=== PATIENT | male | born 1930 | race Caucasian/White ===

== ENCOUNTER → 2016-04-15 | Outpatient (CLI) | payer MEDICARE, OTHER ==
[2016-04-15 10:26] LABS: HEMATOCRIT 35.2 % (37.9-51.0); HEMOGLOBIN 11.2 g/dL (13.5-17.0); HGB HCT DIFFERENCE -1.6; MEAN CORPUSCULAR HEMOGLOBIN 28.8 pg (27.0-33.4); MEAN CORPUSCULAR HGB CONC 31.8 g/dL (32.0-36.0); MEAN CORPUSCULAR VOLUME 91 fl (80-97); RED BLOOD COUNT 3.88 10^6/uL (4.35-5.55); RED CELL DISTRIBUTION WIDTH 13.8 % (11.5-14.0); WHITE BLOOD COUNT 13.1 10^3/uL (4.0-10.5)
[2016-04-15 10:35] LABS: APPEARANCE,URINE CLEAR; BILIRUBIN,URINE NEGATIVE (NEGATIVE); GLUCOSE, URINE NEGATIVE (NEGATIVE); KETONES,URINE NEGATIVE (NEGATIVE); LEUKOCYTE ESTERASE,URINE NEGATIVE (NEGATIVE); NITRITE,URINE NEGATIVE (NEGATIVE); PROTEIN,URINE NEGATIVE (NEGATIVE); URINE SPECIFIC GRAVITY 1.011; UROBILINOGEN,URINE NEGATIVE mg/dL (<2.0)
[2016-04-15 10:51] LABS: ANION GAP 14 (5-19); BLOOD UREA NITROGEN 26 mg/dL (7-20); CALCIUM 9.6 mg/dL (8.4-10.2); CARBON DIOXIDE 25 mmol/L (22-30); CHLORIDE 102 mmol/L (98-107); CREATININE RESULT 1.75 mg/dL (0.52-1.25); GLUCOSE 142 mg/dL (75-110); POTASSIUM 4.8 mmol/L (3.6-5.0); SODIUM 140.7 mmol/L (137-145)
== END ==
LOC: OD 09:36
PROVIDERS: ATTEND Internal Medicine Nephrology
DX: N18.3 Chronic kidney disease, stage 3 (moderate) (principal); E11.9 Type 2 diabetes mellitus without complications; I50.9 Heart failure, unspecified
CPT/HCPCS: 36415; 80048; 81001; 85027

== ENCOUNTER 2016-06-12 20:57 | Inpatient (IN) | payer MEDICARE, OTHER ==
[2016-06-12] MEDS ORDERED: IPRATROPIUM/ALBUTEROL 0.5-2.5 MG/3 ML AMPUL NEB ONE ×2 (21:36→21:39)
[2016-06-12] MEDS ORDERED: ALBUTEROL SULFATE 0.083% NEB 2.5 MG/3 ML AMPUL NEB ONE ×2 (21:36→21:39)
[2016-06-12] MEDS ORDERED: METHYLPREDNISOLONE INJ 125 MG/2 ML SDV IV ONE (21:37)
--- NOTE | 2016-06-12 21:39 | ER Document Report ---
ED Respiratory Problem - General Chief Complaint: Shortness Of Breath Stated Complaint: WEAKNESS Time seen by provider: 21:37 Mode of Arrival: Medic Information source: Patient TRAVEL OUTSIDE OF THE [place] IN LAST 30 DAYS: No - HPI Patient complains to provider of: Chest pain, COPD, Cough, Short of breath Onset: Other - 3-4 days Duration: Worse/persistent Quality of pain: Achy Severity: Moderate Context: Hx CHF, Hx COPD Short of Breath: Severe Chest pain/discomfort: Tightness Cough: Productive Sputum amount: Small Sputum color: [place] tinged, White Sputum consistency: Mucoid Associated symptoms: Chest pain/discomfort, Congestion, Cough, Difficulty breathing, Wheezing Similar symptoms previously: Yes Recently seen / treated by doctor: No Notes: Patient is an 86-year-old male presenting to the emergency room complaining of productive cough 3-4 days with difficulty breathing and chest pain, he reports the cough is productive of whitish colored phlegm which is blood-tinged at times , he denies a fever, no sick contacts, no recent traveling, patient denies being hospitalized recently, has not been on antibiotics or steroids recently either - Related Data Allergies/Adverse Reactions: Penicillins Allergy (Severe, Verified 01/24/14 11:39) HIVES SWELLING Sulfa (Sulfonamide Antibiotics) Allergy (Severe, Verified 01/24/14 11:39) Hives Past Medical History - General Information source: Patient - Social History Smoking Status: Former Smoker Family History: Reviewed & Not Pertinent - Past Medical History Cardiac Medical History: Reports: Hx Congestive Heart Failure, Hx Hypercholesterolemia, Hx Hypertension Pulmonary Medical History: Reports: Hx Asthma, Hx Bronchitis, Hx COPD, Hx Pneumonia Endocrine Medical History: Reports: Hx Diabetes Mellitus Type 2 Renal/ Medical History: Denies: Hx Peritoneal Dialysis GI Medical History: Reports: Hx Gastroesophageal Reflux Disease, Hx Hiatal Hernia Musculoskeltal Medical History: Reports Hx Arthritis Psychiatric Medical History: Denies: Hx Depression Past Surgical History: Denies: Hx Open Heart Surgery - Immunizations Hx Diphtheria, Pertussis, Tetanus Vaccination: Yes Hx Pneumococcal Vaccination: 12/18/13 Review of Systems - Review of Systems Constitutional: No symptoms reported EENT: No symptoms reported Cardiovascular: See HPI Respiratory: See HPI Gastrointestinal: No symptoms reported Genitourinary: No symptoms reported Male Genitourinary: No symptoms reported Musculoskeletal: No symptoms reported Skin: No symptoms reported Hematologic/Lymphatic: No symptoms reported Neurological/Psychological: No symptoms reported -: Yes All other systems reviewed and negative Physical Exam - Vital signs Vitals: Resp Pulse Ox 23 H 92 06/12/16 21:10 06/12/16 21:10 Interpretation: Tachycardic, Hypoxic, Tachypneic - General General appearance: Alert In distress: Moderate - HEENT Head: Normocephalic, Atraumatic Eyes: Normal Conjunctiva: Normal Extraocular movements intact: Yes Eyelashes: Normal Pupils: PERRL Pharynx: Normal Neck: Normal - Respiratory Respiratory status: Respiratory distress, Labored, Pursed lip breathing, Tachypnea Chest status: Nontender Breath sounds: Decreased air movement, Nonproductive cough, Wheezing Chest palpation: Normal - Cardiovascular Rhythm: Regular Heart sounds: Normal auscultation Murmur: No - Abdominal Inspection: Normal Distension: No distension Bowel sounds: Normal Tenderness: Nontender Organomegaly: No organomegaly - Back Back: Normal, Nontender - Extremities General upper extremity: Normal inspection, Nontender, Normal ROM, Normal temperature General lower extremity: Normal inspection, Nontender, Normal ROM, Normal temperature. No: Yolanda's sign - Neurological Neuro grossly intact: Yes Cognition: Normal Orientation: AAOx4 [place] Coma Scale Eye Opening: Spontaneous [place] Coma Scale Verbal: Oriented [place] Coma Scale Motor: Obeys Commands [place] Coma Scale Total: 15 Speech: Normal Motor strength normal: LUE, RUE, LLE, RLE Sensory: Normal - Psychological Associated symptoms: Normal affect, Normal mood - Skin Skin Temperature: Warm Skin Moisture: Dry Skin Color: Normal Course - Re-evaluation Re-evalutation: 06/13/16 03:51 Patient with COPD exacerbation and evidence of pneumonia on imaging, he was placed on BiPAP during my initial evaluation and has been doing much better, patient was started on antibiotics, provided with IV steroids and breathing treatments and admitted to the hospitalist service for further evaluation and treatment 06/13/16 03:58 I discussed end of care wishes with patient at bedside with son-in-law presents , patient did confirm that he is a DNR/DNI - Vital Signs Vital signs: Temp Pulse Resp BP Pulse Ox 19 144/66 H 96 06/13/16 01:01 06/13/16 01:01 06/13/16 02:27 - Laboratory Result Diagrams: 06/12/16 21:11 06/12/16 21:11 Laboratory results interpreted by me: 06/12/16 06/12/16 06/12/16 21:11 21:11 21:11 WBC 13.3 H RBC 3.46 L Hgb 10.0 L Hct 30.7 L RDW 14.3 H Absolute Neutrophils 10.1 H BUN 39 H Creatinine 1.85 H Est GFR ( Amer) 42 L Est GFR (Non-Af Amer) 35 L Glucose 216 H Magnesium Creatine Kinase 192 H NT-Pro-B Natriuret Pep TSH 06/12/16 06/12/16 06/12/16 21:11 21:11 21:11 WBC RBC Hgb Hct RDW Absolute Neutrophils BUN Creatinine Est GFR ( Amer) Est GFR (Non-Af Amer) Glucose Magnesium 2.4 H Creatine Kinase NT-Pro-B Natriuret Pep 1640 H TSH 6.44 H - Diagnostic Test Radiology reviewed: Image reviewed, Reports reviewed - EKG Interpretation by Me EKG shows normal: Sinus rhythm Rate: Normal Rhythm: NSR - Transfer of Care Care transferred to following provider: Dr. Mcrae Critical Care Note - Critical Care Note Total time excluding time spent on procedures (mins): 45 Comments: Patient with COPD exacerbation and respiratory distress requiring BiPAP placement, multiple breathing treatments, IV treatments and admission Discharge - Discharge Clinical Impression: COPD exacerbation Pneumonia Qualifiers: Pneumonia type: due to unspecified organism Laterality: left Lung location: lower lobe of lung Qualified Code(s): J18.1 - Lobar pneumonia, unspecified organism Condition: Fair Disposition: ADMITTED INPATIENT Admitting Provider: Hospitalist Unit Admitted: [facility]
[2016-06-12 21:42] LABS: ABSOLUTE BASOPHILS # (AUTO) 0.1 10^3/uL (0.0-0.2); ABSOLUTE EOSINOPHILS # (AUTO) 0.2 10^3/uL (0.0-0.6); ABSOLUTE LYMPHOCYTES (AUTO) 1.8 10^3/uL (0.5-4.7); ABSOLUTE MONOCYTES (AUTO) 1.1 10^3/uL (0.1-1.4); ABSOLUTE NEUT (AUTO) 10.1 10^3/uL (1.7-8.2); BASOPHILS % (AUTO) 0.4 % (0-2); EOSINOPHILS % (AUTO) 1.3 % (0-6); HEMATOCRIT 30.7 % (37.9-51.0); HGB HCT DIFFERENCE -0.7; LYMPHOCYTES % (AUTO) 13.4 % (13-45); MEAN CORPUSCULAR HEMOGLOBIN 28.8 pg (27.0-33.4); MEAN CORPUSCULAR HGB CONC 32.5 g/dL (32.0-36.0); MEAN CORPUSCULAR VOLUME 89 fl (80-97); MONOCYTES % (AUTO) 8.5 % (3-13); RED BLOOD COUNT 3.46 10^6/uL (4.35-5.55); RED CELL DISTRIBUTION WIDTH 14.3 % (11.5-14.0); SEGMENTED NEUTROPHILS % (AUTO) 76.4 % (42-78); WHITE BLOOD COUNT 13.3 10^3/uL (4.0-10.5)
[2016-06-12 22:03] LABS: ALANINE AMINOTRANSFERASE 49 U/L (21-72); ALBUMIN 3.5 g/dL (3.5-5.0); ALKALINE PHOSPHATASE 71 U/L (38-126); ANION GAP 16 (5-19); ASPARTATE AMINO TRANSFERASE 56 U/L (17-59); BILIRUBIN,DIRECT 0.3 mg/dL (0.0-0.4); BILIRUBIN,TOTAL 0.6 mg/dL (0.2-1.3); BLOOD UREA NITROGEN 39 mg/dL (7-20); CALCIUM 8.8 mg/dL (8.4-10.2); CARBON DIOXIDE 24 mmol/L (22-30); CHLORIDE 102 mmol/L (98-107); CREATININE RESULT 1.85 mg/dL (0.52-1.25); GLUCOSE 216 mg/dL (75-110); POTASSIUM 4.4 mmol/L (3.6-5.0); SODIUM 142.4 mmol/L (137-145); TOTAL PROTEIN 6.5 g/dL (6.3-8.2)
[2016-06-12] MEDS ORDERED: LEVOFLOXACIN RTU 750 MG/D5W 150 ML IV ONE (22:47)
[2016-06-12 22:50] LABS: CREATINE KINASE MB 1.31 ng/mL (<4.55)
[2016-06-12 22:51] LABS: TROPONIN I < 0.012 ng/mL
[2016-06-13] MEDS ORDERED: DEXTROSE 50%-WATER 25 GM/50 ML DISP.SYRIN IV PRN ×2 (01:27)
[2016-06-13] MEDS ORDERED: DEXTROSE 40% GEL 15 GM TUBE PO PRN ×2 (01:27)
[2016-06-13] MEDS ORDERED: GLUCAGON,HUMAN RECOMB 1 MG INJ IM PRN (01:27)
[2016-06-13] MEDS ORDERED: NORMAL SALINE 1000 ML 1,000 ML IV PRN (01:31)
[2016-06-13] MEDS ORDERED: ACETAMINOPHEN 325 MG TABLET PO PRN (01:32)
[2016-06-13] MEDS ORDERED: ALBUTEROL SULFATE 0.083% NEB 2.5 MG/3 ML AMPUL NEB PRN (01:32)
[2016-06-13] MEDS ORDERED: GENTAMICIN SULFATE 0 MG in DEXTROSE 5%-WATER 100 ML IV NR (01:45)
[2016-06-13] MEDS ORDERED: PHARMACY COMMUNICATION ORDER MC NR (01:45)
[2016-06-13 01:58] LABS: ADD ON TESTING BLD IN LAB ACKNOWLEDGE
[2016-06-13 02:10] LABS: MAGNESIUM 2.4 mg/dL (1.6-2.3)
--- NOTE | 2016-06-13 02:11 | PDOC H&P ---
History of Present Illness Admission Date/PCP: 06/13/16 00:26 PCP Sabina Ray Patient complains of: sob History of Present Illness: RADHA VERA is a 86 year old male with underlying home O2 dependent COPD, 2-1/2 L oxygen per nasal cannula 10/10, along with insulin- dependent diabetes mellitus, hypertension, hyperlipidemia, esophageal reflux disease, congestive heart failure, easy bruising, prostatic hypertrophy, and arthritis, who presents to the emergency room for evaluation of a 3-4 day history of slowly progressive difficulty breathing. Has had associated shaking chills. Mild chest discomfort when his breathing is at its worst. Was in fairly significant respiratory distress upon arrival in the emergency room, but now with application BiPAP, along with other treatment, he is breathing more comfortably. No ongoing chest discomfort. Denies nausea vomiting diarrhea or dysuria. No hospitalization or antibiotic use in the past 3 months. Never intubated for respiratory difficulty. Up-to-date with both flu and pneumonia vaccinations. Patient has been discussed with emergency room physician who evaluated the patient. . Laboratory results are listed in [employer] and are reviewed. X-ray summary results are listed below, with full report(s) reviewed. . EKG reviewed. Social history/personal habits: . Has children. Lives alone. No use of alcohol tobacco or illicit drugs. Retired. Allergies/adverse reactions are listed in [employer] and are reviewed. Uncertain if he can tolerate cephalosporins. Home medications Home medications initially autopopulated into [employer] may not accurately reflect patient's true medications, dosages, and/or frequencies. Unfortunately, patient uncertain of medications/dosages/frequencies. REVIEW OF SYSTEMS: Constitutional: See history and present illness. Eyes: Wears glasses. ENT: No swallowing problems or complaints. Partial hearing loss. Pulmonary: See history and present illness. Cardiovascular: See history and present illness. Gastrointestinal: No current complaints, including nausea or vomiting. Skin: No current complaints, including rashes. Hematologic: Easy bruising. Neurologic: Chronic numbness and tingling of his lower extremities due to his diabetes mellitus. Musculoskeletal: Joint pain from arthritis. Psychiatric: No current complaints, including anxiety or depression. Endocrine: No current complaints, including polyuria. Genitourinary: No current complaints, including dysuria. PHYSICAL EXAMINATION: Neither height nor weight are recorded on the chart. Temperature not recorded on the chart. Skin feels normothermic. Blood pressure 145/ 64. Pulse 88 and regular. Respirations are 24 and unlabored. 94% saturation on BiPAP 12/6, 40% FiO2. Well-nourished well-developed elderly male appearing approximately his stated age. Pleasant awake alert and cooperative. Appears to feel perhaps slightly fatigued. Also appears to feel a bit under the weather, so to speak. Mildly anxious, without agitation. Skin is warm and dry. No grossly obvious evidence of rash in areas of skin examined. No subcutaneous nodules palpated. ENT: Hearing grossly normal to normal conversation. Tongue midline on protrusion pink and slightly tacky. Exam slightly limited by BiPAP mask with attaching straps. Eyes: No scleral icterus. Pupils equal and reactive to light at 4 mm. [place] conjunctivae. Neck is supple and nontender to gentle active range of motion and palpation. Midline trachea. No palpable thyroid nodule mass enlargement or tenderness. Lymphatic: No palpable cervical or clavicular nodes. Neck and lymphatic exams limited by patient body habitus. Exam slightly limited by BiPAP mask with attaching straps. Psychiatric: Reasonable insight into acute and chronic medical issues. Oriented to time location and why here. Lungs: Auscultation reveals equal breath sounds bilaterally. No use of accessory respiratory muscles. Faint brief early expiratory wheezing, and very slightly coarse breath sounds, perhaps a bit more noticeable on the left. Cardiovascular: Heart regular rate and rhythm, without gallop murmur or rub. No abdominal aortic bruits. Difficult to evaluate for carotid bruit due to airway sounds from BiPAP device. No ankle or pedal edema. Faintly palpable dorsalis pedis pulses. Abdomen: soft, , slightly distended nontender with positive bowel sounds. Unable to adequately evaluate abdomen for masses or organomegaly due to distention. Extremities: Feet are warm and dry. No calf tenderness to compression. No grossly obvious visual evidence of calf swelling. Gentle manipulation of lower extremities fails to reveal any obvious evidence of injury or instability to knees hips or ankles. Neurologic: Moves upper extremities grossly normally. Patellar reflexes absent. Absent Babinski. Light touch is decreased at feet. Dorsiflexion and plantarflexion of feet 5 / 5 and symmetric. Past Medical History Cardiac Medical History: Reports: Congestive Heart Failure, Hyperlipidema, Hypertension Denies: DVT, Myocardial Infarction, Pulmonary Embolism Pulmonary Medical History: Reports: Asthma, Bronchitis, Chronic Obstructive Pulmonary Disease (COPD), Pneumonia Denies: Sleep Apnea EENT Medical History: Reports: Eyes - Glasses, Ears - Partial hearing loss Neurological Medical History: Reports: Other - Prior TIA Denies: Hemorrhagic CVA, Ischemic CVA, Seizures Endocrine Medical History: Reports: Diabetes Mellitus Type 1 Denies: Diabetes Mellitus Type 2, Hyperthyroidism, Hypothyroidism Malignancy Medical History: Reports: Skin Cancer GI Medical History: Reports: Gastroesophageal Reflux Disease, Hiatal Hernia Denies: Cirrhosis, Hepatitis, Peptic Ulcer Disease Musculoskeltal Medical History: Reports: Arthritis Psychiatric Medical History: Denies: Alcohol Dependency, Depression, General Anxiety Disorder, Substance Abuse, Tobacco Dependency Hematology: Reports: Other - Easy bruising Denies: Anemia, Sickle Cell Disease Infectious Medical History: Reports: Methicillin-Resistant Staph Aureus Denies: Clostridium Difficile, Hepatitis B, Hepatitis C Past Surgical History Past Surgical History: Reports: Other - Excision of lipoma from his buttock. Colonoscopy 3. Social History Information Source: Patient, Emergency Med Personnel, [facility] Records Lives with: Alone Smoking Status: Unknown if Ever Smoked Frequency of Alcohol Use: None Hx Recreational Drug Use: No Hx Prescription Drug Abuse: No - Advance Directive Resuscitation Status: Full Code Surrogate healthcare decision maker:: Stepdaughter Marlyn Family History Family History: Reviewed & Not Pertinent Parental Family History Reviewed: Yes Children Family History Reviewed: Yes Sibling(s) Family History Reviewed.: Yes Medication/Allergy Home Medications: Acetaminophen [Tylenol Arthritis] 650 mg PO DAILY 06/13/16 Albuterol Sulfate [Proair Hfa Inhalation Aerosol 8.5 gm Mdi] 2 puff IH Q4HP PRN 06/13/16 Aspirin [Aspirin EC] 81 mg PO DAILY 06/13/16 Atorvastatin Calcium [Lipitor 10 mg Tablet] 10 mg PO QHS 06/13/16 Budesonide [Pulmicort Neb 0.5 mg/2 ml Ampul] 0.5 mg NEB RTQ12 06/13/16 Calcium Carbonate [Calcium] 600 mg PO NOON 06/13/16 Esomeprazole Mag Trihydrate [Nexium] 40 mg PO QPM 06/13/16 Fexofenadine HCl [Lis] 180 mg PO DAILY 06/13/16 Finasteride [Proscar 5 mg Tablet] 5 mg PO QPM 06/13/16 Fluticasone/Salmeterol [Advair 250-50 Diskus 28 dose] 1 inh IH Q12 06/13/16 Furosemide [Lasix] 20 mg PO DAILY 06/13/16 Gabapentin [Neurontin] 800 mg PO TID 06/13/16 Guaifenesin [Mucinex] 600 mg PO BID 06/13/16 Insulin Aspart [Novolog Insulin 100 Unit/1 ml 10 ml] 0 unit SUBCUT .SLD SCALE Insulin Glargine,Hum.rec.anlog [Lantus Solostar] 10 unit SQ QHS 06/13/16 Lisinopril [Prinivil 10 mg Tablet] 10 mg PO DAILY 06/13/16 Multivit-Min/FA/Lycopen/Lutein [Centrum Silver Men Tablet] 1 each PO DAILY 06/13 Tamsulosin HCl [Flomax 0.4 mg Cap.sr] 0.4 mg PO QPM 06/13/16 Tiotropium [place] [Spiriva Handihaler 18 mcg/dose (30 Dose)] 1 cap IH DAILY Verapamil HCl [Verapamil ER] 240 mg PO BID 06/13/16 Allergies/Adverse Reactions: Penicillins Allergy (Severe, Verified 01/24/14 11:39) HIVES SWELLING Sulfa (Sulfonamide Antibiotics) Allergy (Severe, Verified 01/24/14 11:39) Hives Physical Exam Vital Signs: Temp Pulse Resp BP Pulse Ox 19 144/66 H 92 06/13/16 01:01 06/13/16 01:01 06/13/16 01:01 Results Impressions: Chest X-Ray 06/12/16 21:22 IMPRESSION: CHRONIC SCARRING. INFILTRATE IN THE LEFT LUNG CONSISTENT WITH PNEUMONIA. Assessment & Plan - Diagnosis (1) Acute and chronic respiratory failure Qualifiers: Respiratory failure complication: unspecified whether with hypoxia or hypercapnia Qualified Code(s): J96.20 - Acute and chronic respiratory failure, unspecified whether with hypoxia or hypercapnia Is this a current diagnosis for this admission?: YesPlan: Patient will be admitted under COPD exacerbation and pneumonia protocol. Incentive spirometry twice a day. Scheduled DuoNeb's. PRN albuterol nebs Solu-Medrol Prevacid for gastritis prophylaxis. Antibiotics will consist of intravenous Zithromax, along with aztreonam and gentamicin. Pharmacy to assist with dosing.. I strongly encouraged patient to notify staff should patient feel that shortness of breath is worsening. I have strongly encouraged patient not to get out of bed without notifying staff , , to avoid a fall with injury. Knee high SCDs for DVT prophylaxis, along with subcutaneous heparin. Impression and plans were discussed with patient, who concurs. Time spent in evaluation and management of patient: 69 minutes. (2) COPD exacerbation Is this a current diagnosis for this admission?: Yes (3) LLL pneumonia Qualifiers: Pneumonia type: due to unspecified organism Qualified Code(s): J18.1 - Lobar pneumonia, unspecified organism Is this a current diagnosis for this admission?: Yes (4) CKD (chronic kidney disease), stage III Is this a current diagnosis for this admission?: YesPlan: Follow-up chemistry. 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 Accu-Cheks with appropriate sliding scale coverage.Resume home medications as appropriate once these have been determined and reviewed. (6) HLD (hyperlipidemia) Qualifiers: Hyperlipidemia type: unspecified Qualified Code(s): E78.5 - Hyperlipidemia, unspecified Is this a current diagnosis for this admission?: YesPlan: Resume home medications as appropriate once these have been determined and reviewed. (7) HTN (hypertension) Qualifiers: Hypertension type: essential hypertension Qualified Code(s): I10 - Essential (primary) hypertension Is this a current diagnosis for this admission?: YesPlan: Resume home medications as appropriate once these have been determined and reviewed. (8) DNR (do not resuscitate) Is this a current diagnosis for this admission?: YesPlan: Implications of DO NOT RESUSCITATE/DO NOT INTUBATE status discussed with patient. Discussed in layperson's terms. Implications understood. Patient is the health care decision maker. Patient conversation is lucid and appropriate. Patient desires DO NOT RESUSCITATE/DO NOT INTUBATE status. Will honor patient wishes. - Inpatient Certification Based on my medical assessment, after consideration of the patient's comorbidities, presenting symptoms, or acuity I expect that the services needed warrant INPATIENT care.: Yes I certify that my determination is in accordance with my understanding of Medicare's requirements for reasonable and necessary INPATIENT services [42 CFR 412.3e].: Yes Medical Necessity: Significant Comorbidiites Make Outpatient Treatment Too Risky , Need Close Monitoring Due to Risk of Patient Decompensation, Need For IV Fluids, Need For Continuous Telemetry Monitoring, Need for Nebulizer Therapy and Monitoring of Response, Need for IV Antibiotics, Risk of Complication if Not Cared For in Hospital, Risk of Diagnosis Which Will Require Inpatient Eval/ Care/Monitoring Post Hospital Care: D/C or Transfer Summary
[2016-06-13 02:13] LABS: VENOUS BLOOD BASE EXCESS -0.5 mmol/L; VENOUS BLOOD HCO3 23.1 mmol/L (20-32); VENOUS BLOOD PCO2 34.5 mmHg (35-63); VENOUS BLOOD PH 7.44 (7.30-7.42)
[2016-06-13] MEDS ORDERED: AZTREONAM INJ 1 GM VIAL IV PRN (02:24)
[2016-06-13] MEDS ORDERED: GENTAMICIN SULFATE INJ 80 MG/2 ML VIAL IV PRN (02:51)
[2016-06-13] MEDS ORDERED: GENTAMICIN SULFATE 80 MG in DEXTROSE 5%-WATER 100 ML IV ONE (04:00)
[2016-06-13] MEDS ORDERED: METHYLPREDNISOLONE INJ 40 MG/1 ML SDV IV SCH (06:00)
[2016-06-13] MEDS ORDERED: AZTREONAM 1 GM in DEXTROSE 5%-WATER 50 ML IV SCH ×2 (06:00→10:00)
[2016-06-13 06:45] LABS: ABSOLUTE LYMPHOCYTES (AUTO) 0.5 10^3/uL (0.5-4.7); ABSOLUTE MONOCYTES (AUTO) 0.1 10^3/uL (0.1-1.4); ABSOLUTE NEUT (AUTO) 7.1 10^3/uL (1.7-8.2); BASOPHILS % (AUTO) 0.2 % (0-2); EOSINOPHILS % (AUTO) 0.1 % (0-6); HEMATOCRIT 28.5 % (37.9-51.0); HEMOGLOBIN 9.6 g/dL (13.5-17.0); HGB HCT DIFFERENCE 0.3; LYMPHOCYTES % (AUTO) 5.9 % (13-45); MEAN CORPUSCULAR HEMOGLOBIN 29.8 pg (27.0-33.4); MEAN CORPUSCULAR HGB CONC 33.8 g/dL (32.0-36.0); MEAN CORPUSCULAR VOLUME 88 fl (80-97); MONOCYTES % (AUTO) 1.7 % (3-13); RED BLOOD COUNT 3.23 10^6/uL (4.35-5.55); RED CELL DISTRIBUTION WIDTH 14.1 % (11.5-14.0); SEGMENTED NEUTROPHILS % (AUTO) 92.1 % (42-78); WHITE BLOOD COUNT 7.7 10^3/uL (4.0-10.5)
[2016-06-13 07:07] LABS: ANION GAP 13 (5-19); BLOOD UREA NITROGEN 37 mg/dL (7-20); CARBON DIOXIDE 22 mmol/L (22-30); CHLORIDE 106 mmol/L (98-107); CREATININE RESULT 1.49 mg/dL (0.52-1.25); GLUCOSE 319 mg/dL (75-110)
[2016-06-13] MEDS: METHYLPREDNISOLONE INJ 40 MG/1 ML SDV IV SCH ×3 (07:11→23:00)
[2016-06-13 07:28] LABS: POTASSIUM 5.4 mmol/L (3.6-5.0)
[2016-06-13] MEDS ORDERED: SODIUM POLYSTYRENE SULFONATE 15 GM/60 ML PO ONE (08:04)
[2016-06-13] MEDS: IPRATROPIUM/ALBUTEROL 0.5-2.5 MG/3 ML AMPUL NEB SCH ×3 (08:21→19:44)
[2016-06-13] MEDS: INSULIN LISPRO 100 UNIT/ML 3 ML VIAL SUBCUT PRN ×2 (09:27→23:01)
[2016-06-13 09:32] LABS: APPEARANCE,URINE CLEAR; BILIRUBIN,URINE NEGATIVE (NEGATIVE); GLUCOSE, URINE 150 mg/dL (NEGATIVE); KETONES,URINE TRACE mg/dL (NEGATIVE); LEUKOCYTE ESTERASE,URINE NEGATIVE (NEGATIVE); NITRITE,URINE NEGATIVE (NEGATIVE); PROTEIN,URINE 30 mg/dL (NEGATIVE); URINE SPECIFIC GRAVITY 1.015; UROBILINOGEN,URINE NEGATIVE mg/dL (<2.0)
[2016-06-13] MEDS ORDERED: GENTAMICIN SULFATE 100 MG in DEXTROSE 5%-WATER 100.0 ML IV SCH (12:00)
[2016-06-13] MEDS ORDERED: SODIUM POLYSTYRENE SULFONATE 15 GM/60 ML ONE (12:01)
[2016-06-13] MEDS: AZITHROMYCIN 500 MG in DEXTROSE 5%-WATER 250 ML IV SCH (12:12)
[2016-06-13] MEDS: HEPARIN SOD (PORCINE) 5,000 UNIT/ML 1 ML SYRINGE SUBCUT SCH ×2 (12:14→23:00)
[2016-06-13] MEDS: AZTREONAM 1 GM in DEXTROSE 5%-WATER 50 ML IV SCH ×2 (15:47→23:01)
--- NOTE | 2016-06-13 16:05 | EKG REPORT ---
SEVERITY:- BORDERLINE ECG - SINUS RHYTHM BORDERLINE T ABNORMALITIES, ANTERIOR LEADS : Confirmed by: Gorge Escobedo 13-Jun-2016 16:04:42
[2016-06-13] MEDS ORDERED: INSULIN GLARGINE,HUM.REC.ANLOG 300 UNIT/3 ML INSULN.PEN SUBCUT SCH (22:00)
[2016-06-13] MEDS: LANSOPRAZOLE 30 MG TAB.RAP.DR PO SCH (22:15)
[2016-06-13] MEDS: VERAPAMIL HCL 240 MG TABLET.SA PO SCH (23:00)
[2016-06-13] MEDS: INSULIN GLARGINE,HUM.REC.ANLOG 300 UNIT/3 ML INSULN.PEN SUBCUT SCH (23:01)
[2016-06-13] MEDS: NORMAL SALINE 1000 ML 1,000 ML IV PRN (23:01)
[2016-06-14] MEDS: AZTREONAM 1 GM in DEXTROSE 5%-WATER 50 ML IV SCH ×3 (06:34→22:49)
[2016-06-14] MEDS: METHYLPREDNISOLONE INJ 40 MG/1 ML SDV IV SCH ×3 (06:35→22:48)
[2016-06-14] MEDS: LANSOPRAZOLE 30 MG TAB.RAP.DR PO SCH ×2 (06:35→16:20)
[2016-06-14] MEDS: INSULIN LISPRO 100 UNIT/ML 3 ML VIAL SUBCUT PRN ×4 (06:42→22:48)
[2016-06-14 06:56] LABS: ANION GAP 14 (5-19); BLOOD UREA NITROGEN 41 mg/dL (7-20); CALCIUM 8.8 mg/dL (8.4-10.2); CARBON DIOXIDE 23 mmol/L (22-30); CHLORIDE 109 mmol/L (98-107); CREATININE RESULT 1.24 mg/dL (0.52-1.25); GLUCOSE 239 mg/dL (75-110)
[2016-06-14 07:19] LABS: POTASSIUM 3.8 mmol/L (3.6-5.0)
[2016-06-14] MEDS: IPRATROPIUM/ALBUTEROL 0.5-2.5 MG/3 ML AMPUL NEB SCH ×3 (07:49→20:11)
[2016-06-14] MEDS: VERAPAMIL HCL 240 MG TABLET.SA PO SCH ×2 (09:16→22:47)
[2016-06-14] MEDS: HEPARIN SOD (PORCINE) 5,000 UNIT/ML 1 ML SYRINGE SUBCUT SCH ×2 (09:17→22:48)
[2016-06-14] MEDS: AZITHROMYCIN 500 MG in DEXTROSE 5%-WATER 250 ML IV SCH (09:18)
[2016-06-14] MEDS ORDERED: VERAPAMIL HCL 120 MG TABLET PO SCH (10:00)
--- NOTE | 2016-06-14 11:35 | PDOC PROGRESS REPORT ---
Subjective Progress Note for:: 06/14/16 Subjective:: Patient reports he feels much better today. Physical Exam Vital Signs: Temp Pulse Resp BP Pulse Ox 97.3 F 70 23 H 179/64 H 97 06/14/16 07:55 06/14/16 07:55 06/14/16 07:55 06/14/16 07:55 06/14/16 07:55 Intake & Output 06/13/16 06/14/16 06/15/16 06:59 06:59 06:59 Intake Total 550 Output Total 300 Balance 250 Weight 67.132 kg 63.9 kg General appearance: PRESENT: no acute distress Eye exam: PRESENT: conjunctiva pink. ABSENT: scleral icterus Mouth exam: PRESENT: moist, tongue midline Neck exam: ABSENT: JVD Respiratory exam: PRESENT: wheezes - Few scattered expiratory wheezes. Cardiovascular exam: PRESENT: RRR. ABSENT: diastolic murmur, rubs, systolic murmur GI/Abdominal exam: PRESENT: normal bowel sounds, soft. ABSENT: distended, guarding, mass, organolmegaly, rebound, tenderness Extremities exam: ABSENT: calf tenderness, clubbing, pedal edema Neurological exam: PRESENT: alert, awake, oriented to person, oriented to place , oriented to time, oriented to situation, CN II-XII grossly intact. ABSENT: motor sensory deficit Psychiatric exam: PRESENT: appropriate affect Skin exam: PRESENT: dry, intact, warm. ABSENT: cyanosis, rash Results Laboratory Results: 06/13/16 06:32 06/14/16 06:02 06/14/16 06:02 Sodium 146.0 H Potassium 3.8 D Chloride 109 H Carbon Dioxide 23 Anion Gap 14 BUN 41 H Creatinine 1.24 Est GFR ( Amer) > 60 Est GFR (Non-Af Amer) 56 L Glucose 239 H Calcium 8.8 Impressions: Chest X-Ray 06/12/16 21:22 IMPRESSION: CHRONIC SCARRING. INFILTRATE IN THE LEFT LUNG CONSISTENT WITH PNEUMONIA. Assessment & Plan - Diagnosis (1) Acute and chronic respiratory failure Qualifiers: Respiratory failure complication: unspecified whether with hypoxia or hypercapnia Qualified Code(s): J96.20 - Acute and chronic respiratory failure, unspecified whether with hypoxia or hypercapnia Is this a current diagnosis for this admission?: YesPlan: This is secondary to a combination of pneumonia and acute COPD exacerbation as well as congestive heart failure also contributing. (2) COPD exacerbation Is this a current diagnosis for this admission?: YesPlan: Improving with Solu-Medrol and nebulizers. (3) LLL pneumonia Qualifiers: Pneumonia type: due to unspecified organism Qualified Code(s): J18.1 - Lobar pneumonia, unspecified organism Is this a current diagnosis for this admission?: YesPlan: Continue with Zithromax and aztreonam. (4) Acute diastolic CHF (congestive heart failure), NYHA class 4 Is this a current diagnosis for this admission?: YesPlan: Patient is currently euvolemic. (5) Chronic renal disease, stage 4, severely decreased glomerular filtration rate (GFR) between 15-29 mL/min/1.73 square meter Is this a current diagnosis for this admission?: YesPlan: Creatinine is improving. (6) Diabetes mellitus Is this a current diagnosis for this admission?: YesPlan: Continue with Lantus and sliding scale insulin. (7) Anemia Is this a current diagnosis for this admission?: YesPlan: Anemia of chronic disease. Hemoglobin is stable. (8) HLD (hyperlipidemia) Qualifiers: Hyperlipidemia type: unspecified Qualified Code(s): E78.5 - Hyperlipidemia, unspecified Is this a current diagnosis for this admission?: Yes (9) HTN (hypertension) Qualifiers: Hypertension type: essential hypertension Qualified Code(s): I10 - Essential (primary) hypertension Is this a current diagnosis for this admission?: YesPlan: Continue with verapamil (10) DNR (do not resuscitate) Is this a current diagnosis for this admission?: Yes - Time Time Spent with patient: 25-34 minutes - Inpatient Certification Medical Necessity: Need for IV Antibiotics
[2016-06-14] MEDS ORDERED: HYDRALAZINE HCL INJ/PF 20 MG/1 ML SDV IV PRN (16:27)
[2016-06-14] MEDS: INSULIN GLARGINE,HUM.REC.ANLOG 300 UNIT/3 ML INSULN.PEN SUBCUT SCH (22:49)
[2016-06-14] MEDS: NORMAL SALINE 1000 ML 1,000 ML IV PRN (22:50)
[2016-06-15 06:27] LABS: ABSOLUTE LYMPHOCYTES (AUTO) 1.1 10^3/uL (0.5-4.7); ABSOLUTE MONOCYTES (AUTO) 0.4 10^3/uL (0.1-1.4); BASOPHILS % (AUTO) 0.1 % (0-2); HEMATOCRIT 28.9 % (37.9-51.0); HEMOGLOBIN 9.5 g/dL (13.5-17.0); HGB HCT DIFFERENCE -0.4; LYMPHOCYTES % (AUTO) 9.8 % (13-45); MEAN CORPUSCULAR HEMOGLOBIN 28.6 pg (27.0-33.4); MEAN CORPUSCULAR HGB CONC 32.7 g/dL (32.0-36.0); MEAN CORPUSCULAR VOLUME 87 fl (80-97); MONOCYTES % (AUTO) 3.5 % (3-13); RED BLOOD COUNT 3.31 10^6/uL (4.35-5.55); RED CELL DISTRIBUTION WIDTH 14.1 % (11.5-14.0); SEGMENTED NEUTROPHILS % (AUTO) 86.6 % (42-78); WHITE BLOOD COUNT 11.5 10^3/uL (4.0-10.5)
[2016-06-15 06:37] LABS: ANION GAP 16 (5-19); BLOOD UREA NITROGEN 47 mg/dL (7-20); CALCIUM 8.6 mg/dL (8.4-10.2); CARBON DIOXIDE 20 mmol/L (22-30); CHLORIDE 112 mmol/L (98-107); CREATININE RESULT 1.12 mg/dL (0.52-1.25); GLUCOSE 221 mg/dL (75-110); POTASSIUM 3.5 mmol/L (3.6-5.0); SODIUM 147.9 mmol/L (137-145)
[2016-06-15] MEDS: AZTREONAM 1 GM in DEXTROSE 5%-WATER 50 ML IV SCH ×3 (06:41→23:21)
[2016-06-15] MEDS: LANSOPRAZOLE 30 MG TAB.RAP.DR PO SCH ×2 (06:41→17:47)
[2016-06-15] MEDS: METHYLPREDNISOLONE INJ 40 MG/1 ML SDV IV SCH (06:42)
[2016-06-15] MEDS: IPRATROPIUM/ALBUTEROL 0.5-2.5 MG/3 ML AMPUL NEB SCH ×3 (08:28→21:03)
[2016-06-15] MEDS: INSULIN LISPRO 100 UNIT/ML 3 ML VIAL SUBCUT PRN ×4 (08:53→23:22)
[2016-06-15] MEDS: VERAPAMIL HCL 240 MG TABLET.SA PO SCH ×2 (10:10→23:22)
[2016-06-15] MEDS: HEPARIN SOD (PORCINE) 5,000 UNIT/ML 1 ML SYRINGE SUBCUT SCH ×2 (10:14→23:22)
[2016-06-15] MEDS: AZITHROMYCIN 500 MG in DEXTROSE 5%-WATER 250 ML IV SCH (10:19)
--- NOTE | 2016-06-15 10:59 | PDOC PROGRESS REPORT ---
Subjective Progress Note for:: 06/15/16 Subjective:: Denies any complaints. Physical Exam Vital Signs: Temp Pulse Resp BP Pulse Ox 97.5 F 79 18 166/57 H 95 06/15/16 07:36 06/15/16 08:28 06/15/16 08:28 06/15/16 07:36 06/15/16 08:28 Intake & Output 06/14/16 06/15/16 06/16/16 06:59 06:59 06:59 Intake Total 550 1953 Output Total 300 1275 Balance 250 678 Weight 63.9 kg General appearance: PRESENT: no acute distress Eye exam: PRESENT: conjunctiva pink. ABSENT: scleral icterus Mouth exam: PRESENT: moist, tongue midline Neck exam: ABSENT: carotid bruit, JVD, lymphadenopathy, thyromegaly Respiratory exam: PRESENT: wheezes - Few scattered expiratory wheezes. ABSENT: rales, rhonchi Cardiovascular exam: PRESENT: RRR. ABSENT: diastolic murmur, rubs, systolic murmur GI/Abdominal exam: PRESENT: normal bowel sounds, soft. ABSENT: distended, guarding, mass, organolmegaly, rebound, tenderness Extremities exam: ABSENT: calf tenderness, clubbing, pedal edema Neurological exam: PRESENT: alert, awake, oriented to person, oriented to place , oriented to time, oriented to situation, CN II-XII grossly intact. ABSENT: motor sensory deficit Psychiatric exam: PRESENT: appropriate affect Skin exam: PRESENT: dry, intact, warm. ABSENT: cyanosis, rash Results Laboratory Results: 06/15/16 05:41 06/15/16 05:41 06/15/16 06/15/16 05:41 05:41 WBC 11.5 H RBC 3.31 L Hgb 9.5 L Hct 28.9 L MCV 87 MCH 28.6 MCHC 32.7 RDW 14.1 H Plt Count 342 Seg Neutrophils % 86.6 H Lymphocytes % 9.8 L Monocytes % 3.5 Eosinophils % 0.0 Basophils % 0.1 Absolute Neutrophils 10.0 H Absolute Lymphocytes 1.1 Absolute Monocytes 0.4 Absolute Eosinophils 0.0 Absolute Basophils 0.0 Sodium 147.9 H Potassium 3.5 L Chloride 112 H Carbon Dioxide 20 L Anion Gap 16 BUN 47 H Creatinine 1.12 Est GFR ( Amer) > 60 Est GFR (Non-Af Amer) > 60 Glucose 221 H Calcium 8.6 06/13/16 08:48 Clean Catch Midstream Urine Culture - Final NO GROWTH 2 DAYS 06/13/16 09:00 Nasophary ([facility] Only) MRSA Surveillance Culture - Final NO MRSA RECOVERED Impressions: Chest X-Ray 06/12/16 21:22 IMPRESSION: CHRONIC SCARRING. INFILTRATE IN THE LEFT LUNG CONSISTENT WITH PNEUMONIA. Assessment & Plan - Diagnosis (1) Acute and chronic respiratory failure Qualifiers: Respiratory failure complication: unspecified whether with hypoxia or hypercapnia Qualified Code(s): J96.20 - Acute and chronic respiratory failure, unspecified whether with hypoxia or hypercapnia Is this a current diagnosis for this admission?: YesPlan: This is secondary to a combination of pneumonia and acute COPD exacerbation as well as congestive heart failure also contributing. (2) COPD exacerbation Is this a current diagnosis for this admission?: YesPlan: Improving with Solu-Medrol and nebulizers. (3) LLL pneumonia Qualifiers: Pneumonia type: due to unspecified organism Qualified Code(s): J18.1 - Lobar pneumonia, unspecified organism Is this a current diagnosis for this admission?: YesPlan: Continue with Zithromax and aztreonam. (4) Acute diastolic CHF (congestive heart failure), NYHA class 4 Is this a current diagnosis for this admission?: YesPlan: Patient is currently euvolemic. (5) Chronic renal disease, stage 4, severely decreased glomerular filtration rate (GFR) between 15-29 mL/min/1.73 square meter Is this a current diagnosis for this admission?: YesPlan: Creatinine has normalized (6) Diabetes mellitus Is this a current diagnosis for this admission?: YesPlan: Continue with Lantus and sliding scale insulin. (7) Anemia Is this a current diagnosis for this admission?: YesPlan: Anemia of chronic disease. Hemoglobin is stable. (8) HLD (hyperlipidemia) Qualifiers: Hyperlipidemia type: unspecified Qualified Code(s): E78.5 - Hyperlipidemia, unspecified Is this a current diagnosis for this admission?: Yes (9) HTN (hypertension) Qualifiers: Hypertension type: essential hypertension Qualified Code(s): I10 - Essential (primary) hypertension Is this a current diagnosis for this admission?: YesPlan: Continue with verapamil (10) DNR (do not resuscitate) Is this a current diagnosis for this admission?: Yes - Time Time Spent with patient: 25-34 minutes - Inpatient Certification Medical Necessity: Need Close Monitoring Due to Risk of Patient Decompensation
[2016-06-15] MEDS: METHYLPREDNISOLONE INJ 125 MG/2 ML SDV IV SCH ×2 (14:26→23:22)
[2016-06-15] MEDS ORDERED: ALBUTEROL SULFATE 0.083% NEB 2.5 MG/3 ML AMPUL NEB PRN (14:44)
[2016-06-15 15:32] LABS: ARTERIAL BLOOD BASE EXCESS -3.7 mmol/L; ARTERIAL BLOOD O2 SATURATION 97.2 % (94-98)
[2016-06-15] MEDS: INSULIN GLARGINE,HUM.REC.ANLOG 300 UNIT/3 ML INSULN.PEN SUBCUT SCH (23:24)
[2016-06-16 05:03] LABS: ABSOLUTE LYMPHOCYTES (AUTO) 0.9 10^3/uL (0.5-4.7); ABSOLUTE MONOCYTES (AUTO) 0.5 10^3/uL (0.1-1.4); ABSOLUTE NEUT (AUTO) 8.3 10^3/uL (1.7-8.2); BASOPHILS % (AUTO) 0.1 % (0-2); HEMATOCRIT 27.4 % (37.9-51.0); HEMOGLOBIN 9.3 g/dL (13.5-17.0); HGB HCT DIFFERENCE 0.5; LYMPHOCYTES % (AUTO) 9.3 % (13-45); MEAN CORPUSCULAR HEMOGLOBIN 29.4 pg (27.0-33.4); MEAN CORPUSCULAR HGB CONC 33.7 g/dL (32.0-36.0); MEAN CORPUSCULAR VOLUME 87 fl (80-97); MONOCYTES % (AUTO) 5.1 % (3-13); RED BLOOD COUNT 3.15 10^6/uL (4.35-5.55); RED CELL DISTRIBUTION WIDTH 13.9 % (11.5-14.0); SEGMENTED NEUTROPHILS % (AUTO) 85.5 % (42-78); WHITE BLOOD COUNT 9.7 10^3/uL (4.0-10.5)
[2016-06-16 05:18] LABS: ANION GAP 13 (5-19); BLOOD UREA NITROGEN 51 mg/dL (7-20); CALCIUM 8.9 mg/dL (8.4-10.2); CARBON DIOXIDE 24 mmol/L (22-30); CHLORIDE 112 mmol/L (98-107); CREATININE RESULT 1.18 mg/dL (0.52-1.25); GLUCOSE 226 mg/dL (75-110); POTASSIUM 3.3 mmol/L (3.6-5.0); SODIUM 149.4 mmol/L (137-145)
[2016-06-16] MEDS: METHYLPREDNISOLONE INJ 125 MG/2 ML SDV IV SCH ×3 (06:44→22:02)
[2016-06-16] MEDS: LANSOPRAZOLE 30 MG TAB.RAP.DR PO SCH ×2 (06:44→17:06)
[2016-06-16] MEDS: AZTREONAM 1 GM in DEXTROSE 5%-WATER 50 ML IV SCH ×3 (06:44→22:02)
[2016-06-16] MEDS: INSULIN LISPRO 100 UNIT/ML 3 ML VIAL SUBCUT PRN ×4 (08:17→22:43)
[2016-06-16] MEDS: IPRATROPIUM/ALBUTEROL 0.5-2.5 MG/3 ML AMPUL NEB SCH ×3 (08:30→20:47)
[2016-06-16] MEDS ORDERED: POTASSIUM CHLORIDE 10 MEQ TABLET.SA PO SCH (10:00)
[2016-06-16] MEDS: VERAPAMIL HCL 240 MG TABLET.SA PO SCH ×2 (10:09→22:02)
[2016-06-16] MEDS: HEPARIN SOD (PORCINE) 5,000 UNIT/ML 1 ML SYRINGE SUBCUT SCH ×2 (10:10→22:03)
--- NOTE | 2016-06-16 10:11 | PDOC PROGRESS REPORT ---
Subjective Progress Note for:: 06/16/16 Subjective:: Complaints of a cough Physical Exam Vital Signs: Temp Pulse Resp BP Pulse Ox 97.9 F 60 18 145/51 H 99 06/16/16 07:03 06/16/16 07:03 06/16/16 07:03 06/16/16 07:03 06/16/16 07:03 Intake & Output 06/15/16 06/16/16 06/17/16 06:59 06:59 06:59 Intake Total 1953 1810 Output Total 1275 1600 Balance 678 210 Weight 65.8 kg General appearance: PRESENT: mild distress Eye exam: PRESENT: conjunctiva pink. ABSENT: scleral icterus Mouth exam: PRESENT: moist, tongue midline Neck exam: ABSENT: JVD Respiratory exam: PRESENT: wheezes - Bilateral gastroparesis. ABSENT: rales, rhonchi Cardiovascular exam: PRESENT: RRR. ABSENT: diastolic murmur, rubs, systolic murmur GI/Abdominal exam: PRESENT: normal bowel sounds, soft. ABSENT: distended, guarding, mass, organolmegaly, rebound, tenderness Extremities exam: ABSENT: calf tenderness, clubbing, pedal edema Neurological exam: PRESENT: alert, awake, oriented to person, oriented to place , oriented to time, oriented to situation, CN II-XII grossly intact. ABSENT: motor sensory deficit Psychiatric exam: PRESENT: appropriate affect Skin exam: PRESENT: dry, intact, warm. ABSENT: cyanosis, rash Results Laboratory Results: 06/16/16 04:24 06/16/16 04:24 06/15/16 06/16/16 06/16/16 15:20 04:24 04:24 WBC 9.7 RBC 3.15 L Hgb 9.3 L Hct 27.4 L MCV 87 MCH 29.4 MCHC 33.7 RDW 13.9 Plt Count 320 Seg Neutrophils % 85.5 H Lymphocytes % 9.3 L Monocytes % 5.1 Eosinophils % 0.0 Basophils % 0.1 Absolute Neutrophils 8.3 H Absolute Lymphocytes 0.9 Absolute Monocytes 0.5 Absolute Eosinophils 0.0 Absolute Basophils 0.0 Carbonic Acid 0.89 L HCO3/H2CO3 Ratio 21:1 ABG pH 7.44 ABG pCO2 29.5 L ABG pO2 89.7 ABG HCO3 19.4 L ABG O2 Saturation 97.2 ABG Base Excess -3.7 FiO2 37% Sodium 149.4 H Potassium 3.3 L Chloride 112 H Carbon Dioxide 24 Anion Gap 13 BUN 51 H Creatinine 1.18 Est GFR ( Amer) > 60 Est GFR (Non-Af Amer) 59 L Glucose 226 H Calcium 8.9 06/13/16 08:48 Clean Catch Midstream Urine Culture - Final NO GROWTH 2 DAYS Impressions: Chest X-Ray 06/15/16 00:00 IMPRESSION: Partial clearing of the bilateral airspace disease compared to 06/12 Nodule versus infiltrate in the infrahilar region right lung. Consider chest CT for followup Assessment & Plan - Diagnosis (1) Acute and chronic respiratory failure Qualifiers: Respiratory failure complication: unspecified whether with hypoxia or hypercapnia Qualified Code(s): J96.20 - Acute and chronic respiratory failure, unspecified whether with hypoxia or hypercapnia Is this a current diagnosis for this admission?: YesPlan: This is secondary to a combination of pneumonia and acute COPD exacerbation as well as congestive heart failure also contributing. (2) COPD exacerbation Is this a current diagnosis for this admission?: YesPlan: Continue with Solu-Medrol and nebulizers. (3) LLL pneumonia Qualifiers: Pneumonia type: due to unspecified organism Qualified Code(s): J18.1 - Lobar pneumonia, unspecified organism Is this a current diagnosis for this admission?: YesPlan: Continue with Zithromax and aztreonam. (4) Acute diastolic CHF (congestive heart failure), NYHA class 4 Is this a current diagnosis for this admission?: YesPlan: Patient is currently euvolemic. (5) Chronic renal disease, stage 4, severely decreased glomerular filtration rate (GFR) between 15-29 mL/min/1.73 square meter Is this a current diagnosis for this admission?: YesPlan: Creatinine has normalized (6) Diabetes mellitus Is this a current diagnosis for this admission?: YesPlan: Continue with Lantus and sliding scale insulin. (7) Anemia Is this a current diagnosis for this admission?: YesPlan: Anemia of chronic disease. Hemoglobin is stable. (8) HLD (hyperlipidemia) Qualifiers: Hyperlipidemia type: unspecified Qualified Code(s): E78.5 - Hyperlipidemia, unspecified Is this a current diagnosis for this admission?: Yes (9) HTN (hypertension) Qualifiers: Hypertension type: essential hypertension Qualified Code(s): I10 - Essential (primary) hypertension Is this a current diagnosis for this admission?: YesPlan: Continue with verapamil (10) DNR (do not resuscitate) Is this a current diagnosis for this admission?: Yes - Time Time Spent with patient: 25-34 minutes - Inpatient Certification Medical Necessity: Need Close Monitoring Due to Risk of Patient Decompensation, Need for Nebulizer Therapy and Monitoring of Response, Need for IV Antibiotics
[2016-06-16] MEDS: AZITHROMYCIN 500 MG in DEXTROSE 5%-WATER 250 ML IV SCH (10:12)
[2016-06-16] MEDS: POTASSIUM CHLORIDE 10 MEQ TABLET.SA PO SCH ×2 (10:37→22:02)
[2016-06-16] MEDS: INSULIN GLARGINE,HUM.REC.ANLOG 300 UNIT/3 ML INSULN.PEN SUBCUT SCH (22:43)
[2016-06-17] MEDS: LANSOPRAZOLE 30 MG TAB.RAP.DR PO SCH ×2 (05:09→17:19)
[2016-06-17] MEDS: AZTREONAM 1 GM in DEXTROSE 5%-WATER 50 ML IV SCH ×3 (05:09→21:53)
[2016-06-17] MEDS: METHYLPREDNISOLONE INJ 125 MG/2 ML SDV IV SCH ×3 (05:10→21:54)
[2016-06-17 05:48] LABS: ABSOLUTE LYMPHOCYTES (AUTO) 0.6 10^3/uL (0.5-4.7); ABSOLUTE MONOCYTES (AUTO) 0.4 10^3/uL (0.1-1.4); ABSOLUTE NEUT (AUTO) 9.1 10^3/uL (1.7-8.2); BASOPHILS % (AUTO) 0.2 % (0-2); HEMOGLOBIN 9.1 g/dL (13.5-17.0); HGB HCT DIFFERENCE 0.3; MEAN CORPUSCULAR HEMOGLOBIN 29.3 pg (27.0-33.4); MEAN CORPUSCULAR HGB CONC 33.6 g/dL (32.0-36.0); MEAN CORPUSCULAR VOLUME 87 fl (80-97); MONOCYTES % (AUTO) 4.4 % (3-13); RED CELL DISTRIBUTION WIDTH 14.1 % (11.5-14.0); SEGMENTED NEUTROPHILS % (AUTO) 89.4 % (42-78); WHITE BLOOD COUNT 10.2 10^3/uL (4.0-10.5)
[2016-06-17 06:01] LABS: ANION GAP 11 (5-19); BLOOD UREA NITROGEN 64 mg/dL (7-20); CALCIUM 8.6 mg/dL (8.4-10.2); CARBON DIOXIDE 22 mmol/L (22-30); CHLORIDE 112 mmol/L (98-107); CREATININE RESULT 1.26 mg/dL (0.52-1.25); GLUCOSE 216 mg/dL (75-110); POTASSIUM 4.8 mmol/L (3.6-5.0); SODIUM 145.3 mmol/L (137-145)
[2016-06-17] MEDS: IPRATROPIUM/ALBUTEROL 0.5-2.5 MG/3 ML AMPUL NEB SCH ×3 (08:11→20:22)
[2016-06-17] MEDS: INSULIN LISPRO 100 UNIT/ML 3 ML VIAL SUBCUT PRN ×3 (08:28→21:54)
[2016-06-17] MEDS: GUAIFENESIN SYRP 200 MG/10 ML UDC PO PRN (08:29)
--- NOTE | 2016-06-17 10:00 | PDOC PROGRESS REPORT ---
Subjective Progress Note for:: 06/17/16 Subjective:: Complaints of a cough Physical Exam Vital Signs: Temp Pulse Resp BP Pulse Ox 97.6 F 49 L 18 151/49 H 95 06/17/16 07:40 06/17/16 08:57 06/17/16 07:40 06/17/16 07:40 06/17/16 07:40 Intake & Output 06/16/16 06/17/16 06/18/16 06:59 06:59 06:59 Intake Total 1810 9 Output Total 1600 525 Balance 210 1504 Weight 65.8 kg General appearance: PRESENT: no acute distress Eye exam: PRESENT: conjunctiva pink. ABSENT: scleral icterus Mouth exam: PRESENT: moist, tongue midline Neck exam: ABSENT: JVD Respiratory exam: PRESENT: wheezes - Bilateral aspirin wheezes. ABSENT: rales, rhonchi Cardiovascular exam: PRESENT: RRR. ABSENT: diastolic murmur, rubs, systolic murmur GI/Abdominal exam: PRESENT: normal bowel sounds, soft. ABSENT: distended, guarding, mass, organolmegaly, rebound, tenderness Extremities exam: ABSENT: calf tenderness, clubbing, pedal edema Neurological exam: PRESENT: alert, awake, oriented to person, oriented to place , oriented to time, oriented to situation, CN II-XII grossly intact. ABSENT: motor sensory deficit Psychiatric exam: PRESENT: appropriate affect Skin exam: PRESENT: dry, intact, warm. ABSENT: cyanosis, rash Results Laboratory Results: 06/17/16 04:26 06/17/16 04:26 06/17/16 06/17/16 04:26 04:26 WBC 10.2 RBC 3.10 L Hgb 9.1 L Hct 27.0 L MCV 87 MCH 29.3 MCHC 33.6 RDW 14.1 H Plt Count 301 Seg Neutrophils % 89.4 H Lymphocytes % 6.0 L Monocytes % 4.4 Eosinophils % 0.0 Basophils % 0.2 Absolute Neutrophils 9.1 H Absolute Lymphocytes 0.6 Absolute Monocytes 0.4 Absolute Eosinophils 0.0 Absolute Basophils 0.0 Sodium 145.3 H Potassium 4.8 Chloride 112 H Carbon Dioxide 22 Anion Gap 11 BUN 64 H Creatinine 1.26 H Est GFR ( Amer) > 60 Est GFR (Non-Af Amer) 55 L Glucose 216 H Calcium 8.6 Impressions: Chest X-Ray 06/15/16 00:00 IMPRESSION: Partial clearing of the bilateral airspace disease compared to 06/12 Nodule versus infiltrate in the infrahilar region right lung. Consider chest CT for followup Assessment & Plan - Diagnosis (1) Acute and chronic respiratory failure Qualifiers: Respiratory failure complication: unspecified whether with hypoxia or hypercapnia Qualified Code(s): J96.20 - Acute and chronic respiratory failure, unspecified whether with hypoxia or hypercapnia Is this a current diagnosis for this admission?: YesPlan: This is secondary to a combination of pneumonia and acute COPD exacerbation as well as congestive heart failure also contributing. (2) COPD exacerbation Is this a current diagnosis for this admission?: YesPlan: Continue with Solu-Medrol and nebulizers. (3) LLL pneumonia Qualifiers: Pneumonia type: due to unspecified organism Qualified Code(s): J18.1 - Lobar pneumonia, unspecified organism Is this a current diagnosis for this admission?: YesPlan: Continue with Zithromax and aztreonam. (4) Acute diastolic CHF (congestive heart failure), NYHA class 4 Is this a current diagnosis for this admission?: YesPlan: Patient is currently euvolemic. (5) Chronic renal disease, stage 4, severely decreased glomerular filtration rate (GFR) between 15-29 mL/min/1.73 square meter Is this a current diagnosis for this admission?: YesPlan: Creatinine has normalized (6) Diabetes mellitus Is this a current diagnosis for this admission?: YesPlan: Continue with Lantus and sliding scale insulin. Sugars have ranged from 221-291 (7) Anemia Is this a current diagnosis for this admission?: YesPlan: Anemia of chronic disease. Hemoglobin is stable. (8) HLD (hyperlipidemia) Qualifiers: Hyperlipidemia type: unspecified Qualified Code(s): E78.5 - Hyperlipidemia, unspecified Is this a current diagnosis for this admission?: Yes (9) HTN (hypertension) Qualifiers: Hypertension type: essential hypertension Qualified Code(s): I10 - Essential (primary) hypertension Is this a current diagnosis for this admission?: YesPlan: Continue with verapamil (10) DNR (do not resuscitate) Is this a current diagnosis for this admission?: Yes - Time Time Spent with patient: 25-34 minutes - Inpatient Certification Medical Necessity: Need Close Monitoring Due to Risk of Patient Decompensation
[2016-06-17] MEDS: HEPARIN SOD (PORCINE) 5,000 UNIT/ML 1 ML SYRINGE SUBCUT SCH ×2 (10:45→21:53)
[2016-06-17] MEDS: POTASSIUM CHLORIDE 10 MEQ TABLET.SA PO SCH ×2 (10:46→21:53)
[2016-06-17] MEDS: AZITHROMYCIN 250 MG TABLET PO SCH (10:47)
[2016-06-17] MEDS: VERAPAMIL HCL 240 MG TABLET.SA PO SCH ×2 (10:47→21:52)
[2016-06-17] MEDS: INSULIN GLARGINE,HUM.REC.ANLOG 300 UNIT/3 ML INSULN.PEN SUBCUT SCH (21:53)
[2016-06-18] MEDS: GUAIFENESIN SYRP 200 MG/10 ML UDC PO PRN (00:26)
[2016-06-18] MEDS: METHYLPREDNISOLONE INJ 125 MG/2 ML SDV IV SCH ×3 (05:31→22:12)
[2016-06-18] MEDS: AZTREONAM 1 GM in DEXTROSE 5%-WATER 50 ML IV SCH ×3 (05:31→22:14)
[2016-06-18] MEDS: LANSOPRAZOLE 30 MG TAB.RAP.DR PO SCH ×2 (05:31→16:34)
[2016-06-18 05:46] LABS: HEMATOCRIT 28.8 % (37.9-51.0); HEMOGLOBIN 9.4 g/dL (13.5-17.0); HGB HCT DIFFERENCE -0.6; MEAN CORPUSCULAR HEMOGLOBIN 28.5 pg (27.0-33.4); MEAN CORPUSCULAR HGB CONC 32.6 g/dL (32.0-36.0); MEAN CORPUSCULAR VOLUME 87 fl (80-97); RED CELL DISTRIBUTION WIDTH 14.3 % (11.5-14.0); WHITE BLOOD COUNT 11.3 10^3/uL (4.0-10.5)
[2016-06-18 05:51] LABS: ANION GAP 11 (5-19); BLOOD UREA NITROGEN 58 mg/dL (7-20); CALCIUM 8.8 mg/dL (8.4-10.2); CARBON DIOXIDE 20 mmol/L (22-30); CHLORIDE 114 mmol/L (98-107); CREATININE RESULT 1.14 mg/dL (0.52-1.25); GLUCOSE 204 mg/dL (75-110); POTASSIUM 5.3 mmol/L (3.6-5.0); SODIUM 145.3 mmol/L (137-145)
[2016-06-18 06:09] LABS: BASOPHILS % (MANUAL) 0 % (0-2); EOSINOPHILS % (MANUAL) 0 % (0-6); LYMPHOCYTES % (MANUAL) 4 % (13-45); TOTAL CELLS COUNTED 100
[2016-06-18 06:10] LABS: BURR CELLS SLIGHT; PLATELET CLUMPS PRESENT; POIKILOCYTOSIS SLIGHT; TOXIC GRANULATION SLIGHT
[2016-06-18] MEDS: IPRATROPIUM/ALBUTEROL 0.5-2.5 MG/3 ML AMPUL NEB SCH ×3 (08:14→20:48)
[2016-06-18] MEDS: AZITHROMYCIN 250 MG TABLET PO SCH (10:15)
[2016-06-18] MEDS: VERAPAMIL HCL 240 MG TABLET.SA PO SCH ×2 (10:16→22:12)
[2016-06-18] MEDS: POTASSIUM CHLORIDE 10 MEQ TABLET.SA PO SCH ×2 (10:16→22:12)
[2016-06-18] MEDS: HEPARIN SOD (PORCINE) 5,000 UNIT/ML 1 ML SYRINGE SUBCUT SCH ×2 (10:16→22:13)
--- NOTE | 2016-06-18 13:58 | PDOC PROGRESS REPORT ---
Subjective Progress Note for:: 06/18/16 Subjective:: Complaints of a cough Physical Exam Vital Signs: Temp Pulse Resp BP Pulse Ox 97.3 F 76 19 173/61 H 100 06/18/16 12:00 06/18/16 12:00 06/18/16 12:00 06/18/16 12:00 06/18/16 12:00 Intake & Output 06/17/16 06/18/16 06/19/16 06:59 06:59 06:59 Intake Total 2029 2460 118 Output Total 525 1175 100 Balance 1504 1285 18 Weight 65.8 kg General appearance: PRESENT: no acute distress Eye exam: PRESENT: conjunctiva pink. ABSENT: scleral icterus Ear exam: PRESENT: normal external ear exam Mouth exam: PRESENT: moist, tongue midline Neck exam: ABSENT: JVD Respiratory exam: PRESENT: rales - Bibasilar rails, wheezes - Expiratory wheezes in all lung hannon.. ABSENT: rhonchi Cardiovascular exam: PRESENT: RRR. ABSENT: diastolic murmur, rubs, systolic murmur GI/Abdominal exam: PRESENT: normal bowel sounds, soft. ABSENT: distended, guarding, mass, organolmegaly, rebound, tenderness Extremities exam: ABSENT: calf tenderness, clubbing, pedal edema Neurological exam: PRESENT: alert, awake, oriented to person, oriented to place , oriented to time, oriented to situation, CN II-XII grossly intact. ABSENT: motor sensory deficit Psychiatric exam: PRESENT: appropriate affect Skin exam: PRESENT: dry, intact, warm. ABSENT: cyanosis, rash Results Laboratory Results: 06/18/16 05:09 06/18/16 05:09 06/18/16 06/18/16 05:09 05:09 WBC 11.3 H RBC 3.30 L Hgb 9.4 L Hct 28.8 L MCV 87 MCH 28.5 MCHC 32.6 RDW 14.3 H Plt Count 302 Seg Neutrophils % Not Reportable Lymphocytes % Not Reportable Monocytes % Not Reportable Eosinophils % Not Reportable Basophils % Not Reportable Absolute Neutrophils Not Reportable Absolute Lymphocytes Not Reportable Absolute Monocytes Not Reportable Absolute Eosinophils Not Reportable Absolute Basophils Not Reportable Sodium 145.3 H Potassium 5.3 H Chloride 114 H Carbon Dioxide 20 L Anion Gap 11 BUN 58 H Creatinine 1.14 Est GFR ( Amer) > 60 Est GFR (Non-Af Amer) > 60 Glucose 204 H Calcium 8.8 Impressions: Chest X-Ray 06/15/16 00:00 IMPRESSION: Partial clearing of the bilateral airspace disease compared to 06/12 Nodule versus infiltrate in the infrahilar region right lung. Consider chest CT for followup Assessment & Plan - Diagnosis (1) Acute and chronic respiratory failure Qualifiers: Respiratory failure complication: unspecified whether with hypoxia or hypercapnia Qualified Code(s): J96.20 - Acute and chronic respiratory failure, unspecified whether with hypoxia or hypercapnia Is this a current diagnosis for this admission?: YesPlan: This is secondary to a combination of pneumonia and acute COPD exacerbation as well as congestive heart failure also contributing. (2) COPD exacerbation Is this a current diagnosis for this admission?: YesPlan: Continue with Solu-Medrol and nebulizers. (3) LLL pneumonia Qualifiers: Pneumonia type: due to unspecified organism Qualified Code(s): J18.1 - Lobar pneumonia, unspecified organism Is this a current diagnosis for this admission?: YesPlan: Continue with Zithromax and aztreonam. (4) Acute diastolic CHF (congestive heart failure), NYHA class 4 Is this a current diagnosis for this admission?: YesPlan: Patient is currently euvolemic. (5) Chronic renal disease, stage 4, severely decreased glomerular filtration rate (GFR) between 15-29 mL/min/1.73 square meter Is this a current diagnosis for this admission?: YesPlan: Creatinine has normalized (6) Diabetes mellitus Is this a current diagnosis for this admission?: YesPlan: Continue with Lantus and sliding scale insulin. Sugars have ranged from 194-304 (7) Anemia Is this a current diagnosis for this admission?: YesPlan: Anemia of chronic disease. Hemoglobin is stable. (8) HLD (hyperlipidemia) Qualifiers: Hyperlipidemia type: unspecified Qualified Code(s): E78.5 - Hyperlipidemia, unspecified Is this a current diagnosis for this admission?: Yes (9) HTN (hypertension) Qualifiers: Hypertension type: essential hypertension Qualified Code(s): I10 - Essential (primary) hypertension Is this a current diagnosis for this admission?: YesPlan: Continue with verapamil (10) DNR (do not resuscitate) Is this a current diagnosis for this admission?: Yes - Time Time Spent with patient: 25-34 minutes - Inpatient Certification Medical Necessity: Need Close Monitoring Due to Risk of Patient Decompensation
[2016-06-18] MEDS: NORMAL SALINE 1000 ML 1,000 ML IV PRN (16:31)
[2016-06-18] MEDS: INSULIN GLARGINE,HUM.REC.ANLOG 300 UNIT/3 ML INSULN.PEN SUBCUT SCH (22:13)
[2016-06-19] MEDS: METHYLPREDNISOLONE INJ 125 MG/2 ML SDV IV SCH ×3 (05:30→23:07)
[2016-06-19] MEDS: AZTREONAM 1 GM in DEXTROSE 5%-WATER 50 ML IV SCH ×3 (05:30→23:07)
[2016-06-19] MEDS: LANSOPRAZOLE 30 MG TAB.RAP.DR PO SCH ×2 (05:31→19:47)
[2016-06-19 06:48] LABS: HEMATOCRIT 32.2 % (37.9-51.0); HEMOGLOBIN 10.1 g/dL (13.5-17.0); HGB HCT DIFFERENCE -1.9; MEAN CORPUSCULAR HEMOGLOBIN 28.2 pg (27.0-33.4); MEAN CORPUSCULAR HGB CONC 31.4 g/dL (32.0-36.0); MEAN CORPUSCULAR VOLUME 90 fl (80-97); RED BLOOD COUNT 3.59 10^6/uL (4.35-5.55); RED CELL DISTRIBUTION WIDTH 14.6 % (11.5-14.0)
[2016-06-19 07:09] LABS: ANION GAP 13 (5-19); BLOOD UREA NITROGEN 53 mg/dL (7-20); CALCIUM 8.6 mg/dL (8.4-10.2); CARBON DIOXIDE 17 mmol/L (22-30); CHLORIDE 115 mmol/L (98-107); CREATININE RESULT 1.12 mg/dL (0.52-1.25); GLUCOSE 216 mg/dL (75-110); SODIUM 144.6 mmol/L (137-145)
[2016-06-19 07:14] LABS: POTASSIUM 6.7 mmol/L (3.6-5.0)
[2016-06-19 07:16] LABS: WHITE BLOOD COUNT 26.8 10^3/uL (4.0-10.5)
[2016-06-19 07:22] LABS: BASOPHILS % (MANUAL) 0 % (0-2); EOSINOPHILS % (MANUAL) 0 % (0-6); LYMPHOCYTES % (MANUAL) 3 % (13-45); TOTAL CELLS COUNTED 100
[2016-06-19 07:23] LABS: ANISOCYTOSIS SLIGHT; POIKILOCYTOSIS 1+; TOXIC GRANULATION 1+
[2016-06-19 07:24] LABS: BURR CELLS SLIGHT; OVALOCYTES SLIGHT; TEAR DROP CELLS SLIGHT
[2016-06-19] MEDS: IPRATROPIUM/ALBUTEROL 0.5-2.5 MG/3 ML AMPUL NEB SCH ×3 (08:21→20:56)
[2016-06-19] MEDS: AZITHROMYCIN 250 MG TABLET PO SCH (09:53)
[2016-06-19] MEDS: HEPARIN SOD (PORCINE) 5,000 UNIT/ML 1 ML SYRINGE SUBCUT SCH ×2 (09:54→23:08)
[2016-06-19] MEDS: THEOPHYLLINE ANHYDROUS 300 MG TAB.SR.12H PO SCH (09:55)
[2016-06-19] MEDS: VERAPAMIL HCL 240 MG TABLET.SA PO SCH ×2 (09:55→23:08)
[2016-06-19] MEDS: POTASSIUM CHLORIDE 10 MEQ TABLET.SA PO SCH (09:56)
--- NOTE | 2016-06-19 10:51 | PDOC PROGRESS REPORT ---
Subjective Progress Note for:: 06/19/16 Subjective:: Patient reports he feels more short of breath today. He is wearing the BiPAP. Physical Exam Vital Signs: Temp Pulse Resp BP Pulse Ox 97.6 F 70 18 177/57 H 100 06/19/16 07:44 06/19/16 07:44 06/19/16 07:44 06/19/16 07:44 06/19/16 07:44 Intake & Output 06/18/16 06/19/16 06/20/16 06:59 06:59 06:59 Intake Total 2460 1878 Output Total 1175 1055 Balance 1285 823 Weight 65.8 kg 65.4 kg General appearance: PRESENT: mild distress Eye exam: PRESENT: conjunctiva pink. ABSENT: scleral icterus Mouth exam: PRESENT: moist, tongue midline Neck exam: ABSENT: JVD Respiratory exam: PRESENT: prolonged expiratory phas, rhonchi, wheezes - Wheezes in all lung hannon Cardiovascular exam: PRESENT: RRR. ABSENT: diastolic murmur, rubs, systolic murmur GI/Abdominal exam: PRESENT: normal bowel sounds, soft. ABSENT: distended, guarding, mass, organolmegaly, rebound, tenderness Extremities exam: ABSENT: calf tenderness, clubbing, pedal edema Neurological exam: PRESENT: alert, awake, oriented to person, oriented to place , oriented to time, oriented to situation, CN II-XII grossly intact. ABSENT: motor sensory deficit Psychiatric exam: PRESENT: appropriate affect Skin exam: PRESENT: dry, intact, warm. ABSENT: cyanosis, rash Results Laboratory Results: 06/19/16 05:55 06/19/16 05:55 06/19/16 06/19/16 05:55 05:55 WBC 26.8 H D RBC 3.59 L Hgb 10.1 L Hct 32.2 L MCV 90 MCH 28.2 MCHC 31.4 L RDW 14.6 H Plt Count 313 Seg Neutrophils % Not Reportable Lymphocytes % Not Reportable Monocytes % Not Reportable Eosinophils % Not Reportable Basophils % Not Reportable Absolute Neutrophils Not Reportable Absolute Lymphocytes Not Reportable Absolute Monocytes Not Reportable Absolute Eosinophils Not Reportable Absolute Basophils Not Reportable Sodium 144.6 Potassium 6.7 H* Chloride 115 H Carbon Dioxide 17 L Anion Gap 13 BUN 53 H Creatinine 1.12 Est GFR ( Amer) > 60 Est GFR (Non-Af Amer) > 60 Glucose 216 H Calcium 8.6 Impressions: Chest X-Ray 06/15/16 00:00 IMPRESSION: Partial clearing of the bilateral airspace disease compared to 06/12 Nodule versus infiltrate in the infrahilar region right lung. Consider chest CT for followup Assessment & Plan - Diagnosis (1) Acute and chronic respiratory failure Qualifiers: Respiratory failure complication: unspecified whether with hypoxia or hypercapnia Qualified Code(s): J96.20 - Acute and chronic respiratory failure, unspecified whether with hypoxia or hypercapnia Is this a current diagnosis for this admission?: YesPlan: This is secondary to a combination of pneumonia and acute COPD exacerbation as well as congestive heart failure also contributing. The patient is very slow to improve. Because of this we will consult pulmonary medicine tomorrow. (2) COPD exacerbation Is this a current diagnosis for this admission?: YesPlan: Continue with Solu-Medrol and nebulizers. He is not improving as quickly as what I would like. We will add on theophylline and consult pulmonary medicine in the morning. (3) LLL pneumonia Qualifiers: Pneumonia type: due to unspecified organism Qualified Code(s): J18.1 - Lobar pneumonia, unspecified organism Is this a current diagnosis for this admission?: YesPlan: Continue with Zithromax and aztreonam. His white blood cell count has increased. We will repeat the chest x-ray today. (4) Acute diastolic CHF (congestive heart failure), NYHA class 4 Is this a current diagnosis for this admission?: YesPlan: Patient is still having shortness of breath and we will give IV Lasix to see if this will help with his breathing. (5) Chronic renal disease, stage 4, severely decreased glomerular filtration rate (GFR) between 15-29 mL/min/1.73 square meter Is this a current diagnosis for this admission?: YesPlan: Creatinine has normalized. However he has become acidotic. His potassium also is elevated. We'll repeat again later today. His potassium will decrease with Lasix. (6) Diabetes mellitus Is this a current diagnosis for this admission?: YesPlan: Continue with Lantus and sliding scale insulin. Sugars have ranged from 194-285 (7) Anemia Is this a current diagnosis for this admission?: YesPlan: Anemia of chronic disease. Hemoglobin is stable. (8) HLD (hyperlipidemia) Qualifiers: Hyperlipidemia type: unspecified Qualified Code(s): E78.5 - Hyperlipidemia, unspecified Is this a current diagnosis for this admission?: Yes (9) HTN (hypertension) Qualifiers: Hypertension type: essential hypertension Qualified Code(s): I10 - Essential (primary) hypertension Is this a current diagnosis for this admission?: YesPlan: Continue with verapamil (10) DNR (do not resuscitate) Is this a current diagnosis for this admission?: Yes - Time Time Spent with patient: 25-34 minutes - Inpatient Certification Medical Necessity: Need Close Monitoring Due to Risk of Patient Decompensation, Need for IV Antibiotics
[2016-06-19] MEDS ORDERED: FUROSEMIDE INJ/PF 40 MG/4 ML SDV IV ONE (11:30)
[2016-06-19 13:42] LABS: ANION GAP 13 (5-19); BLOOD UREA NITROGEN 52 mg/dL (7-20); CALCIUM 9.4 mg/dL (8.4-10.2); CARBON DIOXIDE 19 mmol/L (22-30); CHLORIDE 114 mmol/L (98-107); CREATININE RESULT 1.17 mg/dL (0.52-1.25); GLUCOSE 196 mg/dL (75-110); SODIUM 146.4 mmol/L (137-145)
[2016-06-19 13:52] LABS: POTASSIUM 5.7 mmol/L (3.6-5.0)
[2016-06-19] MEDS ORDERED: MORPHINE SULFATE 10 MG/ML INJ ONE (20:21)
[2016-06-19] MEDS ORDERED: MORPHINE SULFATE 10 MG/ML INJ IV ONE (21:00)
[2016-06-19] MEDS: FUROSEMIDE INJ/PF 40 MG/4 ML SDV IV SCH (23:07)
[2016-06-19] MEDS: INSULIN GLARGINE,HUM.REC.ANLOG 300 UNIT/3 ML INSULN.PEN SUBCUT SCH (23:08)
[2016-06-19] MEDS: INSULIN LISPRO 100 UNIT/ML 3 ML VIAL SUBCUT PRN (23:08)
[2016-06-20 05:00] LABS: HEMATOCRIT 33.1 % (37.9-51.0); HEMOGLOBIN 10.5 g/dL (13.5-17.0); HGB HCT DIFFERENCE -1.6; MEAN CORPUSCULAR HEMOGLOBIN 28.3 pg (27.0-33.4); MEAN CORPUSCULAR HGB CONC 31.8 g/dL (32.0-36.0); MEAN CORPUSCULAR VOLUME 89 fl (80-97); RED BLOOD COUNT 3.73 10^6/uL (4.35-5.55); RED CELL DISTRIBUTION WIDTH 14.5 % (11.5-14.0)
[2016-06-20] MEDS: METHYLPREDNISOLONE INJ 125 MG/2 ML SDV IV SCH ×3 (05:04→22:25)
[2016-06-20] MEDS: LANSOPRAZOLE 30 MG TAB.RAP.DR PO SCH ×2 (05:04→16:26)
[2016-06-20] MEDS: AZTREONAM 1 GM in DEXTROSE 5%-WATER 50 ML IV SCH ×2 (05:04→22:26)
[2016-06-20 05:42] LABS: WHITE BLOOD COUNT 32.5 10^3/uL (4.0-10.5)
[2016-06-20 05:44] LABS: BASOPHILS % (MANUAL) 0 % (0-2); EOSINOPHILS % (MANUAL) 0 % (0-6); LYMPHOCYTES % (MANUAL) 5 % (13-45); TOTAL CELLS COUNTED 100
[2016-06-20 05:45] LABS: ANISOCYTOSIS SLIGHT; BURR CELLS SLIGHT; OVALOCYTES SLIGHT; TEAR DROP CELLS SLIGHT; TOXIC VACUOLATION PRESENT
[2016-06-20] MEDS ORDERED: VANCOMYCIN HCL 1,000 MG in DEXTROSE 5%-WATER 250 ML IV ONE (05:47)
[2016-06-20] MEDS ORDERED: VANCOMYCIN HCL 0 MG in DEXTROSE 5%-WATER 250 ML IV NR (06:00)
[2016-06-20] MEDS ORDERED: VANCOMYCIN HCL INJ 1000 MG VIAL ONE (06:32)
[2016-06-20 07:30] LABS: ANION GAP 15 (5-19); BLOOD UREA NITROGEN 54 mg/dL (7-20); CALCIUM 8.6 mg/dL (8.4-10.2); CARBON DIOXIDE 22 mmol/L (22-30); CHLORIDE 108 mmol/L (98-107); CREATININE RESULT 1.33 mg/dL (0.52-1.25); GLUCOSE 216 mg/dL (75-110)
[2016-06-20 07:44] LABS: POTASSIUM 4.5 mmol/L (3.6-5.0)
[2016-06-20] MEDS: IPRATROPIUM/ALBUTEROL 0.5-2.5 MG/3 ML AMPUL NEB SCH ×3 (08:01→20:14)
[2016-06-20] MEDS: HEPARIN SOD (PORCINE) 5,000 UNIT/ML 1 ML SYRINGE SUBCUT SCH ×2 (09:21→22:26)
[2016-06-20] MEDS: INSULIN LISPRO 100 UNIT/ML 3 ML VIAL SUBCUT PRN ×3 (09:21→16:27)
[2016-06-20] MEDS: FUROSEMIDE INJ/PF 40 MG/4 ML SDV IV SCH ×2 (09:21→22:26)
[2016-06-20] MEDS: VERAPAMIL HCL 240 MG TABLET.SA PO SCH ×2 (09:22→22:26)
[2016-06-20] MEDS: AZITHROMYCIN 250 MG TABLET PO SCH (09:22)
[2016-06-20] MEDS: THEOPHYLLINE ANHYDROUS 300 MG TAB.SR.12H PO SCH (09:23)
--- NOTE | 2016-06-20 10:59 | PDOC PROGRESS REPORT ---
Subjective Progress Note for:: 06/20/16 Subjective:: Patient can use to be short of breath. Chest x-ray done yesterday shows worsening of his pneumonia.. He is wearing the BiPAP. Physical Exam Vital Signs: Temp Pulse Resp BP Pulse Ox 98.0 F 68 16 128/58 H 98 06/20/16 07:26 06/20/16 08:01 06/20/16 08:01 06/20/16 07:26 06/20/16 07:26 Intake & Output 06/19/16 06/20/16 06/21/16 06:59 06:59 06:59 Intake Total 1878 850 Output Total 1055 3050 125 Balance 823 -2200 -125 Weight 65.4 kg 62.8 kg General appearance: PRESENT: mild distress Eye exam: PRESENT: conjunctiva pink. ABSENT: scleral icterus Mouth exam: PRESENT: moist, tongue midline Neck exam: ABSENT: JVD Respiratory exam: PRESENT: rales - Bibasilar respiratory rales., wheezes - Bilateral expiratory wheezes.. ABSENT: rhonchi Cardiovascular exam: PRESENT: irregular rhythm, tachycardia. ABSENT: diastolic murmur, rubs, systolic murmur GI/Abdominal exam: PRESENT: normal bowel sounds, soft. ABSENT: distended, guarding, mass, organolmegaly, rebound, tenderness Extremities exam: ABSENT: calf tenderness, clubbing, pedal edema Neurological exam: PRESENT: alert, awake, oriented to person, oriented to place , oriented to time, oriented to situation, CN II-XII grossly intact. ABSENT: motor sensory deficit Psychiatric exam: PRESENT: appropriate affect Skin exam: PRESENT: dry, intact, warm. ABSENT: cyanosis, rash Results Laboratory Results: 06/20/16 04:27 06/20/16 06:48 06/19/16 06/20/16 06/20/16 13:15 04:27 06:48 WBC 32.5 H* RBC 3.73 L Hgb 10.5 L Hct 33.1 L MCV 89 MCH 28.3 MCHC 31.8 L RDW 14.5 H Plt Count 240 Seg Neutrophils % Not Reportable Lymphocytes % Not Reportable Monocytes % Not Reportable Eosinophils % Not Reportable Basophils % Not Reportable Absolute Neutrophils Not Reportable Absolute Lymphocytes Not Reportable Absolute Monocytes Not Reportable Absolute Eosinophils Not Reportable Absolute Basophils Not Reportable Sodium 146.4 H 145.0 Potassium 5.7 H D 4.5 D Chloride 114 H 108 H Carbon Dioxide 19 L 22 Anion Gap 13 15 BUN 52 H 54 H Creatinine 1.17 1.33 H Est GFR ( Amer) > 60 > 60 Est GFR (Non-Af Amer) 59 L 51 L Glucose 196 H 216 H Calcium 9.4 8.6 Impressions: Chest X-Ray 06/19/16 00:00 IMPRESSION: Bilateral opacities-effusion. Differential diagnosis includes multifocal pneumonia, pulmonary edema, and neoplasm. Assessment & Plan - Diagnosis (1) Acute and chronic respiratory failure Qualifiers: Respiratory failure complication: unspecified whether with hypoxia or hypercapnia Qualified Code(s): J96.20 - Acute and chronic respiratory failure, unspecified whether with hypoxia or hypercapnia Is this a current diagnosis for this admission?: YesPlan: This is secondary to a combination of pneumonia and acute COPD exacerbation as well as congestive heart failure also contributing. The patient has clinically worsened. His white blood cell count has increased in his chest x-ray has worsened. The patient had vancomycin added on this morning. If the patient does not improve after the vancomycin has been added on, consideration of comfort care will be addressed with the patient and family. (2) COPD exacerbation Is this a current diagnosis for this admission?: YesPlan: Continue with Solu-Medrol and nebulizers. The vancomycin has been added on as per above. (3) LLL pneumonia Qualifiers: Pneumonia type: due to unspecified organism Qualified Code(s): J18.1 - Lobar pneumonia, unspecified organism Is this a current diagnosis for this admission?: YesPlan: Continue with Zithromax, aztreonam and vancomycin has been added on. His white blood cell count has increased. His pneumonia is worsening on chest x-ray (4) Acute diastolic CHF (congestive heart failure), NYHA class 4 Is this a current diagnosis for this admission?: YesPlan: Patient is still having shortness of breath and we will give IV Lasix. (5) Chronic renal disease, stage 4, severely decreased glomerular filtration rate (GFR) between 15-29 mL/min/1.73 square meter Is this a current diagnosis for this admission?: YesPlan: Creatinine has increased slightly. (6) Diabetes mellitus Is this a current diagnosis for this admission?: YesPlan: Continue with Lantus and sliding scale insulin. Sugars have ranged from 194-285 (7) Anemia Is this a current diagnosis for this admission?: YesPlan: Anemia of chronic disease. Hemoglobin is stable. (8) HLD (hyperlipidemia) Qualifiers: Hyperlipidemia type: unspecified Qualified Code(s): E78.5 - Hyperlipidemia, unspecified Is this a current diagnosis for this admission?: Yes (9) HTN (hypertension) Qualifiers: Hypertension type: essential hypertension Qualified Code(s): I10 - Essential (primary) hypertension Is this a current diagnosis for this admission?: YesPlan: Continue with verapamil (10) DNR (do not resuscitate) Is this a current diagnosis for this admission?: Yes - Time Time Spent with patient: 25-34 minutes - Inpatient Certification Medical Necessity: Need Close Monitoring Due to Risk of Patient Decompensation
[2016-06-20 13:32] LABS: PATH REVIEW PATHOLOGIST REVIEWED
[2016-06-20] MEDS: INSULIN GLARGINE,HUM.REC.ANLOG 300 UNIT/3 ML INSULN.PEN SUBCUT SCH (22:26)
[2016-06-21] MEDS: AZTREONAM 1 GM in DEXTROSE 5%-WATER 50 ML IV SCH (05:17)
[2016-06-21] MEDS: LANSOPRAZOLE 30 MG TAB.RAP.DR PO SCH ×2 (05:18→16:12)
[2016-06-21] MEDS: METHYLPREDNISOLONE INJ 125 MG/2 ML SDV IV SCH ×3 (05:18→22:18)
[2016-06-21] MEDS: VANCOMYCIN HCL 750 MG in DEXTROSE 5%-WATER 250 ML IV SCH (06:36)
[2016-06-21 07:05] LABS: HEMATOCRIT 31.7 % (37.9-51.0); HEMOGLOBIN 10.4 g/dL (13.5-17.0); HGB HCT DIFFERENCE -0.5; MEAN CORPUSCULAR HEMOGLOBIN 28.6 pg (27.0-33.4); MEAN CORPUSCULAR HGB CONC 32.9 g/dL (32.0-36.0); MEAN CORPUSCULAR VOLUME 87 fl (80-97); RED BLOOD COUNT 3.64 10^6/uL (4.35-5.55); RED CELL DISTRIBUTION WIDTH 14.5 % (11.5-14.0); WHITE BLOOD COUNT 25.1 10^3/uL (4.0-10.5)
[2016-06-21 07:25] LABS: BASOPHILS % (MANUAL) 0 % (0-2); EOSINOPHILS % (MANUAL) 0 % (0-6); LYMPHOCYTES % (MANUAL) 7 % (13-45); TOTAL CELLS COUNTED 100
[2016-06-21 07:26] LABS: RBC MORPHOLOGY COMMENT NORMO-CYTIC/CHROMIC; TOXIC GRANULATION SLIGHT
[2016-06-21 07:32] LABS: ANION GAP 13 (5-19); BLOOD UREA NITROGEN 69 mg/dL (7-20); CALCIUM 8.5 mg/dL (8.4-10.2); CARBON DIOXIDE 24 mmol/L (22-30); CHLORIDE 105 mmol/L (98-107); CREATININE RESULT 1.54 mg/dL (0.52-1.25); GLUCOSE 233 mg/dL (75-110); SODIUM 141.7 mmol/L (137-145)
[2016-06-21] MEDS: IPRATROPIUM/ALBUTEROL 0.5-2.5 MG/3 ML AMPUL NEB SCH ×3 (08:25→20:08)
[2016-06-21] MEDS: INSULIN LISPRO 100 UNIT/ML 3 ML VIAL SUBCUT PRN ×4 (08:54→22:58)
[2016-06-21] MEDS: HEPARIN SOD (PORCINE) 5,000 UNIT/ML 1 ML SYRINGE SUBCUT SCH ×2 (09:20→22:18)
[2016-06-21] MEDS: AZITHROMYCIN 250 MG TABLET PO SCH (09:21)
[2016-06-21] MEDS: FUROSEMIDE INJ/PF 40 MG/4 ML SDV IV SCH ×2 (09:22→22:18)
[2016-06-21] MEDS: VERAPAMIL HCL 240 MG TABLET.SA PO SCH ×2 (09:22→22:18)
[2016-06-21] MEDS: THEOPHYLLINE ANHYDROUS 300 MG TAB.SR.12H PO SCH (09:23)
--- NOTE | 2016-06-21 12:02 | PDOC PROGRESS REPORT ---
Subjective Progress Note for:: 06/21/16 Subjective:: Patient complains of shortness of breath but reports is slightly better than yesterday. Physical Exam Vital Signs: Temp Pulse Resp BP Pulse Ox 97.4 F 79 16 153/64 H 100 06/21/16 08:16 06/21/16 08:25 06/21/16 08:25 06/21/16 08:16 06/21/16 08:16 Intake & Output 06/20/16 06/21/16 06/22/16 06:59 06:59 06:59 Intake Total 850 1528 250 Output Total 3050 1925 Balance -2200 -397 250 Weight 62.8 kg 64.5 kg General appearance: PRESENT: no acute distress Eye exam: PRESENT: conjunctiva pink. ABSENT: scleral icterus Mouth exam: PRESENT: moist, tongue midline Neck exam: ABSENT: JVD Respiratory exam: PRESENT: rales - Bibasilar, rhonchi - Coarse rhonchi in all hannon, wheezes - Extremities bilaterally Cardiovascular exam: PRESENT: irregular rhythm. ABSENT: diastolic murmur, rubs , systolic murmur GI/Abdominal exam: PRESENT: normal bowel sounds, soft. ABSENT: distended, guarding, mass, organolmegaly, rebound, tenderness Extremities exam: ABSENT: calf tenderness, clubbing, pedal edema Neurological exam: PRESENT: alert, awake, oriented to person, oriented to place , oriented to time, oriented to situation, CN II-XII grossly intact. ABSENT: motor sensory deficit Psychiatric exam: PRESENT: appropriate affect Skin exam: PRESENT: dry, intact, warm. ABSENT: cyanosis, rash Results Laboratory Results: 06/21/16 06:41 06/21/16 06:41 06/20/16 06/21/16 06/21/16 04:27 06:41 06:41 WBC 32.5 H* 25.1 H RBC 3.73 L 3.64 L Hgb 10.5 L 10.4 L Hct 33.1 L 31.7 L MCV 89 87 MCH 28.3 28.6 MCHC 31.8 L 32.9 RDW 14.5 H 14.5 H Plt Count 240 233 Seg Neutrophils % Not Reportable Lymphocytes % Not Reportable Monocytes % Not Reportable Eosinophils % Not Reportable Basophils % Not Reportable Absolute Neutrophils Not Reportable Absolute Lymphocytes Not Reportable Absolute Monocytes Not Reportable Absolute Eosinophils Not Reportable Absolute Basophils Not Reportable Sodium 141.7 Potassium 4.0 Chloride 105 Carbon Dioxide 24 Anion Gap 13 BUN 69 H Creatinine 1.54 H Est GFR ( Amer) 52 L Est GFR (Non-Af Amer) 43 L Glucose 233 H Calcium 8.5 Impressions: Chest X-Ray 06/19/16 00:00 IMPRESSION: Bilateral opacities-effusion. Differential diagnosis includes multifocal pneumonia, pulmonary edema, and neoplasm. Assessment & Plan - Diagnosis (1) Acute and chronic respiratory failure Qualifiers: Respiratory failure complication: unspecified whether with hypoxia or hypercapnia Qualified Code(s): J96.20 - Acute and chronic respiratory failure, unspecified whether with hypoxia or hypercapnia Is this a current diagnosis for this admission?: YesPlan: This is secondary to a combination of pneumonia and acute COPD exacerbation as well as congestive heart failure also contributing. The patient had vancomycin added on yesterday and appears to be improving. We'll continue BiPAP as needed as well as nebulizers and oxygen. (2) COPD exacerbation Is this a current diagnosis for this admission?: YesPlan: Continue with Solu-Medrol and nebulizers. The vancomycin has been added on as per above. (3) LLL pneumonia Qualifiers: Pneumonia type: due to unspecified organism Qualified Code(s): J18.1 - Lobar pneumonia, unspecified organism Is this a current diagnosis for this admission?: YesPlan: Continue with Zithromax, aztreonam and vancomycin has been added on. His white blood cell count has improved. (4) Acute diastolic CHF (congestive heart failure), NYHA class 4 Is this a current diagnosis for this admission?: YesPlan: Patient is still having shortness of breath. (5) Chronic renal disease, stage 4, severely decreased glomerular filtration rate (GFR) between 15-29 mL/min/1.73 square meter Is this a current diagnosis for this admission?: YesPlan: Creatinine has increased slightly. (6) Diabetes mellitus Is this a current diagnosis for this admission?: YesPlan: Continue with Lantus and sliding scale insulin. Sugars have ranged from 163-347 (7) Anemia Is this a current diagnosis for this admission?: YesPlan: Anemia of chronic disease. Hemoglobin is stable. (8) HLD (hyperlipidemia) Qualifiers: Hyperlipidemia type: unspecified Qualified Code(s): E78.5 - Hyperlipidemia, unspecified Is this a current diagnosis for this admission?: Yes (9) HTN (hypertension) Qualifiers: Hypertension type: essential hypertension Qualified Code(s): I10 - Essential (primary) hypertension Is this a current diagnosis for this admission?: YesPlan: Continue with verapamil (10) DNR (do not resuscitate) Is this a current diagnosis for this admission?: Yes - Time Time Spent with patient: 25-34 minutes - Inpatient Certification Medical Necessity: Need Close Monitoring Due to Risk of Patient Decompensation
[2016-06-21] MEDS: AZTREONAM 1 GM in DEXTROSE 5%-WATER 100 ML IV SCH (22:17)
[2016-06-21] MEDS: INSULIN GLARGINE,HUM.REC.ANLOG 300 UNIT/3 ML INSULN.PEN SUBCUT SCH (22:58)
[2016-06-22 05:08] LABS: HEMATOCRIT 31.1 % (37.9-51.0); HEMOGLOBIN 10.1 g/dL (13.5-17.0); HGB HCT DIFFERENCE -0.8; MEAN CORPUSCULAR HEMOGLOBIN 28.6 pg (27.0-33.4); MEAN CORPUSCULAR HGB CONC 32.5 g/dL (32.0-36.0); MEAN CORPUSCULAR VOLUME 88 fl (80-97); RED BLOOD COUNT 3.53 10^6/uL (4.35-5.55); RED CELL DISTRIBUTION WIDTH 14.4 % (11.5-14.0); WHITE BLOOD COUNT 24.5 10^3/uL (4.0-10.5)
[2016-06-22 05:22] LABS: ANION GAP 14 (5-19); BLOOD UREA NITROGEN 71 mg/dL (7-20); CARBON DIOXIDE 24 mmol/L (22-30); CHLORIDE 102 mmol/L (98-107); CREATININE RESULT 1.64 mg/dL (0.52-1.25); GLUCOSE 200 mg/dL (75-110); POTASSIUM 3.7 mmol/L (3.6-5.0); SODIUM 139.7 mmol/L (137-145)
[2016-06-22 05:53] LABS: BASOPHILS % (MANUAL) 0 % (0-2); EOSINOPHILS % (MANUAL) 0 % (0-6); LYMPHOCYTES % (MANUAL) 11 % (13-45); TOTAL CELLS COUNTED 100
[2016-06-22 05:55] LABS: ANISOCYTOSIS SLIGHT; OVALOCYTES SLIGHT; TEAR DROP CELLS SLIGHT; TOXIC VACUOLATION PRESENT
[2016-06-22] MEDS: AZTREONAM 1 GM in DEXTROSE 5%-WATER 100 ML IV SCH ×3 (05:59→21:48)
[2016-06-22] MEDS: VANCOMYCIN HCL 750 MG in DEXTROSE 5%-WATER 250 ML IV SCH (05:59)
[2016-06-22] MEDS: LANSOPRAZOLE 30 MG TAB.RAP.DR PO SCH ×2 (06:00→17:10)
[2016-06-22] MEDS: METHYLPREDNISOLONE INJ 125 MG/2 ML SDV IV SCH ×3 (06:00→21:54)
[2016-06-22] MEDS: IPRATROPIUM/ALBUTEROL 0.5-2.5 MG/3 ML AMPUL NEB SCH ×3 (08:24→20:50)
[2016-06-22] MEDS: INSULIN LISPRO 100 UNIT/ML 3 ML VIAL SUBCUT PRN ×4 (08:51→21:59)
[2016-06-22] MEDS: HEPARIN SOD (PORCINE) 5,000 UNIT/ML 1 ML SYRINGE SUBCUT SCH ×2 (09:47→21:52)
[2016-06-22] MEDS: FUROSEMIDE INJ/PF 40 MG/4 ML SDV IV SCH ×2 (09:48→21:53)
[2016-06-22] MEDS: THEOPHYLLINE ANHYDROUS 300 MG TAB.SR.12H PO SCH (09:49)
[2016-06-22] MEDS: VERAPAMIL HCL 240 MG TABLET.SA PO SCH ×2 (09:49→22:30)
[2016-06-22] MEDS: AZITHROMYCIN 250 MG TABLET PO SCH (09:49)
--- NOTE | 2016-06-22 10:08 | PDOC PROGRESS REPORT ---
Subjective Progress Note for:: 06/22/16 Subjective:: Patient complains of shortness of breath Physical Exam Vital Signs: Temp Pulse Resp BP Pulse Ox 98.0 F 68 22 H 136/48 H 94 06/22/16 06:59 06/22/16 08:24 06/22/16 08:24 06/22/16 06:59 06/22/16 08:24 Intake & Output 06/21/16 06/22/16 06/23/16 06:59 06:59 06:59 Intake Total 1528 1577 Output Total 1925 1375 Balance -397 202 Weight 64.5 kg 61.6 kg General appearance: PRESENT: no acute distress Eye exam: PRESENT: conjunctiva pink. ABSENT: scleral icterus Mouth exam: PRESENT: moist, tongue midline Neck exam: ABSENT: JVD Respiratory exam: PRESENT: rales - Bibasilar, wheezes - Scattered expiratory wheezes. ABSENT: rhonchi Cardiovascular exam: PRESENT: RRR. ABSENT: diastolic murmur, rubs, systolic murmur GI/Abdominal exam: PRESENT: normal bowel sounds, soft. ABSENT: distended, guarding, mass, organolmegaly, rebound, tenderness Extremities exam: ABSENT: calf tenderness, clubbing, pedal edema Neurological exam: PRESENT: alert, awake, oriented to person, oriented to place , oriented to time, oriented to situation, CN II-XII grossly intact. ABSENT: motor sensory deficit Psychiatric exam: PRESENT: appropriate affect Skin exam: PRESENT: dry, intact, warm. ABSENT: cyanosis, rash Results Laboratory Results: 06/22/16 04:47 06/22/16 04:47 06/22/16 06/22/16 04:47 04:47 WBC 24.5 H RBC 3.53 L Hgb 10.1 L Hct 31.1 L MCV 88 MCH 28.6 MCHC 32.5 RDW 14.4 H Plt Count 195 Seg Neutrophils % Not Reportable Lymphocytes % Not Reportable Monocytes % Not Reportable Eosinophils % Not Reportable Basophils % Not Reportable Absolute Neutrophils Not Reportable Absolute Lymphocytes Not Reportable Absolute Monocytes Not Reportable Absolute Eosinophils Not Reportable Absolute Basophils Not Reportable Sodium 139.7 Potassium 3.7 Chloride 102 Carbon Dioxide 24 Anion Gap 14 BUN 71 H Creatinine 1.64 H Est GFR ( Amer) 49 L Est GFR (Non-Af Amer) 40 L Glucose 200 H Calcium 8.0 L Impressions: Chest X-Ray 06/19/16 00:00 IMPRESSION: Bilateral opacities-effusion. Differential diagnosis includes multifocal pneumonia, pulmonary edema, and neoplasm. Assessment & Plan - Diagnosis (1) Acute and chronic respiratory failure Qualifiers: Respiratory failure complication: unspecified whether with hypoxia or hypercapnia Qualified Code(s): J96.20 - Acute and chronic respiratory failure, unspecified whether with hypoxia or hypercapnia Is this a current diagnosis for this admission?: YesPlan: This is secondary to a combination of pneumonia and acute COPD exacerbation as well as congestive heart failure also contributing. The patient appears to be improving. We'll continue BiPAP as needed as well as nebulizers, antibiotics, and oxygen. (2) COPD exacerbation Is this a current diagnosis for this admission?: YesPlan: Continue with Solu-Medrol and nebulizers. (3) LLL pneumonia Qualifiers: Pneumonia type: due to unspecified organism Qualified Code(s): J18.1 - Lobar pneumonia, unspecified organism Is this a current diagnosis for this admission?: YesPlan: Continue with Zithromax, aztreonam and vancomycin. His white blood cell count has improved. (4) Acute diastolic CHF (congestive heart failure), NYHA class 4 Is this a current diagnosis for this admission?: YesPlan: Patient is still having shortness of breath. (5) Chronic renal disease, stage 4, severely decreased glomerular filtration rate (GFR) between 15-29 mL/min/1.73 square meter Is this a current diagnosis for this admission?: YesPlan: Stable. (6) Diabetes mellitus Is this a current diagnosis for this admission?: YesPlan: Continue with Lantus and sliding scale insulin. Sugars have ranged from 196-347 (7) Anemia Is this a current diagnosis for this admission?: YesPlan: Anemia of chronic disease. Hemoglobin is stable. (8) HLD (hyperlipidemia) Qualifiers: Hyperlipidemia type: unspecified Qualified Code(s): E78.5 - Hyperlipidemia, unspecified Is this a current diagnosis for this admission?: Yes (9) HTN (hypertension) Qualifiers: Hypertension type: essential hypertension Qualified Code(s): I10 - Essential (primary) hypertension Is this a current diagnosis for this admission?: YesPlan: Continue with verapamil (10) DNR (do not resuscitate) Is this a current diagnosis for this admission?: Yes - Time Time Spent with patient: 25-34 minutes - Inpatient Certification Medical Necessity: Need for IV Antibiotics
[2016-06-22] MEDS: INSULIN GLARGINE,HUM.REC.ANLOG 300 UNIT/3 ML INSULN.PEN SUBCUT SCH (22:00)
[2016-06-23] MEDS: LANSOPRAZOLE 30 MG TAB.RAP.DR PO SCH ×2 (05:42→16:12)
[2016-06-23] MEDS: AZTREONAM 1 GM in DEXTROSE 5%-WATER 100 ML IV SCH ×3 (05:43→22:47)
[2016-06-23] MEDS: METHYLPREDNISOLONE INJ 125 MG/2 ML SDV IV SCH ×3 (05:43→22:40)
[2016-06-23 06:50] LABS: HEMATOCRIT 29.6 % (37.9-51.0); HEMOGLOBIN 9.8 g/dL (13.5-17.0); HGB HCT DIFFERENCE -0.2; MEAN CORPUSCULAR HEMOGLOBIN 28.7 pg (27.0-33.4); MEAN CORPUSCULAR HGB CONC 33.2 g/dL (32.0-36.0); MEAN CORPUSCULAR VOLUME 86 fl (80-97); RED BLOOD COUNT 3.43 10^6/uL (4.35-5.55); RED CELL DISTRIBUTION WIDTH 14.6 % (11.5-14.0); WHITE BLOOD COUNT 20.1 10^3/uL (4.0-10.5)
[2016-06-23 06:53] LABS: ANION GAP 12 (5-19); BLOOD UREA NITROGEN 72 mg/dL (7-20); CALCIUM 7.7 mg/dL (8.4-10.2); CARBON DIOXIDE 26 mmol/L (22-30); CHLORIDE 99 mmol/L (98-107); CREATININE RESULT 1.55 mg/dL (0.52-1.25); GLUCOSE 212 mg/dL (75-110); POTASSIUM 3.5 mmol/L (3.6-5.0)
[2016-06-23 07:17] LABS: BASOPHILS % (MANUAL) 0 % (0-2); EOSINOPHILS % (MANUAL) 1 % (0-6); LYMPHOCYTES % (MANUAL) 5 % (13-45); TOTAL CELLS COUNTED 100
[2016-06-23 07:18] LABS: ANISOCYTOSIS SLIGHT; BURR CELLS SLIGHT; OVALOCYTES SLIGHT; POIKILOCYTOSIS SLIGHT; SCHISTOCYTES SLIGHT; TEAR DROP CELLS SLIGHT; TOXIC GRANULATION SLIGHT; TOXIC VACUOLATION PRESENT
[2016-06-23] MEDS: VANCOMYCIN HCL 750 MG in DEXTROSE 5%-WATER 250 ML IV SCH (08:07)
[2016-06-23] MEDS: INSULIN LISPRO 100 UNIT/ML 3 ML VIAL SUBCUT PRN ×4 (08:12→22:38)
[2016-06-23] MEDS: IPRATROPIUM/ALBUTEROL 0.5-2.5 MG/3 ML AMPUL NEB SCH ×3 (08:17→20:21)
[2016-06-23] MEDS: HEPARIN SOD (PORCINE) 5,000 UNIT/ML 1 ML SYRINGE SUBCUT SCH ×2 (10:06→22:38)
[2016-06-23] MEDS: VERAPAMIL HCL 240 MG TABLET.SA PO SCH ×2 (10:07→22:39)
[2016-06-23] MEDS: AZITHROMYCIN 250 MG TABLET PO SCH (10:07)
[2016-06-23] MEDS: FUROSEMIDE INJ/PF 40 MG/4 ML SDV IV SCH ×2 (10:07→22:39)
[2016-06-23] MEDS: THEOPHYLLINE ANHYDROUS 300 MG TAB.SR.12H PO SCH (10:09)
--- NOTE | 2016-06-23 11:28 | PDOC PROGRESS REPORT ---
Subjective Progress Note for:: 06/23/16 Subjective:: Patient complains of shortness of breath. He is somewhat improved however. Physical Exam Vital Signs: Temp Pulse Resp BP Pulse Ox 97.8 F 80 20 162/48 H 95 06/23/16 08:34 06/23/16 08:34 06/23/16 08:34 06/23/16 08:34 06/23/16 08:34 Intake & Output 06/22/16 06/23/16 06/24/16 06:59 06:59 06:59 Intake Total 1577 1280 Output Total 1375 1425 Balance 202 -145 Weight 61.6 kg 61.7 kg General appearance: PRESENT: no acute distress Eye exam: PRESENT: conjunctiva pink. ABSENT: scleral icterus Mouth exam: PRESENT: moist, tongue midline Neck exam: ABSENT: JVD Respiratory exam: PRESENT: rales - Bilateral rales. ABSENT: rhonchi, wheezes Cardiovascular exam: PRESENT: RRR. ABSENT: diastolic murmur, rubs, systolic murmur GI/Abdominal exam: PRESENT: normal bowel sounds, soft. ABSENT: distended, guarding, mass, organolmegaly, rebound, tenderness Extremities exam: ABSENT: calf tenderness, clubbing, pedal edema Neurological exam: PRESENT: alert, awake, oriented to person, oriented to place , oriented to time, oriented to situation, CN II-XII grossly intact. ABSENT: motor sensory deficit Psychiatric exam: PRESENT: appropriate affect Skin exam: PRESENT: dry, intact, warm. ABSENT: cyanosis, rash Results Laboratory Results: 06/23/16 05:52 06/23/16 05:53 06/23/16 06/23/16 05:52 05:53 WBC 20.1 H RBC 3.43 L Hgb 9.8 L Hct 29.6 L MCV 86 MCH 28.7 MCHC 33.2 RDW 14.6 H Plt Count 159 Seg Neutrophils % Not Reportable Lymphocytes % Not Reportable Monocytes % Not Reportable Eosinophils % Not Reportable Basophils % Not Reportable Absolute Neutrophils Not Reportable Absolute Lymphocytes Not Reportable Absolute Monocytes Not Reportable Absolute Eosinophils Not Reportable Absolute Basophils Not Reportable Sodium 137.0 Potassium 3.5 L Chloride 99 Carbon Dioxide 26 Anion Gap 12 BUN 72 H Creatinine 1.55 H Est GFR ( Amer) 52 L Est GFR (Non-Af Amer) 43 L Glucose 212 H Calcium 7.7 L Impressions: Chest X-Ray 06/19/16 00:00 IMPRESSION: Bilateral opacities-effusion. Differential diagnosis includes multifocal pneumonia, pulmonary edema, and neoplasm. Assessment & Plan - Diagnosis (1) Acute and chronic respiratory failure Qualifiers: Respiratory failure complication: unspecified whether with hypoxia or hypercapnia Qualified Code(s): J96.20 - Acute and chronic respiratory failure, unspecified whether with hypoxia or hypercapnia Is this a current diagnosis for this admission?: YesPlan: This is secondary to a combination of pneumonia and acute COPD exacerbation as well as congestive heart failure also contributing. The patient appears to be improving. We'll continue BiPAP as needed as well as nebulizers, antibiotics, and oxygen. (2) COPD exacerbation Is this a current diagnosis for this admission?: YesPlan: Continue with Solu-Medrol and nebulizers. (3) LLL pneumonia Qualifiers: Pneumonia type: due to unspecified organism Qualified Code(s): J18.1 - Lobar pneumonia, unspecified organism Is this a current diagnosis for this admission?: YesPlan: Continue with Zithromax, aztreonam and vancomycin. His white blood cell count has improved. (4) Acute diastolic CHF (congestive heart failure), NYHA class 4 Is this a current diagnosis for this admission?: YesPlan: Patient is still having shortness of breath. (5) Chronic renal disease, stage 4, severely decreased glomerular filtration rate (GFR) between 15-29 mL/min/1.73 square meter Is this a current diagnosis for this admission?: YesPlan: Stable. (6) Diabetes mellitus Is this a current diagnosis for this admission?: YesPlan: Continue with Lantus and sliding scale insulin. Sugars have ranged from 181-411 (7) Anemia Is this a current diagnosis for this admission?: YesPlan: Anemia of chronic disease. Hemoglobin is stable. (8) HLD (hyperlipidemia) Qualifiers: Hyperlipidemia type: unspecified Qualified Code(s): E78.5 - Hyperlipidemia, unspecified Is this a current diagnosis for this admission?: Yes (9) HTN (hypertension) Qualifiers: Hypertension type: essential hypertension Qualified Code(s): I10 - Essential (primary) hypertension Is this a current diagnosis for this admission?: YesPlan: Continue with verapamil (10) DNR (do not resuscitate) Is this a current diagnosis for this admission?: Yes - Time Time Spent with patient: 25-34 minutes - Inpatient Certification Medical Necessity: Need for IV Antibiotics
[2016-06-23] MEDS: INSULIN GLARGINE,HUM.REC.ANLOG 300 UNIT/3 ML INSULN.PEN SUBCUT SCH (22:39)
[2016-06-24] MEDS: METHYLPREDNISOLONE INJ 125 MG/2 ML SDV IV SCH (06:01)
[2016-06-24] MEDS: LANSOPRAZOLE 30 MG TAB.RAP.DR PO SCH ×2 (06:01→16:36)
[2016-06-24] MEDS: VANCOMYCIN HCL 750 MG in DEXTROSE 5%-WATER 250 ML IV SCH (06:01)
[2016-06-24] MEDS: AZTREONAM 1 GM in DEXTROSE 5%-WATER 100 ML IV SCH ×3 (06:01→22:54)
[2016-06-24 07:09] LABS: HEMATOCRIT 33.9 % (37.9-51.0); HEMOGLOBIN 11.1 g/dL (13.5-17.0); HGB HCT DIFFERENCE -0.6; MEAN CORPUSCULAR HEMOGLOBIN 28.5 pg (27.0-33.4); MEAN CORPUSCULAR HGB CONC 32.8 g/dL (32.0-36.0); MEAN CORPUSCULAR VOLUME 87 fl (80-97); RED BLOOD COUNT 3.89 10^6/uL (4.35-5.55); RED CELL DISTRIBUTION WIDTH 14.4 % (11.5-14.0); WHITE BLOOD COUNT 15.6 10^3/uL (4.0-10.5)
[2016-06-24 07:18] LABS: ANION GAP 12 (5-19); BLOOD UREA NITROGEN 73 mg/dL (7-20); CARBON DIOXIDE 27 mmol/L (22-30); CHLORIDE 98 mmol/L (98-107); CREATININE RESULT 1.68 mg/dL (0.52-1.25); GLUCOSE 243 mg/dL (75-110); POTASSIUM 3.4 mmol/L (3.6-5.0)
[2016-06-24 07:49] LABS: BASOPHILS % (MANUAL) 0 % (0-2); EOSINOPHILS % (MANUAL) 0 % (0-6); LYMPHOCYTES % (MANUAL) 4 % (13-45); TOTAL CELLS COUNTED 100
[2016-06-24 07:50] LABS: ANISOCYTOSIS SLIGHT; OVALOCYTES SLIGHT; POIKILOCYTOSIS SLIGHT; TEAR DROP CELLS SLIGHT
[2016-06-24] MEDS: INSULIN LISPRO 100 UNIT/ML 3 ML VIAL SUBCUT PRN ×4 (07:56→23:02)
[2016-06-24] MEDS: IPRATROPIUM/ALBUTEROL 0.5-2.5 MG/3 ML AMPUL NEB SCH ×3 (08:10→19:52)
[2016-06-24] MEDS: FUROSEMIDE INJ/PF 40 MG/4 ML SDV IV SCH ×2 (10:04→22:49)
[2016-06-24] MEDS: VERAPAMIL HCL 240 MG TABLET.SA PO SCH ×2 (10:04→22:50)
[2016-06-24] MEDS: THEOPHYLLINE ANHYDROUS 300 MG TAB.SR.12H PO SCH (10:05)
[2016-06-24] MEDS: HEPARIN SOD (PORCINE) 5,000 UNIT/ML 1 ML SYRINGE SUBCUT SCH ×2 (10:05→22:50)
[2016-06-24] MEDS ORDERED: POTASSIUM CHLORIDE 10 MEQ TABLET.SA PO ONE (12:03)
--- NOTE | 2016-06-24 12:14 | PDOC PROGRESS REPORT ---
Subjective Progress Note for:: 06/24/16 Subjective:: Patient reports that he is improving. Shortness of breath is better. Denies any chills or fever or diarrhea. No respiratory distress reported. Patient is weak overall. Patient had history of choking sensation with regular consistency food which the patient blames from hiatal hernia. Patient states that he only eats soft or pured diet. Physical Exam Vital Signs: Temp Pulse Resp BP Pulse Ox 97.5 F 66 18 148/48 H 92 06/24/16 07:34 06/24/16 08:41 06/24/16 08:10 06/24/16 07:34 06/24/16 08:00 Intake & Output 06/23/16 06/24/16 06/25/16 06:59 06:59 06:59 Intake Total 1280 1735 Output Total 1425 975 Balance -145 760 Weight 61.7 kg 60.4 kg General appearance: PRESENT: no acute distress, cooperative, other - Nasal cannula oxygen Head exam: PRESENT: normocephalic Eye exam: PRESENT: EOMI Mouth exam: PRESENT: moist, neck supple Neck exam: ABSENT: JVD Respiratory exam: PRESENT: clear to auscultation jacek, rales - Lower lung hannon. ABSENT: rhonchi, wheezes Cardiovascular exam: PRESENT: RRR. ABSENT: gallop GI/Abdominal exam: PRESENT: soft. ABSENT: distended, tenderness Extremities exam: ABSENT: pedal edema Neurological exam: PRESENT: alert, awake, oriented to situation Skin exam: PRESENT: dry, warm. ABSENT: cyanosis Results Laboratory Results: 06/24/16 06:54 06/24/16 06:54 06/24/16 06/24/16 06:54 06:54 WBC 15.6 H RBC 3.89 L Hgb 11.1 L Hct 33.9 L MCV 87 MCH 28.5 MCHC 32.8 RDW 14.4 H Plt Count 161 Seg Neutrophils % Not Reportable Lymphocytes % Not Reportable Monocytes % Not Reportable Eosinophils % Not Reportable Basophils % Not Reportable Absolute Neutrophils Not Reportable Absolute Lymphocytes Not Reportable Absolute Monocytes Not Reportable Absolute Eosinophils Not Reportable Absolute Basophils Not Reportable Sodium 137.0 Potassium 3.4 L Chloride 98 Carbon Dioxide 27 Anion Gap 12 BUN 73 H Creatinine 1.68 H Est GFR ( Amer) 47 L Est GFR (Non-Af Amer) 39 L Glucose 243 H Calcium 8.0 L Impressions: Chest X-Ray 06/19/16 00:00 IMPRESSION: Bilateral opacities-effusion. Differential diagnosis includes multifocal pneumonia, pulmonary edema, and neoplasm. Assessment & Plan - Diagnosis (1) Acute and chronic respiratory failure with hypoxia Is this a current diagnosis for this admission?: Yes (2) COPD exacerbation Is this a current diagnosis for this admission?: Yes (3) LLL pneumonia Qualifiers: Pneumonia type: due to unspecified organism Qualified Code(s): J18.1 - Lobar pneumonia, unspecified organism Is this a current diagnosis for this admission?: Yes (4) Acute diastolic CHF (congestive heart failure), NYHA class 4 Is this a current diagnosis for this admission?: Yes (5) Chronic renal disease, stage 4, severely decreased glomerular filtration rate (GFR) between 15-29 mL/min/1.73 square meter Is this a current diagnosis for this admission?: Yes (6) Diabetes mellitus Qualifiers: Diabetes mellitus type: type 2 Diabetes mellitus complication status: with unspecified complications Diabetes mellitus mcc insulin use: with mcc use Qualified Code(s): E11.8 - Type 2 diabetes mellitus with unspecified complications; Z79.4 - half-way (current) use of insulin Is this a current diagnosis for this admission?: Yes (7) Anemia Qualifiers: Anemia type: unspecified type Qualified Code(s): D64.9 - Anemia, unspecified Is this a current diagnosis for this admission?: Yes (8) HLD (hyperlipidemia) Qualifiers: Hyperlipidemia type: unspecified Qualified Code(s): E78.5 - Hyperlipidemia, unspecified Is this a current diagnosis for this admission?: Yes (9) HTN (hypertension) Qualifiers: Hypertension type: essential hypertension Qualified Code(s): I10 - Essential (primary) hypertension Is this a current diagnosis for this admission?: Yes - Time Time Spent with patient: 25-34 minutes - Plan Summary Plan Summary: Out of bed, physical therapy, replace potassium, recheck electrolytes in the morning. Continue intravenous diuretics and antibiotics for now. Discontinue Solu-Medrol. Begin prednisone. Continue other medication and supportive care.
[2016-06-24] MEDS ORDERED: PREDNISONE 20 MG TABLET PO SCH (13:00)
[2016-06-24] MEDS: INSULIN GLARGINE,HUM.REC.ANLOG 300 UNIT/3 ML INSULN.PEN SUBCUT SCH (22:51)
[2016-06-25] MEDS: AZTREONAM 1 GM in DEXTROSE 5%-WATER 100 ML IV SCH ×3 (06:18→21:37)
[2016-06-25] MEDS: VANCOMYCIN HCL 750 MG in DEXTROSE 5%-WATER 250 ML IV SCH (06:18)
[2016-06-25] MEDS: LANSOPRAZOLE 30 MG TAB.RAP.DR PO SCH ×2 (06:19→16:06)
[2016-06-25 06:20] LABS: ANION GAP 12 (5-19); BLOOD UREA NITROGEN 75 mg/dL (7-20); CALCIUM 8.3 mg/dL (8.4-10.2); CARBON DIOXIDE 29 mmol/L (22-30); CHLORIDE 98 mmol/L (98-107); CREATININE RESULT 1.69 mg/dL (0.52-1.25); GLUCOSE 199 mg/dL (75-110); POTASSIUM 3.6 mmol/L (3.6-5.0); SODIUM 138.9 mmol/L (137-145)
[2016-06-25] MEDS: INSULIN LISPRO 100 UNIT/ML 3 ML VIAL SUBCUT PRN ×4 (08:13→21:35)
[2016-06-25] MEDS: IPRATROPIUM/ALBUTEROL 0.5-2.5 MG/3 ML AMPUL NEB SCH ×3 (08:16→20:53)
[2016-06-25] MEDS: THEOPHYLLINE ANHYDROUS 300 MG TAB.SR.12H PO SCH (09:29)
[2016-06-25] MEDS: FUROSEMIDE INJ/PF 40 MG/4 ML SDV IV SCH (09:32)
[2016-06-25] MEDS: HEPARIN SOD (PORCINE) 5,000 UNIT/ML 1 ML SYRINGE SUBCUT SCH ×2 (09:32→21:35)
[2016-06-25] MEDS: VERAPAMIL HCL 240 MG TABLET.SA PO SCH ×2 (09:32→21:36)
--- NOTE | 2016-06-25 11:25 | PDOC PROGRESS REPORT ---
Subjective Progress Note for:: 06/25/16 Subjective:: Patient reports that he is improving however last night patient oxygenation titrated. Denies any chills or fever or diarrhea nor worsening respiratory discomfort. No respiratory distress reported. Patient is weak overall. Patient had history of choking sensation with regular consistency food which the patient blames from hiatal hernia. Patient states that he only eats soft or pured diet. Reportedly depressed due to passing out of his son recently. Oral intake is poor. Family at bedside. Physical Exam Vital Signs: Temp Pulse Resp BP Pulse Ox 97.6 F 74 18 173/54 H 98 06/25/16 07:47 06/25/16 08:38 06/25/16 08:16 06/25/16 07:47 06/25/16 08:16 Intake & Output 06/24/16 06/25/16 06/26/16 06:59 06:59 06:59 Intake Total 1735 1405 Output Total 975 1800 Balance 760 -395 Weight 60.4 kg 59.2 kg General appearance: PRESENT: no acute distress, cooperative, other - Nasal cannula oxygen Head exam: PRESENT: normocephalic Eye exam: PRESENT: EOMI Mouth exam: PRESENT: moist, neck supple Neck exam: ABSENT: JVD Respiratory exam: PRESENT: decreased breath sounds, rhonchi - few. ABSENT: wheezes Cardiovascular exam: PRESENT: RRR. ABSENT: gallop GI/Abdominal exam: PRESENT: soft. ABSENT: distended, tenderness Extremities exam: PRESENT: other - Trace pretibial edema Neurological exam: PRESENT: alert, awake, oriented to situation Skin exam: PRESENT: dry, warm. ABSENT: cyanosis Results Laboratory Results: 06/24/16 06:54 06/25/16 05:14 06/25/16 05:14 Sodium 138.9 Potassium 3.6 Chloride 98 Carbon Dioxide 29 Anion Gap 12 BUN 75 H Creatinine 1.69 H Est GFR ( Amer) 47 L Est GFR (Non-Af Amer) 39 L Glucose 199 H Calcium 8.3 L Impressions: Chest X-Ray 06/19/16 00:00 IMPRESSION: Bilateral opacities-effusion. Differential diagnosis includes multifocal pneumonia, pulmonary edema, and neoplasm. Assessment & Plan - Diagnosis (1) Acute and chronic respiratory failure with hypoxia Is this a current diagnosis for this admission?: Yes (2) COPD exacerbation Is this a current diagnosis for this admission?: Yes (3) LLL pneumonia Qualifiers: Pneumonia type: due to unspecified organism Qualified Code(s): J18.1 - Lobar pneumonia, unspecified organism Is this a current diagnosis for this admission?: Yes (4) Acute diastolic CHF (congestive heart failure), NYHA class 4 Is this a current diagnosis for this admission?: Yes (5) Chronic renal disease, stage 4, severely decreased glomerular filtration rate (GFR) between 15-29 mL/min/1.73 square meter Is this a current diagnosis for this admission?: Yes (6) Diabetes mellitus Qualifiers: Diabetes mellitus type: type 2 Diabetes mellitus complication status: with unspecified complications Diabetes mellitus lobsterman insulin use: with lobsterman use Qualified Code(s): E11.8 - Type 2 diabetes mellitus with unspecified complications; Z79.4 - termite control servicer (current) use of insulin Is this a current diagnosis for this admission?: Yes (7) Anemia Qualifiers: Anemia type: unspecified type Qualified Code(s): D64.9 - Anemia, unspecified Is this a current diagnosis for this admission?: Yes (8) HLD (hyperlipidemia) Qualifiers: Hyperlipidemia type: unspecified Qualified Code(s): E78.5 - Hyperlipidemia, unspecified Is this a current diagnosis for this admission?: Yes (9) HTN (hypertension) Qualifiers: Hypertension type: essential hypertension Qualified Code(s): I10 - Essential (primary) hypertension Is this a current diagnosis for this admission?: Yes - Time Time Spent with patient: 25-34 minutes - Plan Summary Plan Summary: After talking to the patient and encouraging him to increase oral fluid intake with the family at bedside, patient agreed, we will change the diet however to regular as he prefers. In the meantime we will start the patient on Zoloft, wean steroids, switched to oral diuretics. Continue physical therapy. Continue supportive care. Continue current antibiotic for now.
[2016-06-25] MEDS ORDERED: SERTRALINE HCL 50 MG TABLET PO ONE (11:30)
[2016-06-25] MEDS ORDERED: FLUTICASONE/SALMETEROL DISKUS 250-50 MCG/DOSE IH ONE (12:15)
[2016-06-25] MEDS: PREDNISONE 20 MG TABLET PO SCH (12:19)
[2016-06-25] MEDS: INSULIN GLARGINE,HUM.REC.ANLOG 300 UNIT/3 ML INSULN.PEN SUBCUT SCH (21:35)
[2016-06-25] MEDS: FLUTICASONE/SALMETEROL DISKUS 250-50 MCG/DOSE IH SCH (21:36)
[2016-06-26] MEDS: AZTREONAM 1 GM in DEXTROSE 5%-WATER 100 ML IV SCH ×3 (05:12→21:52)
[2016-06-26] MEDS: LANSOPRAZOLE 30 MG TAB.RAP.DR PO SCH ×2 (05:15→16:12)
[2016-06-26] MEDS: INSULIN LISPRO 100 UNIT/ML 3 ML VIAL SUBCUT PRN ×4 (07:34→23:46)
[2016-06-26] MEDS: IPRATROPIUM/ALBUTEROL 0.5-2.5 MG/3 ML AMPUL NEB SCH ×3 (08:11→20:13)
--- NOTE | 2016-06-26 09:21 | PDOC PROGRESS REPORT ---
Subjective Progress Note for:: 06/26/16 Subjective:: Patient reported marked congestion and wheezing today. Given nebulizers and slightly improved. No temperature spikes, nausea or vomiting, diarrhea. Oral intake slightly increased . Patient denies any pain at all. Physical Exam Vital Signs: Temp Pulse Resp BP Pulse Ox 97.8 F 72 16 156/48 H 94 06/26/16 07:31 06/26/16 08:27 06/26/16 08:11 06/26/16 07:31 06/26/16 08:11 Intake & Output 06/25/16 06/26/16 06/27/16 06:59 06:59 06:59 Intake Total 1405 1250 Output Total 1800 1350 Balance -395 -100 Weight 59.2 kg 61.1 kg General appearance: PRESENT: mild distress Head exam: PRESENT: normocephalic Eye exam: PRESENT: EOMI Mouth exam: PRESENT: moist, neck supple Neck exam: ABSENT: JVD Respiratory exam: PRESENT: rhonchi - Scattered bilateral, wheezes - Minimal Cardiovascular exam: PRESENT: RRR. ABSENT: gallop GI/Abdominal exam: PRESENT: soft. ABSENT: distended, tenderness Extremities exam: PRESENT: other - Trace lower extremity edema Neurological exam: PRESENT: alert, awake Skin exam: PRESENT: dry, warm. ABSENT: cyanosis Results Laboratory Results: 06/24/16 06:54 06/25/16 05:14 Impressions: Chest X-Ray 06/19/16 00:00 IMPRESSION: Bilateral opacities-effusion. Differential diagnosis includes multifocal pneumonia, pulmonary edema, and neoplasm. Assessment & Plan - Diagnosis (1) Acute and chronic respiratory failure with hypoxia Is this a current diagnosis for this admission?: Yes (2) COPD exacerbation Is this a current diagnosis for this admission?: Yes (3) LLL pneumonia Qualifiers: Pneumonia type: due to unspecified organism Qualified Code(s): J18.1 - Lobar pneumonia, unspecified organism Is this a current diagnosis for this admission?: Yes (4) Acute diastolic CHF (congestive heart failure), NYHA class 4 Is this a current diagnosis for this admission?: Yes (5) Chronic renal disease, stage 4, severely decreased glomerular filtration rate (GFR) between 15-29 mL/min/1.73 square meter Is this a current diagnosis for this admission?: Yes (6) Diabetes mellitus Qualifiers: Diabetes mellitus type: type 2 Diabetes mellitus complication status: with unspecified complications Diabetes mellitus retirement insulin use: with ad terminal makeup operator use Qualified Code(s): E11.8 - Type 2 diabetes mellitus with unspecified complications; Z79.4 - termite technician (current) use of insulin Is this a current diagnosis for this admission?: Yes (7) Anemia Qualifiers: Anemia type: unspecified type Qualified Code(s): D64.9 - Anemia, unspecified Is this a current diagnosis for this admission?: Yes (8) HLD (hyperlipidemia) Qualifiers: Hyperlipidemia type: unspecified Qualified Code(s): E78.5 - Hyperlipidemia, unspecified Is this a current diagnosis for this admission?: Yes (9) HTN (hypertension) Qualifiers: Hypertension type: essential hypertension Qualified Code(s): I10 - Essential (primary) hypertension Is this a current diagnosis for this admission?: Yes - Time Time Spent with patient: 25-34 minutes - Plan Summary Plan Summary: We are going to humidify oxygen. Change oral Lasix to intravenous. Obtain a stat chest x-ray. Continue antibiotics, steroids, nebulizers. Continue supportive care.
[2016-06-26] MEDS: SERTRALINE HCL 50 MG TABLET PO SCH (09:22)
[2016-06-26] MEDS: VERAPAMIL HCL 240 MG TABLET.SA PO SCH ×2 (09:23→21:51)
[2016-06-26] MEDS: HEPARIN SOD (PORCINE) 5,000 UNIT/ML 1 ML SYRINGE SUBCUT SCH ×2 (09:23→21:52)
[2016-06-26] MEDS: FUROSEMIDE 20 MG TABLET PO SCH (09:23)
[2016-06-26] MEDS: FLUTICASONE/SALMETEROL DISKUS 250-50 MCG/DOSE IH SCH ×2 (09:24→21:52)
[2016-06-26] MEDS: THEOPHYLLINE ANHYDROUS 300 MG TAB.SR.12H PO SCH (09:24)
[2016-06-26] MEDS: PREDNISONE 20 MG TABLET PO SCH (12:13)
[2016-06-26] MEDS: INSULIN GLARGINE,HUM.REC.ANLOG 300 UNIT/3 ML INSULN.PEN SUBCUT SCH (21:52)
[2016-06-27] MEDS: AZTREONAM 1 GM in DEXTROSE 5%-WATER 100 ML IV SCH ×2 (05:09→13:23)
[2016-06-27] MEDS: LANSOPRAZOLE 30 MG TAB.RAP.DR PO SCH ×2 (05:09→16:16)
[2016-06-27] MEDS: IPRATROPIUM/ALBUTEROL 0.5-2.5 MG/3 ML AMPUL NEB SCH ×3 (08:01→19:37)
[2016-06-27] MEDS: HEPARIN SOD (PORCINE) 5,000 UNIT/ML 1 ML SYRINGE SUBCUT SCH ×2 (09:17→22:14)
[2016-06-27] MEDS: THEOPHYLLINE ANHYDROUS 300 MG TAB.SR.12H PO SCH (09:18)
[2016-06-27] MEDS: SERTRALINE HCL 50 MG TABLET PO SCH (09:18)
[2016-06-27] MEDS: FLUTICASONE/SALMETEROL DISKUS 250-50 MCG/DOSE IH SCH ×2 (09:18→22:14)
[2016-06-27] MEDS: FUROSEMIDE 20 MG TABLET PO SCH (09:19)
[2016-06-27] MEDS: VERAPAMIL HCL 240 MG TABLET.SA PO SCH ×2 (09:19→22:14)
[2016-06-27] MEDS: INSULIN LISPRO 100 UNIT/ML 3 ML VIAL SUBCUT PRN ×2 (12:34→17:29)
[2016-06-27 12:35] LABS: HEMATOCRIT 33.2 % (37.9-51.0); HEMOGLOBIN 10.8 g/dL (13.5-17.0); HGB HCT DIFFERENCE -0.8; MEAN CORPUSCULAR HEMOGLOBIN 28.5 pg (27.0-33.4); MEAN CORPUSCULAR HGB CONC 32.4 g/dL (32.0-36.0); MEAN CORPUSCULAR VOLUME 88 fl (80-97); RED BLOOD COUNT 3.78 10^6/uL (4.35-5.55); RED CELL DISTRIBUTION WIDTH 14.8 % (11.5-14.0); WHITE BLOOD COUNT 21.5 10^3/uL (4.0-10.5)
[2016-06-27] MEDS: PREDNISONE 20 MG TABLET PO SCH (12:35)
[2016-06-27] MEDS ORDERED: IMIPENEM/CILASTATIN SODIUM INJ 500 MG VIAL IV SCH (16:00)
--- NOTE | 2016-06-27 16:00 | PDOC PROGRESS REPORT ---
Subjective Progress Note for:: 06/27/16 Subjective:: Patient again reportedly remains on the ventilator/BiPAP, still with some shortness of breath. Reported patient without motivation and depressed due to recent of his son. No respiratory distress or temperature spikes. No nausea or vomiting reported. Appetite is poor. Physical Exam Vital Signs: Temp Pulse Resp BP Pulse Ox 97.3 F 88 16 152/52 H 96 06/27/16 12:16 06/27/16 14:00 06/27/16 15:29 06/27/16 12:16 06/27/16 15:29 Intake & Output 06/26/16 06/27/16 06/28/16 06:59 06:59 06:59 Intake Total 1250 675 118 Output Total 1350 1000 400 Balance -100 -325 -282 Weight 61.1 kg 59.8 kg General appearance: PRESENT: no acute distress, other - On BiPAP Head exam: PRESENT: normocephalic Eye exam: PRESENT: EOMI Mouth exam: PRESENT: moist, neck supple Neck exam: ABSENT: JVD Respiratory exam: PRESENT: rhonchi - Scattered bilateral. ABSENT: wheezes Cardiovascular exam: PRESENT: RRR. ABSENT: gallop GI/Abdominal exam: PRESENT: soft. ABSENT: distended, tenderness Extremities exam: PRESENT: other - Trace pretibial edema Neurological exam: PRESENT: alert, awake, oriented to situation Skin exam: PRESENT: dry, warm. ABSENT: cyanosis Results Laboratory Results: 06/27/16 12:22 06/25/16 05:14 06/27/16 12:22 WBC 21.5 H RBC 3.78 L Hgb 10.8 L Hct 33.2 L MCV 88 MCH 28.5 MCHC 32.4 RDW 14.8 H Plt Count 189 Impressions: Chest X-Ray 06/26/16 00:00 IMPRESSION: Unchanged left infiltrates over the past week. Assessment & Plan - Diagnosis (1) Acute and chronic respiratory failure with hypoxia Is this a current diagnosis for this admission?: Yes (2) COPD exacerbation Is this a current diagnosis for this admission?: Yes (3) LLL pneumonia Qualifiers: Pneumonia type: due to unspecified organism Qualified Code(s): J18.1 - Lobar pneumonia, unspecified organism Is this a current diagnosis for this admission?: Yes (4) Acute diastolic CHF (congestive heart failure), NYHA class 4 Is this a current diagnosis for this admission?: Yes (5) Chronic renal disease, stage 4, severely decreased glomerular filtration rate (GFR) between 15-29 mL/min/1.73 square meter Is this a current diagnosis for this admission?: Yes (6) Diabetes mellitus Qualifiers: Diabetes mellitus type: type 2 Diabetes mellitus complication status: with unspecified complications Diabetes mellitus residential insulin use: with continuous churn buttermaker use Qualified Code(s): E11.8 - Type 2 diabetes mellitus with unspecified complications; Z79.4 - care home (current) use of insulin Is this a current diagnosis for this admission?: Yes (7) Anemia Qualifiers: Anemia type: unspecified type Qualified Code(s): D64.9 - Anemia, unspecified Is this a current diagnosis for this admission?: Yes (8) HLD (hyperlipidemia) Qualifiers: Hyperlipidemia type: unspecified Qualified Code(s): E78.5 - Hyperlipidemia, unspecified Is this a current diagnosis for this admission?: Yes (9) HTN (hypertension) Qualifiers: Hypertension type: essential hypertension Qualified Code(s): I10 - Essential (primary) hypertension Is this a current diagnosis for this admission?: Yes - Time Time Spent with patient: 25-34 minutes - Plan Summary Plan Summary: We will recheck WBC the morning. We will discontinue current IV antibiotic and begin Primaxin intravenously. We will consult pulmonary, possible bronchoscopy. We will consult psychiatry service as well for depression and competency. Continue Zoloft. Continue steroids and nebulizers.
[2016-06-27] MEDS: IMIPENEM/CILASTATIN SODIUM 250 MG in NORMAL SALINE 100 ML IV SCH (17:37)
[2016-06-28] MEDS: INSULIN LISPRO 100 UNIT/ML 3 ML VIAL SUBCUT PRN ×3 (00:01→16:25)
[2016-06-28] MEDS: IMIPENEM/CILASTATIN SODIUM 250 MG in NORMAL SALINE 100 ML IV SCH ×4 (05:03→11:02)
[2016-06-28] MEDS: LANSOPRAZOLE 30 MG TAB.RAP.DR PO SCH ×2 (05:04→16:02)
[2016-06-28] MEDS: IPRATROPIUM/ALBUTEROL 0.5-2.5 MG/3 ML AMPUL NEB SCH ×3 (08:20→20:15)
[2016-06-28] MEDS: FLUTICASONE/SALMETEROL DISKUS 250-50 MCG/DOSE IH SCH ×2 (10:09→21:37)
[2016-06-28] MEDS: THEOPHYLLINE ANHYDROUS 300 MG TAB.SR.12H PO SCH (10:10)
[2016-06-28] MEDS: TIOTROPIUM BROMIDE DPI 5 CAP/KIT (18 MCG/CAP) IH SCH (10:11)
[2016-06-28] MEDS: VERAPAMIL HCL 240 MG TABLET.SA PO SCH ×2 (10:14→21:51)
[2016-06-28] MEDS: SERTRALINE HCL 50 MG TABLET PO SCH (10:14)
[2016-06-28] MEDS: HEPARIN SOD (PORCINE) 5,000 UNIT/ML 1 ML SYRINGE SUBCUT SCH ×2 (10:14→21:36)
[2016-06-28] MEDS: FUROSEMIDE 20 MG TABLET PO SCH (10:14)
[2016-06-28] MEDS: CALCIUM CARBONATE 500 MG TABLET PO SCH (11:02)
[2016-06-28] MEDS ORDERED: MEGESTROL ACETATE SUSP 400 MG/10 ML UDCUP PO ONE (11:15)
[2016-06-28] MEDS ORDERED: (PENDING PHARMACY ID) (Calcium Carbonate [Calcium] 600 MG) PO SCH (12:00)
[2016-06-28] MEDS: PREDNISONE 20 MG TABLET PO SCH (12:07)
[2016-06-28] MEDS: TAMSULOSIN HCL 0.4 MG CAP.SR.24H PO SCH (17:06)
[2016-06-28] MEDS: DOCUSATE SODIUM 100 MG CAPSULE PO SCH (17:06)
[2016-06-28] MEDS: FINASTERIDE 5 MG TABLET PO SCH (17:06)
--- NOTE | 2016-06-28 17:28 | PDOC CONSULTATION ---
Consultation Consult Date: 06/27/16 Attending physician:: SHARMILA RIVERA Consult reason:: dyspnea,cough History of Present Illness Admission Date/PCP: 06/13/16 01:32 History of Present Illness: RADHA VERA is a 86 year old male with underlying home O2 dependent COPD, 2-1/2 L oxygen per nasal cannula 10/10, along with insulin- dependent diabetes mellitus, hypertension, hyperlipidemia, esophageal reflux disease, congestive heart failure, easy bruising, prostatic hypertrophy, and arthritis, who presents to the emergency room for evaluation of a 3-4 day history of slowly progressive difficulty breathing.Has had associated shaking chills.He Was in fairly significant respiratory distress upon arrival in the emergency room, but now with application BiPAP, along with other treatment, he is breathing more comfortably. No ongoing chest discomfort. He states however that during his hospitalization he does not think he has been getting any better and has a cough productive of very thick phlegm that he is not able to produce every time he coughs he denies hemoptysis nausea vomiting diarrhea rhinorrhea or sore throat. Past Medical History Cardiac Medical History: Reports: Congestive Heart Failure, Hyperlipidema, Hypertension Denies: DVT, Myocardial Infarction, Pulmonary Embolism Pulmonary Medical History: Reports: Asthma, Bronchitis, Chronic Obstructive Pulmonary Disease (COPD), Pneumonia Denies: Sleep Apnea EENT Medical History: Reports: Eyes - Glasses, Ears - Partial hearing loss, Other - Easy bruising Neurological Medical History: Reports: Other - Prior TIA Denies: Hemorrhagic CVA, Ischemic CVA, Seizures Endocrine Medical History: Reports: Diabetes Mellitus Type 1 Denies: Diabetes Mellitus Type 2, Hyperthyroidism, Hypothyroidism Malignancy Medical History: Reports: Skin Cancer GI Medical History: Reports: Gastroesophageal Reflux Disease, Hiatal Hernia Denies: Cirrhosis, Hepatitis, Peptic Ulcer Disease Musculoskeltal Medical History: Reports: Arthritis Psychiatric Medical History: Denies: Alcohol Dependency, Depression, General Anxiety Disorder, Substance Abuse, Tobacco Dependency Hematology: Reports: Other - Easy bruising Denies: Anemia, Sickle Cell Disease Infectious Medical History: Reports: Methicillin-Resistant Staph Aureus Denies: Clostridium Difficile, Hepatitis B, Hepatitis C Past Surgical History Past Surgical History: Reports: Other - Excision of lipoma from his buttock. Colonoscopy 3. Social History Information Source: Patient, Dr. Looney, [facility] Records Lives with: Alone Smoking Status: Unknown if Ever Smoked Passive smoke exposure as: Both Frequency of Alcohol Use: None Hx Recreational Drug Use: No Drugs: None Hx Prescription Drug Abuse: No Do you have pets?: No Have you had any respiratory illnesses as a child?: No Have you been exposed to any sick contacts recently?: No Have you had any recent respiratory illnesses?: Yes Have you travelled outside of [place] in the past 12 months?: No - Advance Directive Resuscitation Status: Full Code Family History Family History: Reviewed & Not Pertinent Parental Family History Reviewed: Yes Children Family History Reviewed: Yes Sibling(s) Family History Reviewed.: Yes Medication/Allergy Home Medications: Acetaminophen [Tylenol Arthritis] 650 mg PO DAILY 06/13/16 Albuterol Sulfate [Proair Hfa Inhalation Aerosol 8.5 gm Mdi] 2 puff IH Q4HP PRN 06/13/16 Aspirin [Aspirin EC] 81 mg PO DAILY 06/13/16 Atorvastatin Calcium [Lipitor 10 mg Tablet] 10 mg PO QHS 06/13/16 Budesonide [Pulmicort Neb 0.5 mg/2 ml Ampul] 0.5 mg NEB RTQ12 06/13/16 Calcium Carbonate [Calcium] 600 mg PO NOON 06/13/16 Esomeprazole Mag Trihydrate [Nexium] 40 mg PO QPM 06/13/16 Fexofenadine HCl [Lis] 180 mg PO DAILY 06/13/16 Finasteride [Proscar 5 mg Tablet] 5 mg PO QPM 06/13/16 Fluticasone/Salmeterol [Advair 250-50 Diskus 28 dose] 1 inh IH Q12 06/13/16 Furosemide [Lasix] 20 mg PO DAILY 06/13/16 Gabapentin [Neurontin] 800 mg PO TID 06/13/16 Guaifenesin [Mucinex] 600 mg PO BID 06/13/16 Insulin Aspart [Novolog Insulin 100 Unit/1 ml 10 ml] 0 unit SUBCUT .SLD SCALE Insulin Glargine,Hum.rec.anlog [Lantus Solostar] 10 unit SQ QHS 06/13/16 Lisinopril [Prinivil 10 mg Tablet] 10 mg PO DAILY 06/13/16 Multivit-Min/FA/Lycopen/Lutein [Centrum Silver Men Tablet] 1 each PO DAILY 06/13 Tamsulosin HCl [Flomax 0.4 mg Cap.sr] 0.4 mg PO QPM 06/13/16 Tiotropium [place] [Spiriva Handihaler 18 mcg/dose (30 Dose)] 1 cap IH DAILY Verapamil HCl [Verapamil ER] 240 mg PO BID 06/13/16 Allergies/Adverse Reactions: Penicillins Allergy (Severe, Verified 01/24/14 11:39) HIVES SWELLING Sulfa (Sulfonamide Antibiotics) Allergy (Severe, Verified 01/24/14 11:39) Hives Physical Exam Vital Signs: Temp Pulse Resp BP Pulse Ox 97.8 F 102 H 18 150/62 H 93 06/27/16 15:39 06/27/16 15:39 06/27/16 15:39 06/27/16 15:39 06/27/16 15:39 Intake & Output 06/26/16 06/27/16 06/28/16 06:59 06:59 06:59 Intake Total 1250 675 118 Output Total 1350 1000 400 Balance -100 -325 -282 Weight 61.1 kg 59.8 kg General appearance: PRESENT: cooperative, disheveled, mild distress, thin Head exam: PRESENT: atraumatic, normocephalic Eye exam: PRESENT: conjunctiva pale, EOMI Mouth exam: PRESENT: dry mucosa, neck supple Neck exam: ABSENT: carotid bruit, JVD, lymphadenopathy, thyromegaly Respiratory exam: PRESENT: decreased breath sounds, rhonchi, symmetrical, unlabored, wheezes Cardiovascular exam: PRESENT: RRR, +S1, +S2 Pulses: PRESENT: normal radial pulses GI/Abdominal exam: PRESENT: normal bowel sounds, soft. ABSENT: distended, guarding, mass, organolmegaly, rebound, tenderness Rectal exam: PRESENT: deferred Musculoskeletal exam: PRESENT: normal inspection Neurological exam: PRESENT: alert, awake Psychiatric exam: PRESENT: normal mood Skin exam: PRESENT: dry, warm Results Laboratory Results: 06/27/16 12:22 06/25/16 05:14 06/27/16 12:22 WBC 21.5 H RBC 3.78 L Hgb 10.8 L Hct 33.2 L MCV 88 MCH 28.5 MCHC 32.4 RDW 14.8 H Plt Count 189 Impressions: Chest X-Ray 06/26/16 00:00 IMPRESSION: Unchanged left infiltrates over the past week. Assessment & Plan - Diagnosis (1) Acute and chronic respiratory failure Qualifiers: Respiratory failure complication: unspecified whether with hypoxia or hypercapnia Qualified Code(s): J96.20 - Acute and chronic respiratory failure, unspecified whether with hypoxia or hypercapnia Is this a current diagnosis for this admission?: Yes (2) COPD exacerbation Is this a current diagnosis for this admission?: Yes (3) Acute diastolic CHF (congestive heart failure), NYHA class 4 Is this a current diagnosis for this admission?: Yes (4) Chronic renal disease, stage 4, severely decreased glomerular filtration rate (GFR) between 15-29 mL/min/1.73 square meter Is this a current diagnosis for this admission?: Yes (5) Pneumonia Qualifiers: Pneumonia type: due to unspecified organism Laterality: bilateral Lung location: lower lobe of lung Qualified Code(s): J18.9 - Pneumonia, unspecified organism Is this a current diagnosis for this admission?: Yes
--- NOTE | 2016-06-28 17:39 | PDOC PROGRESS REPORT ---
Subjective Progress Note for:: 06/28/16 Subjective:: Patient seen earlier today on morning rounds. No acute events overnight. Patient reports he breathes better with the CPAP. Family agrees that he is not eating well. Patient denies chest pain, abdominal pain, nausea, vomiting, fevers, chills, diarrhea, headache, new onset weakness. Patient admits that he has not had a bowel movement in several days. Physical Exam Vital Signs: Temp Pulse Resp BP Pulse Ox 98.1 F 84 19 148/51 H 97 06/28/16 15:19 06/28/16 15:19 06/28/16 15:19 06/28/16 15:19 06/28/16 15:19 Intake & Output 06/27/16 06/28/16 06/29/16 06:59 06:59 06:59 Intake Total 675 955 118 Output Total 1000 1050 300 Balance -325 -95 -182 Weight 59.8 kg 58.5 kg Exam: General: Awake alert and answers questions appropriately, no acute respiratory distress HEENT: AT/NC, PERRL, EOMI, oropharynx is moist, pink, no scleral icterus, no conjunctival injection Neck: No JVD, trachea midline Chest: Bilateral rhonchi, no wheezes or rales CV: Regular rate and rhythm, normal S1 and S2, no murmur, rub, or gallop Abdomen: Soft, nontender to palpation, nondistended, active bowel sounds; no rebound, rigidity, or guarding Extremities: No cyanosis, clubbing or edema Neuro: Cranial nerves II through XII are grossly intact without focal deficits Psych: Normal mood and affect Results Laboratory Results: 06/27/16 12:22 06/25/16 05:14 Impressions: Chest X-Ray 06/26/16 00:00 IMPRESSION: Unchanged left infiltrates over the past week. Assessment & Plan - Diagnosis (1) Sepsis Is this a current diagnosis for this admission?: YesPlan: There was concern for patient having an atypical gram-negative pneumonia given his overall poor status and exceptional leukocytosis. Patient meets sepsis criteria with leukocytosis, respiratory rate, and source of pneumonia. (2) Pneumonia Qualifiers: Pneumonia type: due to unspecified organism Laterality: left Lung location: lower lobe of lung Qualified Code(s): J18.1 - Lobar pneumonia, unspecified organism Is this a current diagnosis for this admission?: YesPlan: Patient's cultures are currently negative and he's been on antibiotics for the last 15 days. We will stop his antibiotics as he's had no fever since admission and will continue to monitor. Feel the patient's current leukocytosis is secondary to demargination from steroids. 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 (3) COPD exacerbation Is this a current diagnosis for this admission?: YesPlan: Will decrease patient's prednisone. Patient appears to be improving from bronchospastic side. Concerned that patient is becoming volume overloaded impart due to high-dose steroids. (4) Acute and chronic respiratory failure with hypoxia Is this a current diagnosis for this admission?: YesPlan: Continue treatment for pneumonia. (5) Acute diastolic CHF (congestive heart failure), NYHA class 4 Is this a current diagnosis for this admission?: YesPlan: Currently hypervolemic. Most recent echo done in 03/03/2014 reveals EF greater than 65%, and mild diastolic dysfunction. Also appears to reveal pulmonary hypertension. Consider repeat echocardiogram. On Lasix continue to monitor I&O. Will obtain a.m. chest x-ray. (6) Chronic renal disease, stage 4, severely decreased glomerular filtration rate (GFR) between 15-29 mL/min/1.73 square meter Is this a current diagnosis for this admission?: YesPlan: Continue renally adjust medications. (7) Chronic respiratory failure with hypoxia Is this a current diagnosis for this admission?: YesPlan: Patient is normally on 2 L of nasal Oxygen (8) Diabetes mellitus Qualifiers: Diabetes mellitus type: type 2 Diabetes mellitus complication status: with unspecified complications Diabetes mellitus personnel representative insulin use: with shelter use Qualified Code(s): E11.8 - Type 2 diabetes mellitus with unspecified complications; Z79.4 - half-way (current) use of insulin Is this a current diagnosis for this admission?: Yes (9) Hypernatremia Is this a current diagnosis for this admission?: YesPlan: This was likely secondary to intravascular volume depletion. This is now resolved. (10) Anemia Qualifiers: Anemia type: unspecified type Qualified Code(s): D64.9 - Anemia, unspecified Is this a current diagnosis for this admission?: YesPlan: This appears to be baseline. We will continue to monitor and transfuse if below 8. 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 Currently poorly controlled likely secondary to steroids. Continue sliding scale insulin. (12) HLD (hyperlipidemia) Qualifiers: Hyperlipidemia type: unspecified Qualified Code(s): E78.5 - Hyperlipidemia, unspecified Is this a current diagnosis for this admission?: Yes (13) HTN (hypertension) Qualifiers: Hypertension type: essential hypertension Qualified Code(s): I10 - Essential (primary) hypertension Is this a current diagnosis for this admission?: YesPlan: Currently relatively well controlled on verapamil, and when necessary hydralazine. Consider therapy or beta elysia if tolerated. (14) DNR (do not resuscitate) Is this a current diagnosis for this admission?: YesPlan: Marlyn Roper is his surrogate decision maker, daughter - Time Time Spent with patient: 35 or more minutes Medications reviewed and adjusted accordingly: Yes Anticipated discharge: Acute Rehab
[2016-06-28] MEDS ORDERED: (PENDING PHARMACY ID) (Esomeprazole Mag Trihydrate [Nexium] 40 MG) PO SCH (18:00)
[2016-06-28] MEDS: BUDESONIDE NEB 0.5 MG/2 ML AMPUL NEB SCH (20:14)
[2016-06-28] MEDS: SENNOSIDES/DOCUSATE 8.6-50 MG 1 EACH TABLET PO SCH (21:50)
[2016-06-28] MEDS: ATORVASTATIN CALCIUM 10 MG TABLET PO SCH (21:50)
[2016-06-28] MEDS: GABAPENTIN 300 MG CAPSULE PO SCH (21:50)
[2016-06-28] MEDS: INSULIN GLARGINE,HUM.REC.ANLOG 300 UNIT/3 ML INSULN.PEN SUBCUT SCH ×2 (21:56)
[2016-06-29 04:50] LABS: ABSOLUTE LYMPHOCYTES (AUTO) 1.6 10^3/uL (0.5-4.7); ABSOLUTE MONOCYTES (AUTO) 0.6 10^3/uL (0.1-1.4); ABSOLUTE NEUT (AUTO) 12.5 10^3/uL (1.7-8.2); BASOPHILS % (AUTO) 0.2 % (0-2); HEMOGLOBIN 10.4 g/dL (13.5-17.0); HGB HCT DIFFERENCE 0.2; LYMPHOCYTES % (AUTO) 10.6 % (13-45); MEAN CORPUSCULAR HEMOGLOBIN 29.3 pg (27.0-33.4); MEAN CORPUSCULAR HGB CONC 33.5 g/dL (32.0-36.0); MEAN CORPUSCULAR VOLUME 88 fl (80-97); RED BLOOD COUNT 3.54 10^6/uL (4.35-5.55); RED CELL DISTRIBUTION WIDTH 14.7 % (11.5-14.0); SEGMENTED NEUTROPHILS % (AUTO) 85.2 % (42-78); WHITE BLOOD COUNT 14.7 10^3/uL (4.0-10.5)
[2016-06-29 05:02] LABS: ANION GAP 10 (5-19); BLOOD UREA NITROGEN 51 mg/dL (7-20); CALCIUM 8.5 mg/dL (8.4-10.2); CARBON DIOXIDE 33 mmol/L (22-30); CHLORIDE 98 mmol/L (98-107); CREATININE RESULT 1.36 mg/dL (0.52-1.25); GLUCOSE 166 mg/dL (75-110); MAGNESIUM 2.4 mg/dL (1.6-2.3); POTASSIUM 4.1 mmol/L (3.6-5.0); SODIUM 141.2 mmol/L (137-145)
[2016-06-29] MEDS: LANSOPRAZOLE 30 MG TAB.RAP.DR PO SCH ×2 (05:06→18:42)
[2016-06-29 05:10] LABS: PREALBUMIN 23.2 mg/dL (17.6-36.0)
[2016-06-29 06:46] LABS: ARTERIAL BLOOD BASE EXCESS 7.9 mmol/L; ARTERIAL BLOOD O2 SATURATION 91.4 % (94-98)
[2016-06-29] MEDS ORDERED: LANSOPRAZOLE 30 MG TAB.RAP.DR PO SCH (08:00)
[2016-06-29] MEDS: IPRATROPIUM/ALBUTEROL 0.5-2.5 MG/3 ML AMPUL NEB SCH ×3 (08:12→20:27)
[2016-06-29] MEDS: BUDESONIDE NEB 0.5 MG/2 ML AMPUL NEB SCH ×2 (08:12→20:27)
[2016-06-29] MEDS ORDERED: (PENDING PHARMACY ID) (Multivit-Min/Fa/Lycopen/Lutein [Centrum Silver Men Tablet] 1 EACH) PO SCH (10:00)
[2016-06-29] MEDS: MEGESTROL ACETATE SUSP 400 MG/10 ML UDCUP PO SCH (10:01)
[2016-06-29] MEDS: DOCUSATE SODIUM 100 MG CAPSULE PO SCH ×2 (10:01→18:42)
[2016-06-29] MEDS: VERAPAMIL HCL 240 MG TABLET.SA PO SCH ×2 (10:01→21:55)
[2016-06-29] MEDS: FUROSEMIDE 20 MG TABLET PO SCH (10:02)
[2016-06-29] MEDS: LISINOPRIL 10 MG TABLET PO SCH (10:02)
[2016-06-29] MEDS: ASPIRIN 81 MG TABLET, ENT COATED PO SCH (10:03)
[2016-06-29] MEDS: SERTRALINE HCL 50 MG TABLET PO SCH (10:03)
[2016-06-29] MEDS: GABAPENTIN 300 MG CAPSULE PO SCH ×2 (10:03→21:56)
[2016-06-29] MEDS: THEOPHYLLINE ANHYDROUS 300 MG TAB.SR.12H PO SCH (10:03)
[2016-06-29] MEDS: LORATADINE 10 MG TABLET PO SCH (10:03)
[2016-06-29] MEDS: HEPARIN SOD (PORCINE) 5,000 UNIT/ML 1 ML SYRINGE SUBCUT SCH ×2 (10:04→22:05)
[2016-06-29] MEDS ORDERED: BISACODYL 10 MG SUPP.RECT PR PRN (10:12)
[2016-06-29] MEDS ORDERED: ONDANSETRON HCL INJ/PF 4 MG/2 ML SDV IV PRN (10:12)
[2016-06-29] MEDS ORDERED: ONDANSETRON HCL INJ/PF 4 MG/2 ML SDV ONE (10:13)
[2016-06-29] MEDS ORDERED: ONDANSETRON HCL INJ/PF 4 MG/2 ML SDV IV ONE (11:00)
[2016-06-29] MEDS ORDERED: BISACODYL 10 MG SUPP.RECT PR ONE (11:00)
--- NOTE | 2016-06-29 11:14 | PDOC PROGRESS REPORT ---
Subjective Progress Note for:: 06/29/16 Subjective:: more alert;po intake remains poor Physical Exam Vital Signs: Temp Pulse Resp BP Pulse Ox 97.8 F 72 16 172/59 H 99 06/29/16 07:15 06/29/16 08:12 06/29/16 08:12 06/29/16 07:15 06/29/16 08:12 Intake & Output 06/28/16 06/29/16 06/30/16 06:59 06:59 06:59 Intake Total 955 261 Output Total 1050 650 Balance -95 -389 Weight 58.5 kg 58.3 kg General appearance: PRESENT: no acute distress, disheveled, hard of hearing, thin Head exam: PRESENT: atraumatic, normocephalic Eye exam: PRESENT: conjunctiva pale, EOMI Mouth exam: PRESENT: dry mucosa, neck supple Neck exam: ABSENT: carotid bruit, JVD, lymphadenopathy, thyromegaly Respiratory exam: PRESENT: crackles, decreased breath sounds, prolonged expiratory phas, rhonchi, symmetrical, unlabored Cardiovascular exam: PRESENT: RRR, +S1, +S2 Pulses: PRESENT: normal radial pulses GI/Abdominal exam: PRESENT: normal bowel sounds, soft. ABSENT: distended, guarding, mass, organolmegaly, rebound, tenderness Rectal exam: PRESENT: deferred Gentrourinary exam: PRESENT: indwelling catheter Neurological exam: PRESENT: alert, awake Skin exam: PRESENT: dry, warm Results Laboratory Results: 06/29/16 04:20 06/29/16 04:20 06/29/16 06/29/16 06/29/16 04:20 04:20 06:37 WBC 14.7 H RBC 3.54 L Hgb 10.4 L Hct 31.0 L MCV 88 MCH 29.3 MCHC 33.5 RDW 14.7 H Plt Count 152 Seg Neutrophils % 85.2 H Lymphocytes % 10.6 L Monocytes % 4.0 Eosinophils % 0.0 Basophils % 0.2 Absolute Neutrophils 12.5 H Absolute Lymphocytes 1.6 Absolute Monocytes 0.6 Absolute Eosinophils 0.0 Absolute Basophils 0.0 Carbonic Acid 1.03 L HCO3/H2CO3 Ratio 29:1 ABG pH 7.57 H ABG pCO2 34.1 L ABG pO2 52.0 L ABG HCO3 30.3 H ABG O2 Saturation 91.4 L ABG Base Excess 7.9 FiO2 2.5 L Sodium 141.2 Potassium 4.1 Chloride 98 Carbon Dioxide 33 H Anion Gap 10 BUN 51 H Creatinine 1.36 H Est GFR ( Amer) > 60 Est GFR (Non-Af Amer) 50 L Glucose 166 H Calcium 8.5 Magnesium 2.4 H Prealbumin 23.2 Impressions: Chest X-Ray 06/29/16 06:00 IMPRESSION: Improving infiltrates. Assessment & Plan - Diagnosis (1) Acute and chronic respiratory failure Qualifiers: Respiratory failure complication: unspecified whether with hypoxia or hypercapnia Qualified Code(s): J96.20 - Acute and chronic respiratory failure, unspecified whether with hypoxia or hypercapnia Is this a current diagnosis for this admission?: YesPlan: boderline hypoxemia on 2.5 L (2) COPD exacerbation Is this a current diagnosis for this admission?: Yes (3) Acute diastolic CHF (congestive heart failure), NYHA class 4 Is this a current diagnosis for this admission?: Yes (4) Chronic renal disease, stage 4, severely decreased glomerular filtration rate (GFR) between 15-29 mL/min/1.73 square meter Is this a current diagnosis for this admission?: Yes (5) Pneumonia Qualifiers: Pneumonia type: due to unspecified organism Laterality: bilateral Lung location: lower lobe of lung Qualified Code(s): J18.9 - Pneumonia, unspecified organism Is this a current diagnosis for this admission?: No
[2016-06-29] MEDS: TIOTROPIUM BROMIDE DPI 5 CAP/KIT (18 MCG/CAP) IH SCH (11:19)
[2016-06-29] MEDS: FLUTICASONE/SALMETEROL DISKUS 250-50 MCG/DOSE IH SCH ×2 (11:19→21:57)
[2016-06-29] MEDS: CALCIUM CARBONATE 500 MG TABLET PO SCH (13:59)
[2016-06-29] MEDS: PREDNISONE 20 MG TABLET PO SCH (14:00)
--- NOTE | 2016-06-29 14:18 | EKG REPORT ---
SEVERITY:- ABNORMAL ECG - SINUS RHYTHM VENTRICULAR PREMATURE COMPLEX SHORT OH INTERVAL, ACCELERATED AV CONDUCTION ABNORMAL T, CONSIDER ISCHEMIA, DIFFUSE LEADS BORDERLINE PROLONGED QT INTERVAL : Confirmed by: Rowdy Badillo MD 29-Jun-2016 14:17:31
--- NOTE | 2016-06-29 15:55 | PDOC PROGRESS REPORT ---
Subjective Progress Note for:: 06/29/16 Subjective:: Patient seen earlier today on morning rounds. No acute events overnight. Patient using CPAP at night. Patient is not eating well. Patient denies chest pain, abdominal pain, vomiting, fevers, chills, diarrhea, headache, new onset weakness. Patient admits that he has not had a bowel movement in several days and also complains of nausea. He reports he doesn't feel as able to eat because he will vomit. Physical Exam Vital Signs: Temp Pulse Resp BP Pulse Ox 97.8 F 67 16 172/59 H 100 06/29/16 07:15 06/29/16 07:15 06/29/16 07:15 06/29/16 07:15 06/29/16 07:15 Intake & Output 06/28/16 06/29/16 06/30/16 06:59 06:59 06:59 Intake Total 955 261 Output Total 1050 650 Balance -95 -389 Weight 58.5 kg 58.3 kg Exam: General: Awake alert and answers questions appropriately, no acute respiratory distress HEENT: AT/NC, PERRL, EOMI, oropharynx is moist, pink, no scleral icterus, no conjunctival injection Neck: No JVD, trachea midline Chest: Bilateral rhonchi and rales CV: Regular rate and rhythm, normal S1 and S2, no murmur, rub, or gallop Abdomen: Soft, nontender to palpation, nondistended, hypoactive bowel sounds; no rebound, rigidity, or guarding Extremities: No cyanosis, clubbing or edema Neuro: Cranial nerves II through XII are grossly intact without focal deficits Psych: Depressed Results Laboratory Results: 06/29/16 04:20 06/29/16 04:20 06/29/16 06/29/16 06/29/16 04:20 04:20 06:37 WBC 14.7 H RBC 3.54 L Hgb 10.4 L Hct 31.0 L MCV 88 MCH 29.3 MCHC 33.5 RDW 14.7 H Plt Count 152 Seg Neutrophils % 85.2 H Lymphocytes % 10.6 L Monocytes % 4.0 Eosinophils % 0.0 Basophils % 0.2 Absolute Neutrophils 12.5 H Absolute Lymphocytes 1.6 Absolute Monocytes 0.6 Absolute Eosinophils 0.0 Absolute Basophils 0.0 Carbonic Acid 1.03 L HCO3/H2CO3 Ratio 29:1 ABG pH 7.57 H ABG pCO2 34.1 L ABG pO2 52.0 L ABG HCO3 30.3 H ABG O2 Saturation 91.4 L ABG Base Excess 7.9 FiO2 2.5 L Sodium 141.2 Potassium 4.1 Chloride 98 Carbon Dioxide 33 H Anion Gap 10 BUN 51 H Creatinine 1.36 H Est GFR ( Amer) > 60 Est GFR (Non-Af Amer) 50 L Glucose 166 H Calcium 8.5 Magnesium 2.4 H Prealbumin 23.2 Impressions: Chest X-Ray 06/26/16 00:00 IMPRESSION: Unchanged left infiltrates over the past week. Assessment & Plan - Diagnosis (1) Sepsis Is this a current diagnosis for this admission?: YesPlan: There was concern for patient having an atypical gram-negative pneumonia given his overall poor status and exceptional leukocytosis. Patient meets sepsis criteria with leukocytosis, respiratory rate, and source of pneumonia. Patient has completed 15 days of antibiotics. These at this time. This has resolved (2) Pneumonia Qualifiers: Pneumonia type: due to unspecified organism Laterality: bilateral Lung location: lower lobe of lung Qualified Code(s): J18.9 - Pneumonia, unspecified organism Is this a current diagnosis for this admission?: YesPlan: Patient's cultures are currently negative and he's been on antibiotics for the last 15 days. We will stop his antibiotics as he's had no fever since admission and will continue to monitor. Feel the patient's current leukocytosis is secondary to demargination from steroids. 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 (3) COPD exacerbation Is this a current diagnosis for this admission?: YesPlan: Will decrease patient's prednisone again tomorrow. Patient appears to be improving from bronchospastic side. Concerned that patient is becoming volume overloaded in part due to high-dose steroids. (4) Acute and chronic respiratory failure with hypoxia Is this a current diagnosis for this admission?: YesPlan: Continue treatment for pneumonia. Patient currently on 2.5 L oxygen and uses 2L at home. (5) Acute diastolic CHF (congestive heart failure), NYHA class 4 Is this a current diagnosis for this admission?: YesPlan: Currently hypervolemic. Most recent echo done in 03/03/2014 reveals EF greater than 65%, and mild diastolic dysfunction. Also appears to reveal pulmonary hypertension. Repeat echocardiogram is currently pending. On Lasix continue to monitor I&O. Monitor for arrhythmia. Will obtain a.m. chest x-ray. (6) Chronic renal disease, stage 4, severely decreased glomerular filtration rate (GFR) between 15-29 mL/min/1.73 square meter Is this a current diagnosis for this admission?: YesPlan: Continue renally adjust medications. Have set up outpatient follow-up with Dr. Blakely (7) Chronic respiratory failure with hypoxia Is this a current diagnosis for this admission?: YesPlan: Patient is normally on 2 L of nasal Oxygen (8) Diabetes mellitus Qualifiers: Diabetes mellitus type: type 2 Diabetes mellitus complication status: with unspecified complications Diabetes mellitus terminal computer operator insulin use: with longterm use Qualified Code(s): E11.8 - Type 2 diabetes mellitus with unspecified complications; Z79.4 - [facility] (current) use of insulin Is this a current diagnosis for this admission?: Yes (9) Hypernatremia Is this a current diagnosis for this admission?: YesPlan: This was likely secondary to intravascular volume depletion. This is now resolved. (10) Anemia Qualifiers: Anemia type: unspecified type Qualified Code(s): D64.9 - Anemia, unspecified Is this a current diagnosis for this admission?: YesPlan: This appears to be baseline. We will continue to monitor and transfuse if below 8. 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 Currently fair controlled likely secondary to steroids. Continue sliding scale insulin. (12) HLD (hyperlipidemia) Qualifiers: Hyperlipidemia type: unspecified Qualified Code(s): E78.5 - Hyperlipidemia, unspecified Is this a current diagnosis for this admission?: Yes (13) HTN (hypertension) Qualifiers: Hypertension type: essential hypertension Qualified Code(s): I10 - Essential (primary) hypertension Is this a current diagnosis for this admission?: YesPlan: Currently relatively well controlled on verapamil, and when necessary hydralazine. Consider beta elysia if tolerated. (14) DNR (do not resuscitate) Is this a current diagnosis for this admission?: YesPlan: Marlyn Judson is his surrogate decision maker, daughter - Time Time Spent with patient: 25-34 minutes Medications reviewed and adjusted accordingly: Yes Anticipated discharge: Acute Rehab Within: when bed available
--- NOTE | 2016-06-29 18:38 | XCELERA REPORT ---
[address] [address] Transthoracic Echocardiogram Report Name: RADHA VERA Age: 86 yrs Gender: Male : 1930 Patient Status: Inpatient Patient Location: [id number]\A Study Date: 06/29/2016 10:49 AM Height: 64 in Weight: 128 lb BSA: 1.6 m2 Procedure: A two-dimensional transthoracic echocardiogram with color flow and Doppler was performed. The study was technically difficult with many images being suboptimal in quality. Reason For Study: chf History: CHF. Ordering Physician: MAYRA NUÑEZ Performed By: Raven Olivas Interpretation Summary The left ventricle is normal in size. There is normal left ventricular wall thickness. LV EF is > than 65% Left ventricular systolic function is normal. Doppler measurements suggest impaired left ventricular relaxation, which is associated with grade I/IV or mild diastolic dysfunction The left ventricular wall motion is normal. There is no thrombus. The right ventricle is grossly normal size. The left atrial size is normal. There is no evidence of mitral valve prolapse. There is no mitral valve stenosis. There is a trace to mild amount of mitral regurgitation There is no LVOT obstruction. There is Aortic sclerosis without stenosis. There is a mild to moderate amount of aortic regurgitation There is no tricuspid stenosis. There is a mild amount of tricuspid regurgitation There is moderate pulmonary hypertension by echo RVSP is 50 mm of Hg , with RA mean of 5. There is no pericardial effusion. MMode/2D Measurements \T\ Calculations RVDd: 3.2 cm LVIDd: 4.0 cm FS: 30.8 % Ao root diam: 2.8 cm IVSd: 0.92 cm LVIDs: 2.8 cm EDV(Teich): 71.6 ml LVPWd: 0.90 cm ESV(Teich): 29.4 ml Ao root area: 6.0 cm2 EF(Teich): 59.0 % LA dimension: 3.5 cm Doppler Measurements \T\ Calculations MV E max radha: MV P1/2t max radha: Ao V2 max: AI max radha: 82.8 cm/sec 83.9 cm/sec 180.5 cm/sec 517.2 cm/sec MV A max radha: MV P1/2t: 75.8 msec Ao max PG: AI max P.1 cm/sec 13.0 mmHg 107.0 mmHg MV E/A: 0.73 MVA(P1/2t): 2.9 cm2 AI dec slope: MV dec slope: 324.3 cm/sec2 334.7 cm/sec2 MV dec time: AI P1/2t: 0.26 sec 452.6 msec LV V1 max PG: PA V2 max: PI end-d radha: TR max radha: 7.5 mmHg 82.7 cm/sec 144.4 cm/sec 336.5 cm/sec LV V1 max: PA max P.7 mmHg TR max P.1 cm/sec 45.3 mmHg Left Ventricle The left ventricle is normal in size. There is normal left ventricular wall thickness. LV EF is > than 65%. Left ventricular systolic function is normal. Doppler measurements suggest impaired left ventricular relaxation, which is associated with grade I/IV or mild diastolic dysfunction. The left ventricular wall motion is normal. There is no thrombus. There is no ventricular septal defect visualized. Right Ventricle The right ventricle is grossly normal size. The right ventricle is not well visualized secondary to technical limitations. Atria The right atrium is normal. The left atrial size is normal. The interatrial septum is intact with no evidence for an atrial septal defect. Mitral Valve There is no evidence of mitral valve prolapse. There is no vegetation seen on the mitral valve. There is no mitral valve stenosis. There is a trace to mild amount of mitral regurgitation. Aortic Valve There is no aortic valvular vegetation. There is no LVOT obstruction. There is Aortic sclerosis without stenosis. There is a mild to moderate amount of aortic regurgitation. Tricuspid Valve There is no tricuspid stenosis. There is a mild amount of tricuspid regurgitation. There is moderate pulmonary hypertension by echo. RVSP is 50 mm of Hg , with RA mean of 5. Pulmonic Valve There is no pulmonic valvular stenosis. There is a trace amount of pulmonic regurgitation. Great Vessels The aortic root is normal size. Effusions There is no pericardial effusion. : MAYRA NUÑEZ > Cynthia Hammer
[2016-06-29] MEDS: TAMSULOSIN HCL 0.4 MG CAP.SR.24H PO SCH (18:42)
[2016-06-29] MEDS: FINASTERIDE 5 MG TABLET PO SCH (18:42)
[2016-06-29] MEDS: SENNOSIDES/DOCUSATE 8.6-50 MG 1 EACH TABLET PO SCH (21:54)
[2016-06-29] MEDS: ATORVASTATIN CALCIUM 10 MG TABLET PO SCH (21:54)
[2016-06-29] MEDS: RISPERIDONE 0.25 MG TABLET PO SCH (21:56)
[2016-06-29] MEDS: INSULIN GLARGINE,HUM.REC.ANLOG 300 UNIT/3 ML INSULN.PEN SUBCUT SCH (22:26)
[2016-06-29] MEDS: INSULIN LISPRO 100 UNIT/ML 3 ML VIAL SUBCUT PRN (22:26)
[2016-06-30 05:48] LABS: ABSOLUTE LYMPHOCYTES (AUTO) 0.9 10^3/uL (0.5-4.7); ABSOLUTE MONOCYTES (AUTO) 0.5 10^3/uL (0.1-1.4); ABSOLUTE NEUT (AUTO) 11.3 10^3/uL (1.7-8.2); BASOPHILS % (AUTO) 0.1 % (0-2); HEMATOCRIT 25.8 % (37.9-51.0); HEMOGLOBIN 8.9 g/dL (13.5-17.0); HGB HCT DIFFERENCE 0.9; LYMPHOCYTES % (AUTO) 7.4 % (13-45); MEAN CORPUSCULAR HEMOGLOBIN 30.1 pg (27.0-33.4); MEAN CORPUSCULAR HGB CONC 34.5 g/dL (32.0-36.0); MEAN CORPUSCULAR VOLUME 87 fl (80-97); MONOCYTES % (AUTO) 4.3 % (3-13); RED BLOOD COUNT 2.96 10^6/uL (4.35-5.55); RED CELL DISTRIBUTION WIDTH 14.9 % (11.5-14.0); SEGMENTED NEUTROPHILS % (AUTO) 88.2 % (42-78); WHITE BLOOD COUNT 12.8 10^3/uL (4.0-10.5)
[2016-06-30 06:07] LABS: ANION GAP 10 (5-19); BLOOD UREA NITROGEN 62 mg/dL (7-20); CARBON DIOXIDE 30 mmol/L (22-30); CHLORIDE 95 mmol/L (98-107); CREATININE RESULT 1.57 mg/dL (0.52-1.25); GLUCOSE 229 mg/dL (75-110); MAGNESIUM 2.4 mg/dL (1.6-2.3); POTASSIUM 3.8 mmol/L (3.6-5.0); SODIUM 134.8 mmol/L (137-145)
[2016-06-30] MEDS: LANSOPRAZOLE 30 MG TAB.RAP.DR PO SCH (06:07)
[2016-06-30] MEDS: INSULIN LISPRO 100 UNIT/ML 3 ML VIAL SUBCUT PRN ×4 (07:04→22:16)
[2016-06-30] MEDS: IPRATROPIUM/ALBUTEROL 0.5-2.5 MG/3 ML AMPUL NEB SCH ×3 (08:06→20:29)
[2016-06-30] MEDS: BUDESONIDE NEB 0.5 MG/2 ML AMPUL NEB SCH ×2 (08:06→20:29)
--- NOTE | 2016-06-30 09:34 | PSYCHOLOGICAL NOTE ---
Psych Note - Psych Note Psych Note: Met with Patient to assess his depression and complete a capacity evaluation as requested by Dr. Irvin., attending hospitalist. A review of his complete medical chart was conducted prior to evaluation. Upon entering his room. Patient was observed to be lying in bed with a nasal cannula. He responded to his name and indicated he was willing to participate in the evaluation following explanation of the purpose of evaluation. Patient correctly identified where he was and reason for admission. He initially denied being depressed and stating he wished to go home. He reported he had no desire to give up or quit trying to beat his health conditions because he had "already tried and didn't work." When asked to clarify his statement, he indicated he goes to bed, closes his eyes, and keeps waking up when he does not want to. He reported currently he wants to keep fighting. However, when pointed out it appeared as though he had given up as evidenced by his refusal to eat or take some of his medications, he responded, "I guess." He went on to report he could not get the food to "go down, it gets stuck." Again, when asked to clarify he stated, "I don't know, it just gets stuck." I indicated it seemed odd that it was quite sudden and he did not provide a response. Discussed with Patient that a swallow evaluation was ordered by his Physician and once the results were issued, re-assessment of his cognitive status would occur. He was advised it was felt he was depressed and volitionally refusing to eat secondary to his depression. Education was provided about depression and symptoms related to such. He agreed to intake fluids but reported he was not capable of preparing his drink (i.e.putting the splenda and straw in the tea) due to severe fatigue. He was advised he could ring his call dejesus and someone would assist him. This clinician prepared his tea at his request and he consumed 3/4 of the content. Patient is noted to currently live alone with family reportedly living next door , but staying the night to assist in caretaking responsibilities. Patient is also noted to have multiple medical disorders such as insulin dependent diabetes , Stage 4 renal failure, COPD, bilateral pneumonia, hypertension, hyperlipidemia , etc. Currently, Patient is not felt capable of returning home to live independently with part-time caretaking. His depression is such that his motivation, initiation, and cognitive processing impair his ability to adequately care for himself or truly participate in his care. Patient was alert and oriented to person, place, time, and circumstance. Mood appeared depressed and affect was mood congruent. He denied suicidal / homicidal ideation, intent or plan or history of the same. He denied psychosis or history of the same, and there was no evidence of delusions. Thought processes were organized, linear, and rational. Conversational speech was reciprocal, and but notable for slow response, luis, low tone, and rate. Intellectual abilities were estimated within the average range. Recent, immediate, and rote memory was intact. Attention and concentration was fair. Insight, judgment, and impulse control was considered poor. Review of medications indicate Patient is currently prescribed Zoloft 50 mg daily. However, it appears the medication is not effective in addressing his depression. [facility] contracted psychiatrist recommends considering discontinuing the Zoloft and starting Celexa 20 mg daily as Celexa is thought to provide some energy properties and address the vegetative symptoms and signs of depression. Further evaluation revealed neurocognitive function within normal limits suggesting, at this time, he maintains the capacity to make decisions on his own behalf, that could be in his best interest. However, it is clear, he is depressed and the symptoms of his depression coupled with his chronic medical issues and malnourishment, are impacting his ability to care for himself, even in a structured setting. He indicated his "step-daughter" Marlyn, is his "assistant store leader and power of associate director." It may be helpful, at least temporarily, to implement the Power of Chief Load Dispatcher in making medical decisions to assist the Patient in regaining nourishment and replenishment of fluids, as well as giving medications he might want to refuse. . Once the Patient is closer to baseline with regard to willingness to feed and hydrate self, the active POA status can be re-evaluated. 1. 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 Multiple Medical Disorders Impression / Plan / recommendations: * 1.Currently Patient does not meet criteria for lack of capacity. He reported having Power of Chief Load Dispatcher-his "step-daughter" Gay. Power of Chief Load Dispatcher should be considered for temporary implementation until either the Patient regains a level of health (i.e.nourishment and hydration) or declines to such a point he cannot / will not be able to cognitively participate in his care. * 2. Patient's depression is felt to be impacting his speed of processing, initiation and motivation coupled with his multiple medical problems. [facility] contracted psychiatrist recommends stopping the Zoloft and starting Celexa 20 mg daily as it tends to have some energy properties which address the vegetative symptoms of depression. * 3. Patient, at this time, is not recommended to return home to live independently secondary to his depressive symptoms. Though he has family next door who assist him in the evening, it was felt he would need more assistance during the day. Either home health with a day aid or a higher level of care will be required to help the Patient his daily routine and to keep him safe and out of medical jeopardy. * 4. Patient has a swallowing evaluation scheduled. Following the results of the evaluation, cognitive / psych re-evaluation is recommended to again assess his mental status and need for POA or guardianship (depending on results). Thank you for this kind referral. Please contact the behavioral health office at [phone] for questions or information.
[2016-06-30] MEDS: ASPIRIN 81 MG TABLET, ENT COATED PO SCH (09:59)
[2016-06-30] MEDS: DOCUSATE SODIUM 100 MG CAPSULE PO SCH ×2 (09:59→15:31)
[2016-06-30] MEDS: FUROSEMIDE 20 MG TABLET PO SCH (09:59)
[2016-06-30] MEDS: VERAPAMIL HCL 240 MG TABLET.SA PO SCH ×2 (09:59→23:08)
[2016-06-30] MEDS: THEOPHYLLINE ANHYDROUS 300 MG TAB.SR.12H PO SCH (09:59)
[2016-06-30] MEDS: SERTRALINE HCL 50 MG TABLET PO SCH (09:59)
[2016-06-30] MEDS: GABAPENTIN 300 MG CAPSULE PO SCH ×2 (09:59→23:08)
[2016-06-30] MEDS: LORATADINE 10 MG TABLET PO SCH (09:59)
[2016-06-30] MEDS: MULTIVITAMIN TABLET PO SCH (09:59)
[2016-06-30] MEDS: MEGESTROL ACETATE SUSP 400 MG/10 ML UDCUP PO SCH (09:59)
[2016-06-30] MEDS: LISINOPRIL 10 MG TABLET PO SCH (09:59)
[2016-06-30] MEDS: FLUTICASONE/SALMETEROL DISKUS 250-50 MCG/DOSE IH SCH ×2 (10:04→22:16)
[2016-06-30] MEDS: TIOTROPIUM BROMIDE DPI 5 CAP/KIT (18 MCG/CAP) IH SCH (10:04)
[2016-06-30] MEDS: HEPARIN SOD (PORCINE) 5,000 UNIT/ML 1 ML SYRINGE SUBCUT SCH (10:05)
[2016-06-30] MEDS: CALCIUM CARBONATE 500 MG TABLET PO SCH (12:10)
--- NOTE | 2016-06-30 14:40 | ST Inp Modified Barium Swallow ---
Medical Diagnosis - Medical Diagnoses Medical Diagnosis Description & ICD-10 Code(s): s/sx of aspiration - ICD-10 Tx Diagnosis Coding (1) Dysphagia, oropharyngeal phase ICD-10 Code(s): R13.12 - DYSPHAGIA, OROPHARYNGEAL PHASE (2) Dysphagia, pharyngeal phase ICD-10 Code(s): R13.13 - DYSPHAGIA, PHARYNGEAL PHASE ST Inpatient [facility] – [place] - General Date: 06/30/16 Date of Onset: 06/13/16 - History History Obtained From: Patient - per EMR -: Medical - per EMR- PNA, acute and chronic respiratory failure, 3-4 day breathing difficulty, LLL PNA, PNA, CKD, DNR, poor PO intake. Chest xray- chronic scarring, infiltrate inleft lung consistent with PNA. Most recent chest xray showed improving infiltrates. 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 Medications: Medications Reviewed Allergies: Refer to medical record - Subjective Current Nutritional Means: PO Current PO Diet: Soft Current Symptoms: Poor intake, Coughing, Wet/gurgly voice, Pneumonia Pain: 0/5 - Objective Assessment: Upright, Left Lateral - Food Trials Food Trials Used: Thin liquids, Dennard thick liquids, Pureed, Soft solids The Patient: Was Able to Self Feed - Assessment Labial Function: Within Normal Limits Lingual Function: Within Functional Limits Mandibular Function: Within Normal Limits Dentition: Dentures-Upper, Dentures-Lower Velo-Pharyngeal Function: Unremarkable Laryngeal Function: Volitional Cough, Volitional Swallow, weak voicing, hoarse - Pharyngeal Stage Initiation of Pharyngeal Stage: Delayed Reflex Delay Time (seconds): 2 Decreased Laryngeal Elevation: Yes - moderate-severe Reduced Velo-Pharyngeal Closure: no Reduced Pressure Generation: Yes - moderate-severe Reduced Tongue Base Retraction: Yes - severe Pre-Swallowing Pooling in Valleculae: Moderate - mild-moderate Pre-Swallowing Pooling in Pyriforms: Mild Reduced Thyro-Hyiod Approximation: Yes - moderate Reduced Epiglottic Excursion: Yes - mild-moderate Reduced Pharyngeal Peristalsis: Yes - mild-moderate Post Swallow Residuals in Valleculae: Significant - moderate-severe puree and soft solids, mild-moderate on thin, moderate on nectar Post Swallow Residuals in Pyriforms: Mild - mild-moderate on nectar and puree - Impression/Summary Laryngeal Penetration: Yes, Deep, Delayed cough, during swallow, after swallow Tracheal Aspiration: yes - on thin, and all mixed consistencies-delayed, deep, delayed cough, during swallow, after swallow Productive Cough: No Effective Clearing: no Ineffective Compensatory Strategies: chin tuck, throat clear & reswallow, hard swallow Patient Presents With: Pharyngeal stage dysph., Oral-Pharyngeal dysph., Severe Risk of Aspiration: Severe Risk of Nutritional Compromise: Severe - pt refusing PO intake, stated to ST "it 's scary". - Recommendations NPO: yes Dysphagia Therapy with SALES DIRECTOR: Yes, Inpatient, Home Health Other Recommendations: 1) Pt is at high risk of aspiration on any PO diet. Recommend NPO with alternate means nutrition/hydration. If pt, family, and medical team wish to continue PO intake, likely safest PO diet is thin liquids and soft solids, however pt will aspirate during and after the swallow as observed during MBSS. 2) Acute care ST to begin dysphagia treatment x2 next week. 3) Recommend home health ST after discharge. SUMMARY: Pt presents with a severe dysphagia characterized by aspiration of thin liquids during the swallow, aspiration of nectar, puree and soft solid residuals after the swallow. ST discussed risk of aspiration on PO diet, aspiration PNA, and recommendation for NPO with alternate mean nutrition/hydration. ST discussed quality of life pt's wishes. Pt stated he was unsure of wishes at this time. ST attempted to contact MD oliving machine operator, metal pickling equipment operator states left message on MD's voicemail to return call. ST contacted RN and informed or results and recommendations, RN verbalized understanding. - Time Total Time: 20 Total Timed Minutes: 0 ST F.L. Impairment Category - Rationale Based On Rationale Based On: Clin Find., Obj Measures - Swallowing Current G8996: CM 80-99% Impaired Goal G8997: CL 60-79% Impaired
[2016-06-30] MEDS: PREDNISONE 20 MG TABLET PO SCH (15:29)
[2016-06-30] MEDS: TAMSULOSIN HCL 0.4 MG CAP.SR.24H PO SCH (15:31)
[2016-06-30] MEDS: FINASTERIDE 5 MG TABLET PO SCH (15:31)
--- NOTE | 2016-06-30 19:14 | PDOC PROGRESS REPORT ---
Subjective Progress Note for:: 06/30/16 Subjective:: Patient seen earlier today on morning rounds. No acute events overnight. Patient using CPAP at night. Patient is not eating well. Having coughing with swallowing. Patient denies chest pain, abdominal pain, vomiting, fevers, chills, diarrhea, headache, new onset weakness. Patient admits that he has not had a bowel movement in several days and also complains of nausea. Patient also states that he wants to go home and sit on his porch. Physical Exam Vital Signs: Temp Pulse Resp BP Pulse Ox 98.4 F 79 16 105/39 L 91 L 06/30/16 04:16 06/30/16 04:16 06/30/16 04:16 06/30/16 04:16 06/30/16 04:16 Intake & Output 06/29/16 06/30/16 07/01/16 06:59 06:59 06:59 Intake Total 261 245 Output Total 650 900 Balance -389 -655 Weight 58.3 kg 65.2 kg Exam: General: Awake alert and answers questions appropriately, no acute respiratory distress HEENT: AT/NC, PERRL, EOMI, oropharynx is moist, pink, no scleral icterus, no conjunctival injection Neck: No JVD, trachea midline Chest: Bilateral rhonchi and rales CV: Regular rate and rhythm, normal S1 and S2, no murmur, rub, or gallop Abdomen: Soft, nontender to palpation, nondistended, hypoactive bowel sounds; no rebound, rigidity, or guarding Extremities: No cyanosis, clubbing or edema Neuro: Cranial nerves II through XII are grossly intact without focal deficits Psych: Depressed Results Laboratory Results: 06/30/16 05:22 06/30/16 05:22 06/30/16 06/30/16 05:22 05:22 WBC 12.8 H RBC 2.96 L Hgb 8.9 L Hct 25.8 L MCV 87 MCH 30.1 MCHC 34.5 RDW 14.9 H Plt Count 125 L Seg Neutrophils % 88.2 H Lymphocytes % 7.4 L Monocytes % 4.3 Eosinophils % 0.0 Basophils % 0.1 Absolute Neutrophils 11.3 H Absolute Lymphocytes 0.9 Absolute Monocytes 0.5 Absolute Eosinophils 0.0 Absolute Basophils 0.0 Sodium 134.8 L Potassium 3.8 Chloride 95 L Carbon Dioxide 30 Anion Gap 10 BUN 62 H Creatinine 1.57 H Est GFR ( Amer) 51 L Est GFR (Non-Af Amer) 42 L Glucose 229 H Calcium 8.0 L Magnesium 2.4 H Impressions: Chest X-Ray 06/29/16 06:00 IMPRESSION: Improving infiltrates. Assessment & Plan - Diagnosis (1) Sepsis Is this a current diagnosis for this admission?: YesPlan: There was concern for patient having an atypical gram-negative pneumonia given his overall poor status and exceptional leukocytosis. Patient meets sepsis criteria with leukocytosis, respiratory rate, and source of pneumonia. Patient has completed 15 days of antibiotics. These at this time. This has resolved (2) Pneumonia Qualifiers: Pneumonia type: due to unspecified organism Laterality: bilateral Lung location: lower lobe of lung Qualified Code(s): J18.9 - Pneumonia, unspecified organism Is this a current diagnosis for this admission?: YesPlan: Patient's cultures are currently negative and he's been on antibiotics for the last 15 days. We will stop his antibiotics as he's had no fever since admission and will continue to monitor. Feel the patient's current leukocytosis is secondary to demargination from steroids. 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 (3) COPD exacerbation Is this a current diagnosis for this admission?: YesPlan: Will decrease patient's prednisone again today. Patient appears to be improving from bronchospastic side. Concerned that patient is becoming volume overloaded in part due to high-dose steroids. (4) Acute and chronic respiratory failure with hypoxia Is this a current diagnosis for this admission?: YesPlan: Continue treatment for pneumonia. Patient currently on 2.5 L oxygen and uses 2L at home. (5) Acute diastolic CHF (congestive heart failure), NYHA class 4 Is this a current diagnosis for this admission?: YesPlan: Currently hypervolemic. Most recent echo done in 03/03/2014 reveals EF greater than 65%, and mild diastolic dysfunction. Also appears to reveal pulmonary hypertension. Repeat echocardiogram is currently pending. On Lasix continue to monitor I&O. Monitor for arrhythmia. (6) Chronic renal disease, stage 4, severely decreased glomerular filtration rate (GFR) between 15-29 mL/min/1.73 square meter Is this a current diagnosis for this admission?: YesPlan: Continue renally adjust medications. Have set up outpatient follow-up with Dr. Blakely (7) Chronic respiratory failure with hypoxia Is this a current diagnosis for this admission?: YesPlan: Patient is normally on 2 L of nasal Oxygen (8) Diabetes mellitus Qualifiers: Diabetes mellitus type: type 2 Diabetes mellitus complication status: with unspecified complications Diabetes mellitus detention insulin use: with detention use Qualified Code(s): E11.8 - Type 2 diabetes mellitus with unspecified complications; Z79.4 - superintendent terminal (current) use of insulin Is this a current diagnosis for this admission?: Yes (9) Hypernatremia Is this a current diagnosis for this admission?: Yes (10) Anemia Qualifiers: Anemia type: unspecified type Qualified Code(s): D64.9 - Anemia, unspecified Is this a current diagnosis for this admission?: Yes (11) 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 Qualifiers: Diabetes mellitus complication detail: with unspecified neuropathy Qualified Code(s): E10.40 - Type 1 diabetes mellitus with diabetic neuropathy, unspecified Is this a current diagnosis for this admission?: Yes (12) HLD (hyperlipidemia) Qualifiers: Hyperlipidemia type: unspecified Qualified Code(s): E78.5 - Hyperlipidemia, unspecified Is this a current diagnosis for this admission?: Yes (13) HTN (hypertension) Qualifiers: Hypertension type: essential hypertension Qualified Code(s): I10 - Essential (primary) hypertension Is this a current diagnosis for this admission?: Yes (14) DNR (do not resuscitate) Is this a current diagnosis for this admission?: Yes (15) Dysphagia, oropharyngeal phase Is this a current diagnosis for this admission?: YesPlan: Plan to discuss with his family tomorrow results of modified barium swallow and possible hospice. - Time Time Spent with patient: 25-34 minutes Medications reviewed and adjusted accordingly: Yes
[2016-06-30] MEDS: SENNOSIDES/DOCUSATE 8.6-50 MG 1 EACH TABLET PO SCH (23:08)
[2016-06-30] MEDS: RISPERIDONE 0.25 MG TABLET PO SCH (23:08)
[2016-06-30] MEDS: ATORVASTATIN CALCIUM 10 MG TABLET PO SCH (23:08)
[2016-07-01] MEDS: INSULIN GLARGINE,HUM.REC.ANLOG 300 UNIT/3 ML INSULN.PEN SUBCUT SCH ×2 (06:24→22:15)
[2016-07-01] MEDS: HEPARIN SOD (PORCINE) 5,000 UNIT/ML 1 ML SYRINGE SUBCUT SCH ×3 (06:24→22:15)
[2016-07-01] MEDS: BUDESONIDE NEB 0.5 MG/2 ML AMPUL NEB SCH ×2 (09:09→20:27)
[2016-07-01] MEDS: IPRATROPIUM/ALBUTEROL 0.5-2.5 MG/3 ML AMPUL NEB SCH ×3 (09:09→20:27)
[2016-07-01] MEDS: GABAPENTIN 300 MG CAPSULE PO SCH ×2 (09:33→22:14)
[2016-07-01] MEDS: FUROSEMIDE 20 MG TABLET PO SCH (09:33)
[2016-07-01] MEDS: ASPIRIN 81 MG TABLET, ENT COATED PO SCH (09:33)
[2016-07-01] MEDS: LORATADINE 10 MG TABLET PO SCH (09:35)
[2016-07-01] MEDS: VERAPAMIL HCL 240 MG TABLET.SA PO SCH ×2 (09:35→22:15)
[2016-07-01] MEDS: LISINOPRIL 10 MG TABLET PO SCH (09:36)
[2016-07-01] MEDS: DOCUSATE SODIUM 100 MG CAPSULE PO SCH ×2 (09:36→18:18)
[2016-07-01] MEDS: SERTRALINE HCL 50 MG TABLET PO SCH (09:37)
[2016-07-01] MEDS: MULTIVITAMIN TABLET PO SCH (09:38)
[2016-07-01] MEDS: LANSOPRAZOLE 30 MG TAB.RAP.DR PO SCH (09:38)
[2016-07-01] MEDS: THEOPHYLLINE ANHYDROUS 300 MG TAB.SR.12H PO SCH (09:39)
[2016-07-01] MEDS: MEGESTROL ACETATE SUSP 400 MG/10 ML UDCUP PO SCH (09:40)
[2016-07-01] MEDS: FLUTICASONE/SALMETEROL DISKUS 250-50 MCG/DOSE IH SCH ×2 (09:42→22:15)
[2016-07-01] MEDS: TIOTROPIUM BROMIDE DPI 5 CAP/KIT (18 MCG/CAP) IH SCH (09:43)
--- NOTE | 2016-07-01 10:20 | PDOC PROGRESS REPORT ---
Subjective Progress Note for:: 07/01/16 Subjective:: awake alert wants to go"home" Physical Exam Vital Signs: Temp Pulse Resp BP Pulse Ox 98.0 F 87 18 147/49 H 93 07/01/16 07:57 07/01/16 09:15 07/01/16 09:15 07/01/16 07:57 07/01/16 09:15 Intake & Output 06/30/16 07/01/16 07/02/16 06:59 06:59 06:59 Intake Total 245 414 Output Total 900 620 Balance -655 -206 Weight 65.2 kg 59.3 kg General appearance: PRESENT: no acute distress, cooperative, disheveled, hard of hearing Head exam: PRESENT: atraumatic, normocephalic Eye exam: PRESENT: conjunctiva pale, EOMI Mouth exam: PRESENT: dry mucosa, neck supple Neck exam: ABSENT: carotid bruit, JVD, lymphadenopathy, thyromegaly Respiratory exam: PRESENT: decreased breath sounds, prolonged expiratory phas, rhonchi, symmetrical, unlabored, wheezes Cardiovascular exam: PRESENT: RRR, +S1, +S2 Pulses: PRESENT: normal radial pulses GI/Abdominal exam: PRESENT: normal bowel sounds, soft. ABSENT: distended, guarding, mass, organolmegaly, rebound, tenderness Rectal exam: PRESENT: deferred Gentrourinary exam: PRESENT: indwelling catheter Neurological exam: PRESENT: awake Skin exam: PRESENT: dry, warm Results Laboratory Results: 06/30/16 05:22 06/30/16 05:22 Impressions: Chest X-Ray 06/29/16 06:00 IMPRESSION: Improving infiltrates. Modified Barium Swallow 06/30/16 00:00 IMPRESSION: LARYNGEAL PENETRATION AND ASPIRATION DESCRIBED.PLEASE SEE SPEECH PATHOLOGIST REPORT FOR OTHER FINDINGS AND RECOMMENDATIONS. Assessment & Plan - Diagnosis (1) Acute and chronic respiratory failure Qualifiers: Respiratory failure complication: unspecified whether with hypoxia or hypercapnia Qualified Code(s): J96.20 - Acute and chronic respiratory failure, unspecified whether with hypoxia or hypercapnia Is this a current diagnosis for this admission?: YesPlan: Most recent arterial blood gas demonstrates ABG this borderline on 2-1/2 L of O2 (2) COPD exacerbation Is this a current diagnosis for this admission?: Yes (3) Acute diastolic CHF (congestive heart failure), NYHA class 4 Is this a current diagnosis for this admission?: Yes (4) Chronic renal disease, stage 4, severely decreased glomerular filtration rate (GFR) between 15-29 mL/min/1.73 square meter Is this a current diagnosis for this admission?: Yes (5) Pneumonia Qualifiers: Pneumonia type: due to unspecified organism Laterality: bilateral Lung location: lower lobe of lung Qualified Code(s): J18.9 - Pneumonia, unspecified organism Is this a current diagnosis for this admission?: Yes (6) Chronic pulmonary aspiration Qualifiers: Encounter type: subsequent encounter Qualified Code(s): T17.908D - Unspecified foreign body in respiratory tract, part unspecified causing other injury, subsequent encounter Is this a current diagnosis for this admission?: YesPlan: Patient is not interested in PEG he wants to go home
[2016-07-01] MEDS ORDERED: PREDNISONE 20 MG TABLET PO SCH (13:00)
[2016-07-01] MEDS: CALCIUM CARBONATE 500 MG TABLET PO SCH (13:21)
--- NOTE | 2016-07-01 16:01 | PDOC PROGRESS REPORT ---
Subjective Progress Note for:: 07/01/16 Subjective:: Patient seen earlier today on morning rounds. No acute events overnight. Patient using CPAP at night. Patient seen with his 2 daughters, son, and power of admitted attorneys (next or neighbor) . We discussed his conditions and his desires at length. We also discussed the results of his modified barium swallow at length. Physical Exam Vital Signs: Temp Pulse Resp BP Pulse Ox 98.0 F 99 18 147/49 H 90 L 07/01/16 07:57 07/01/16 14:12 07/01/16 14:12 07/01/16 07:57 07/01/16 14:12 Intake & Output 06/30/16 07/01/16 07/02/16 06:59 06:59 06:59 Intake Total 245 414 Output Total 900 620 Balance -655 -206 Weight 65.2 kg 59.3 kg Exam: General: Awake alert and oriented 3, no acute respiratory distress HEENT: AT/NC, PERRL, EOMI, oropharynx is moist, pink, no scleral icterus, no conjunctival injection Neck: No JVD, trachea midline Chest: Bibasilar Bilateral rales CV: Regular rate and rhythm, normal S1 and S2, no murmur, rub, or gallop Abdomen: Soft, nontender to palpation, nondistended, hypoactive bowel sounds; no rebound, rigidity, or guarding Extremities: No cyanosis, clubbing or edema Neuro: Cranial nerves II through XII are grossly intact without focal deficits Psych: Depressed Results Laboratory Results: 06/30/16 05:22 06/30/16 05:22 Impressions: Chest X-Ray 06/29/16 06:00 IMPRESSION: Improving infiltrates. Modified Barium Swallow 06/30/16 00:00 IMPRESSION: LARYNGEAL PENETRATION AND ASPIRATION DESCRIBED.PLEASE SEE SPEECH PATHOLOGIST REPORT FOR OTHER FINDINGS AND RECOMMENDATIONS. Assessment & Plan - Diagnosis (1) Dysphagia, oropharyngeal phase Is this a current diagnosis for this admission?: YesPlan: Patient is unsafe to take in anything by mouth. Will liberalize his diet. He at this time has elected to go home with hospice. His family is in supportive of this. (2) Sepsis Is this a current diagnosis for this admission?: YesPlan: This has resolved. There was concern for patient having an atypical gram-negative pneumonia given his overall poor status and exceptional leukocytosis. Patient meets sepsis criteria with leukocytosis, respiratory rate, and source of pneumonia. Patient has completed 15 days of antibiotics. (3) Pneumonia Qualifiers: Pneumonia type: due to unspecified organism Laterality: bilateral Lung location: lower lobe of lung Qualified Code(s): J18.9 - Pneumonia, unspecified organism Is this a current diagnosis for this admission?: YesPlan: Patient's cultures are currently negative and he's been on antibiotics for the last 15 days. We will stop his antibiotics as he's had no fever since admission and will continue to monitor. Feel the patient's current leukocytosis is secondary to demargination from steroids. His acidosis has continued to improve. 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 (4) COPD exacerbation Is this a current diagnosis for this admission?: YesPlan: Patient on prednisone. Patient appears to be improving from bronchospastic side. (5) Acute and chronic respiratory failure with hypoxia Is this a current diagnosis for this admission?: YesPlan: Continue treatment for pneumonia. Patient currently on 2.5 L oxygen and uses 2L at home. (6) Acute diastolic CHF (congestive heart failure), NYHA class 4 Is this a current diagnosis for this admission?: YesPlan: Currently hypervolemic. Echo done on 06/29/2016 reveals EF greater than 65%, and mild diastolic dysfunction. Mild to moderate aortic regurgitation, mild mitral regurgitation Moderate pulmonary hypertension. On Lasix continue to monitor I&O. Monitor for arrhythmia. (7) Chronic renal disease, stage 4, severely decreased glomerular filtration rate (GFR) between 15-29 mL/min/1.73 square meter Is this a current diagnosis for this admission?: YesPlan: Continue renally adjust medications. (8) Chronic respiratory failure with hypoxia Is this a current diagnosis for this admission?: YesPlan: Patient is normally on 2 L of nasal Oxygen At this time, I have discussed patient's overall conditions in cases with his family. Patient at this time reports that he wants to go home and is amenable to going home with hospice. Patient's family is amenable to taking him home with hospice. (9) Diabetes mellitus Qualifiers: Diabetes mellitus type: type 2 Diabetes mellitus complication status: with unspecified complications Diabetes mellitus half-way insulin use: with watermelon inspector use Qualified Code(s): E11.8 - Type 2 diabetes mellitus with unspecified complications; Z79.4 - terminal manager (current) use of insulin Is this a current diagnosis for this admission?: Yes (10) Hypernatremia Is this a current diagnosis for this admission?: Yes (11) Anemia Qualifiers: Anemia type: unspecified type Qualified Code(s): D64.9 - Anemia, unspecified Is this a current diagnosis for this admission?: Yes (12) 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 Qualifiers: Diabetes mellitus complication detail: with unspecified neuropathy Qualified Code(s): E10.40 - Type 1 diabetes mellitus with diabetic neuropathy, unspecified Is this a current diagnosis for this admission?: Yes (13) HLD (hyperlipidemia) Qualifiers: Hyperlipidemia type: unspecified Qualified Code(s): E78.5 - Hyperlipidemia, unspecified Is this a current diagnosis for this admission?: Yes (14) HTN (hypertension) Qualifiers: Hypertension type: essential hypertension Qualified Code(s): I10 - Essential (primary) hypertension Is this a current diagnosis for this admission?: Yes (15) DNR (do not resuscitate) Is this a current diagnosis for this admission?: Yes - Time Time Spent with patient: 35 or more minutes Medications reviewed and adjusted accordingly: Yes Anticipated discharge: Home Within: within 24 hours
[2016-07-01] MEDS: INSULIN LISPRO 100 UNIT/ML 3 ML VIAL SUBCUT PRN ×2 (17:03→22:18)
[2016-07-01] MEDS: FINASTERIDE 5 MG TABLET PO SCH (18:18)
[2016-07-01] MEDS: TAMSULOSIN HCL 0.4 MG CAP.SR.24H PO SCH (18:18)
[2016-07-01] MEDS: ATORVASTATIN CALCIUM 10 MG TABLET PO SCH (22:14)
[2016-07-01] MEDS: SENNOSIDES/DOCUSATE 8.6-50 MG 1 EACH TABLET PO SCH (22:14)
[2016-07-01] MEDS: RISPERIDONE 0.25 MG TABLET PO SCH (22:14)
[2016-07-02] MEDS: INSULIN LISPRO 100 UNIT/ML 3 ML VIAL SUBCUT PRN (06:32)
[2016-07-02] MEDS: LANSOPRAZOLE 30 MG TAB.RAP.DR PO SCH (07:33)
[2016-07-02] MEDS: BUDESONIDE NEB 0.5 MG/2 ML AMPUL NEB SCH (08:21)
[2016-07-02] MEDS: IPRATROPIUM/ALBUTEROL 0.5-2.5 MG/3 ML AMPUL NEB SCH (08:21)
[2016-07-02 09:30] VITALS: BP 147/42
[2016-07-02] MEDS: MEGESTROL ACETATE SUSP 400 MG/10 ML UDCUP PO SCH (09:32)
[2016-07-02] MEDS: FLUTICASONE/SALMETEROL DISKUS 250-50 MCG/DOSE IH SCH (09:33)
[2016-07-02] MEDS: TIOTROPIUM BROMIDE DPI 5 CAP/KIT (18 MCG/CAP) IH SCH (09:33)
[2016-07-02] MEDS: THEOPHYLLINE ANHYDROUS 300 MG TAB.SR.12H PO SCH (09:33)
[2016-07-02] MEDS: LISINOPRIL 10 MG TABLET PO SCH (09:34)
[2016-07-02] MEDS: DOCUSATE SODIUM 100 MG CAPSULE PO SCH (09:34)
[2016-07-02] MEDS: LORATADINE 10 MG TABLET PO SCH (09:35)
[2016-07-02] MEDS: SERTRALINE HCL 50 MG TABLET PO SCH (09:35)
[2016-07-02] MEDS: MULTIVITAMIN TABLET PO SCH (09:35)
[2016-07-02] MEDS: ASPIRIN 81 MG TABLET, ENT COATED PO SCH (09:35)
[2016-07-02] MEDS: GABAPENTIN 300 MG CAPSULE PO SCH (09:35)
[2016-07-02] MEDS: VERAPAMIL HCL 240 MG TABLET.SA PO SCH (09:35)
[2016-07-02] MEDS: FUROSEMIDE 20 MG TABLET PO SCH (09:36)
[2016-07-02] MEDS: HEPARIN SOD (PORCINE) 5,000 UNIT/ML 1 ML SYRINGE SUBCUT SCH (09:36)
--- NOTE | 2016-07-02 09:55 | PDOC PROGRESS REPORT ---
Subjective Progress Note for:: 06/30/16 Subjective:: awake alert wants to go Physical Exam Vital Signs: Temp Pulse Resp BP Pulse Ox 97.9 F 89 18 147/42 H 89 L 07/02/16 07:47 07/02/16 08:23 07/02/16 08:23 07/02/16 07:47 07/02/16 08:23 Intake & Output 07/01/16 07/02/16 07/03/16 06:59 06:59 06:59 Intake Total 414 972 Output Total 620 1250 Balance -206 -278 Weight 59.3 kg 60.5 kg General appearance: PRESENT: no acute distress, cooperative, disheveled, obese Head exam: PRESENT: atraumatic, normocephalic Eye exam: PRESENT: conjunctiva pale, EOMI Mouth exam: PRESENT: dry mucosa, neck supple Neck exam: ABSENT: carotid bruit, JVD, lymphadenopathy, thyromegaly Respiratory exam: PRESENT: decreased breath sounds, prolonged expiratory phas, rales, rhonchi, unlabored Cardiovascular exam: PRESENT: RRR, +S1, +S2 Pulses: PRESENT: normal radial pulses GI/Abdominal exam: PRESENT: normal bowel sounds, soft. ABSENT: distended, guarding, mass, organolmegaly, rebound, tenderness Rectal exam: PRESENT: deferred Gentrourinary exam: PRESENT: indwelling catheter Neurological exam: PRESENT: awake Psychiatric exam: PRESENT: flat affect Skin exam: PRESENT: dry, warm Results Laboratory Results: 06/30/16 05:22 06/30/16 05:22 Impressions: Chest X-Ray 06/29/16 06:00 IMPRESSION: Improving infiltrates. Modified Barium Swallow 06/30/16 00:00 IMPRESSION: LARYNGEAL PENETRATION AND ASPIRATION DESCRIBED.PLEASE SEE SPEECH PATHOLOGIST REPORT FOR OTHER FINDINGS AND RECOMMENDATIONS. Assessment & Plan - Diagnosis (1) Acute and chronic respiratory failure Qualifiers: Respiratory failure complication: unspecified whether with hypoxia or hypercapnia Qualified Code(s): J96.20 - Acute and chronic respiratory failure, unspecified whether with hypoxia or hypercapnia Is this a current diagnosis for this admission?: Yes (2) COPD exacerbation Is this a current diagnosis for this admission?: Yes (3) Acute diastolic CHF (congestive heart failure), NYHA class 4 Is this a current diagnosis for this admission?: Yes (4) Chronic renal disease, stage 4, severely decreased glomerular filtration rate (GFR) between 15-29 mL/min/1.73 square meter Is this a current diagnosis for this admission?: Yes (5) Pneumonia Qualifiers: Pneumonia type: due to unspecified organism Laterality: bilateral Lung location: lower lobe of lung Qualified Code(s): J18.9 - Pneumonia, unspecified organism Is this a current diagnosis for this admission?: Yes (6) Chronic pulmonary aspiration Qualifiers: Encounter type: subsequent encounter Qualified Code(s): T17.908D - Unspecified foreign body in respiratory tract, part unspecified causing other injury, subsequent encounter Is this a current diagnosis for this admission?: Yes
--- NOTE | 2016-07-02 17:06 | PDOC DISCHARGE SUMMARY ---
General - Admit/Disc Date/PCP Admission Date/Primary Care Provider: 06/13/16 01:32 Dr. Gavin Muhammad Discharge Date: 07/02/16 - Discharge Diagnosis (1) Sepsis Is this a current diagnosis for this admission?: Yes (2) Pneumonia Is this a current diagnosis for this admission?: Yes (3) Dysphagia, oropharyngeal phase Is this a current diagnosis for this admission?: Yes (4) COPD exacerbation Is this a current diagnosis for this admission?: Yes (5) Acute and chronic respiratory failure with hypoxia Is this a current diagnosis for this admission?: Yes (6) Acute diastolic CHF (congestive heart failure), NYHA class 4 Is this a current diagnosis for this admission?: Yes (7) Chronic renal disease, stage 4, severely decreased glomerular filtration rate (GFR) between 15-29 mL/min/1.73 square meter Is this a current diagnosis for this admission?: Yes (8) Chronic respiratory failure with hypoxia Is this a current diagnosis for this admission?: Yes (9) Diabetes mellitus Is this a current diagnosis for this admission?: Yes (10) Hypernatremia Is this a current diagnosis for this admission?: Yes (11) Anemia Is this a current diagnosis for this admission?: Yes (12) 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 Is this a current diagnosis for this admission?: Yes (13) HLD (hyperlipidemia) Is this a current diagnosis for this admission?: Yes (14) HTN (hypertension) Is this a current diagnosis for this admission?: Yes (15) DNR (do not resuscitate) Is this a current diagnosis for this admission?: Yes - Additional Information Resuscitation Status: Full Code Discharge Diet: As Tolerated Discharge Activity: Activity As Tolerated, Balance Activity w/Rest, Weigh Daily Home Medications: Acetaminophen [Tylenol Arthritis] 650 mg PO DAILY 06/13/16 Albuterol Sulfate [Proair HFA Inhalation Aerosol 8.5 gm MDI] 2 puff IH Q4HP PRN 06/13/16 Aspirin [Aspirin EC] 81 mg PO DAILY 06/13/16 Atorvastatin Calcium [Lipitor 10 mg Tablet] 10 mg PO QHS 06/13/16 Budesonide [Pulmicort Neb 0.5 mg/2 ml Ampul] 0.5 mg NEB RTQ12 06/13/16 Calcium Carbonate [Calcium] 600 mg PO NOON 06/13/16 Esomeprazole Mag Trihydrate [Nexium] 40 mg PO QPM 06/13/16 Fexofenadine HCl [Lis] 180 mg PO DAILY 06/13/16 Finasteride [Proscar 5 mg Tablet] 5 mg PO QPM 06/13/16 Fluticasone/Salmeterol [Advair 250-50 Diskus 28 dose] 1 inh IH Q12 06/13/16 Lisinopril [Prinivil 10 mg Tablet] 10 mg PO DAILY 06/13/16 Multivit-Min/FA/Lycopen/Lutein [Centrum Silver Men Tablet] 1 each PO DAILY 06/13 Tamsulosin HCl [Flomax 0.4 mg Cap.sr] 0.4 mg PO QPM 06/13/16 Verapamil HCl [Verapamil ER] 240 mg PO BID 06/13/16 Albuterol Sulfate [Ventolin 0.083% Neb 2.5 mg/3 mL Ampul] 2.5 mg NEB RTQ2HP PRN vial.neb 07/02/16 Bisacodyl [Dulcolax 10 mg Supp.rect] 10 mg WI DAILYP PRN supp.rect 07/02/16 Docusate Sodium [Colace 100 mg Capsule] 100 mg PO BID capsule 07/02/16 Furosemide [Lasix] 20 mg PO BID #0 07/02/16 Gabapentin [Neurontin 300 mg Capsule] 300 mg PO Q12 capsule 07/02/16 Insulin Glargine,Hum.rec.anlog [Lantus Insulin 100 Unit/mL] 15 unit SUBCUT QHS insuln.pen 07/02/16 Megestrol Acetate [Megace Flor 400 mg/10 ml Udcup] 400 mg PO DAILY udc Prednisone [Deltasone 20 mg Tablet] 20 mg PO DAILY@1300 tablet 07/02/16 Risperidone [Risperdal 0.25 mg Tablet] 0.25 mg PO QHS tablet 07/02/16 Sennosides/Docusate 8.6-50 mg [Senna Plus Tablet] 2 each PO QHS tablet Sertraline HCl [Zoloft 50 mg Tablet] 50 mg PO DAILY tablet 07/02/16 Tiotropium [place] [Spiriva Handihaler 5 Cap/Kit (18 Mcg/Cap)] 1 cap IH DAILY kit 07/02/16 History of Present Illness History of Present Illness: Please see H&P for full history of present illness Hospital Course Hospital Course: Patient is an 86-year-old male with a history of home O2 dependent COPD who presented to the emergency department with increased shortness of breath. Patient was found to have left lower lobe pneumonia, acute COPD exacerbation, and acute on chronic diastolic congestive heart failure. Patient was initially placed on BiPAP as well as broad-spectrum antibiotics and steroids. He was given scheduled nebulized treatments as well as gentle diuresis. Although overall patient continued to somewhat improve he completed a full 15 days of IV antibiotics before these were stopped. His cultures remained negative throughout his stay. Patient was started on an antidepressant with some improvement. Patient continued to eat poorly and was evaluated by speech therapy. A modified barium swallow was performed and patient was found to be unsafe for any texture or consistency food. At this time, we reassessed patient's needs and expectations of care and at this point he stated he just wanted to go home. Hospice was set up for this patient was discharged home in stable condition. Physical Exam Vital Signs: Temp Pulse Resp BP Pulse Ox 97.9 F 89 18 147/42 H 89 L 07/02/16 07:47 07/02/16 08:23 07/02/16 08:23 07/02/16 07:47 07/02/16 08:23 Intake & Output 07/01/16 07/02/16 07/03/16 06:59 06:59 06:59 Intake Total 414 972 Output Total 620 1250 Balance -206 -278 Weight 59.3 kg 60.5 kg Exam: General: Awake alert and oriented 3, no acute respiratory distress HEENT: AT/NC, PERRL, EOMI, oropharynx is moist, pink, no scleral icterus, no conjunctival injection Neck: No JVD, trachea midline Chest: Diminished bilateral lower lobes CV: Regular rate and rhythm, normal S1 and S2, no murmur, rub, or gallop Abdomen: Soft, nontender to palpation, nondistended, hypoactive bowel sounds; no rebound, rigidity, or guarding Extremities: No cyanosis, clubbing or edema Neuro: Cranial nerves II through XII are grossly intact without focal deficits Psych: Normal mood and affect Results Laboratory Results: 06/30/16 05:22 06/30/16 05:22 Impressions: Chest X-Ray 06/29/16 06:00 IMPRESSION: Improving infiltrates. Modified Barium Swallow 06/30/16 00:00 IMPRESSION: LARYNGEAL PENETRATION AND ASPIRATION DESCRIBED.PLEASE SEE SPEECH PATHOLOGIST REPORT FOR OTHER FINDINGS AND RECOMMENDATIONS. Qualifiers PATEINT BEING DISCHARGED WITH ANY OF THE FOLLOWING DIAGNOSIS?: Heart Failure HF Pt being discharged on ACEI for LVEF less than 40%?: No Reason(s) for not prescribing ACEI:: Hospice Care HF Pt being discharged on ARBS for LVEF less than 40%?: No Reason(s) for not prescribing ARBS:: Hospice Care HF Pt with Afib discharged with Warfarin?: No Reason(s) for not prescribing Warfarin:: Hospice Care HF Pt discharged on evidence-based Beta Mirela:: No Reason(s) for not prescribing evidence-based Beta Mirela:: Hospice Care Plan Time Spent: Less than 30 Minutes
== END 2016-07-02 11:51 | disposition hospice, home (50) | DRG 871 ==
LOC: ER 20:57 → UNDOADMIN 06-13 00:26 → EH 06-13 00:26 → 3W 06-13 20:30
PROVIDERS: ADMIT Family Medicine; ATTEND Family Medicine
DX: A41.9 Sepsis, unspecified organism (principal); J96.21 Acute and chronic respiratory failure with hypoxia; J18.1 Lobar pneumonia, unspecified organism; I50.33 Acute on chronic diastolic (congestive) heart failure; Z66 Do not resuscitate; J44.0 Chronic obstructive pulmonary disease with (acute) lower respiratory infection; I13.0 Hypertensive heart and chronic kidney disease with heart failure and stage 1 through stage 4 chronic kidney disease, or unspecified chronic kidney disease; N18.4 Chronic kidney disease, stage 4 (severe); J44.1 Chronic obstructive pulmonary disease with (acute) exacerbation; F32.1 Major depressive disorder, single episode, moderate; E87.0 Hyperosmolality and hypernatremia; E10.22 Type 1 diabetes mellitus with diabetic chronic kidney disease; E78.5 Hyperlipidemia, unspecified; E10.40 Type 1 diabetes mellitus with diabetic neuropathy, unspecified; R13.12 Dysphagia, oropharyngeal phase; D64.9 Anemia, unspecified; K21.9 Gastro-esophageal reflux disease without esophagitis; N40.0 Benign prostatic hyperplasia without lower urinary tract symptoms; Z60.2 Problems related to living alone; Z79.82 Long term (current) use of aspirin; Z79.4 Long term (current) use of insulin; Z79.51 Long term (current) use of inhaled steroids; Z79.899 Other long term (current) drug therapy; Z88.0 Allergy status to penicillin; Z88.2 Allergy status to sulfonamides; Z87.891 Personal history of nicotine dependence; Z99.81 Dependence on supplemental oxygen
CPT/HCPCS: 36415; 36600; 71010; 74230; 80048; 80053; 80198; 80202; 81001; 82550; 82553; 82803; 82962; 83735; 83880; 84134; 84443; 84484; 85025; 85027; 87040; 87086; 93005; 93010; 93306; 94640; 94660; 94667; 94799; 96365; 96375; 99291; G8978-GP; G8979-GP; G8996-GN; G8997-GN; G8998-GN; J0456; J0743; J1580; J1644; J1815; J1940; J1956; J2270; J2405; J2920; J2930; J3370; J3490; J7030; J7060; J7512; J7620